=== PATIENT | male | born 1965 | race Caucasian/White ===

== ENCOUNTER 2017-09-10 14:23 | Emergency (ER) | payer SELFPAY ==
[2017-09-10 15:48] LABS: #Basophils 0.1 thou/uL (0.0-0.2); #Eosinphils 0.1 thou/uL (0.0-0.7); #Lymphocytes 2.9 thou/uL (1.20-3.40); #Monocytes 0.5 thou/uL (0.11-0.59); %Basophils 0.7 % (0.0-1.0); %Eosinophils 0.8 % (0.0-10.0); %Lymphocytes 33.9 % (21.0-51.0); %Monocytes 5.3 % (0.0-10.0); %Neutrophils 59.3 % (42.0-75.0); Hemoglobin 15.2 g/dL (14.0-18.0); Mean Corpuscular HGB CONC 33.5 g/dL (32.0-36.0); Mean Corpuscular Hemoglobin 31.2 pg (27.0-31.0); Mean Corpuscular Volume 93.2 fl (80.0-94.0); Mean Platelet Volume 10.1 fL (7.4-10.4); Platelet Count 184 thou/uL (130-400); RBC Distribution Width 11.5 % (11.5-14.5); Red Blood Cell (RBC) Count 4.87 mill/uL (4.70-6.10); White Blood Cell (WBC) Count 8.5 thou/uL (4.8-10.8)
[2017-09-10 16:08] LABS: ALT (SGPT) 12 U/L (8-55); AST (SGOT) 10 U/L (5-34); Albumin 4.4 g/dL (3.5-5.0); Alkaline Phosphatase 101 U/L (40-150); Anion Gap 11 mmol/L (10-20); BUN (Urea Nitrogen) 10 mg/dL (8.4-25.7); Bilirubin, Total 0.5 mg/dL (0.2-1.2); Calc. Creatinine Clearance 0 mL/min (70-130); Calcium 9.4 mg/dL (7.8-10.44); Carbon Dioxide 25 mmol/L (22-29); Chloride 102 mmol/L (98-107); Estimated GFR-MDRD 73; Globulin 2.5 g/dL (2.4-3.5); Glucose 256 mg/dL (70-105); Potassium 4.2 mmol/L (3.5-5.1); Protein, Total 6.9 g/dL (6.0-8.3); Sodium 134 mmol/L (136-145)
== END 2017-09-10 17:23 | disposition left against medical advice (07) ==
LOC: ERS 14:23
DX: Z53.21 Procedure and treatment not carried out due to patient leaving prior to being seen by health care provider (principal)
CPT/HCPCS: 36415; 80053; 85025

== ENCOUNTER 2017-09-10 18:21 | Emergency (ER) | payer SELFPAY | END 2017-09-10 18:39 | disposition left against medical advice (07) | LOC: ERS 18:21 | DX: Z53.21 Procedure and treatment not carried out due to patient leaving prior to being seen by health care provider (principal) ==

== ENCOUNTER 2017-11-27 02:01 | Emergency (ER) | payer SELFPAY ==
[2017-11-27 03:22] LABS: Troponin I 0.021 ng/mL (< 0.028)
[2017-11-27] MEDS ORDERED: cloNIDine 0.1 MG TAB ONE (04:17)
--- NOTE | 2018-01-30 12:32 | EKG ---
Test Reason : REPEAT Blood Pressure : / mmHG Vent. Rate : 065 BPM Atrial Rate : 065 BPM P-R Int : 170 ms QRS Dur : 102 ms QT Int : 432 ms P-R-T Axes : 066 056 079 degrees QTc Int : 449 ms Normal sinus rhythm Possible Left atrial enlargement T wave abnormality, consider lateral ischemia Abnormal ECG Confirmed by PHILIPP DEL CID ([id number]), book or script editor RADHA LUONG ([id number]) on 01/30/2018 12:31:47 PM Referred By: Confirmed By:PHILIPP DEL CID
== END 2017-11-27 04:30 | disposition home or self-care (01) ==
LOC: ERS 02:01
DX: R07.2 Precordial pain (principal); I12.9 Hypertensive chronic kidney disease with stage 1 through stage 4 chronic kidney disease, or unspecified chronic kidney disease; E11.22 Type 2 diabetes mellitus with diabetic chronic kidney disease; N18.3 Chronic kidney disease, stage 3 (moderate); E78.5 Hyperlipidemia, unspecified; I25.2 Old myocardial infarction; F41.9 Anxiety disorder, unspecified; F32.9 Major depressive disorder, single episode, unspecified; Z79.899 Other long term (current) drug therapy
CPT/HCPCS: 36415; 84484; 93005; 96365

== ENCOUNTER 2018-04-01 12:33 | Inpatient (IN) | payer SELFPAY ==
[2018-04-01] MEDS ORDERED: cloNIDine 0.1 MG TAB ONE (13:02)
[2018-04-01 13:16] LABS: Hemoglobin 17.8 g/dL (14.0-18.0); Mean Corpuscular HGB CONC 35.9 g/dL (32.0-36.0); Mean Corpuscular Hemoglobin 31.9 pg (27.0-31.0); Mean Corpuscular Volume 88.9 fL (78.0-98.0); Platelet Count 228 thou/uL (130-400); RBC Distribution Width 11.8 % (11.5-14.5); Red Blood Cell (RBC) Count 5.57 mill/uL (4.70-6.10); White Blood Cell (WBC) Count 23.2 thou/uL (4.8-10.8)
[2018-04-01 13:36] LABS: Band 2 % (5-11); CKMB 2.5 ng/mL (0-6.6); Lymphocytes 12 % (21-51); MDiff Complete? YES; Monocytes 5 % (0-10); Neutrophil 81 % (42-75); PLT Morphology Comment Appears Adequate; Troponin I 0.209 ng/mL (< 0.028)
[2018-04-01] MEDS ORDERED: Pantoprazole 40 MG VIAL ONE ×2 (13:36→13:40)
[2018-04-01] MEDS ORDERED: Ondansetron ODT 4 MG TAB ONE (13:36)
--- NOTE | 2018-04-01 13:39 | RAD ---
CHEST ONE VIEW: History: 53-year-old male with history of chest pain, history of Crohn's disease. Elevated serum glucose. FINDINGS: Monitor leads overlie the chest. Heart size is normal. The lungs are clear. IMPRESSION: No acute intrathoracic disease. Stable from prior study. POS: BRYNNH
[2018-04-01 13:46] LABS: ALT (SGPT) 15 U/L (8-55); AST (SGOT) 10 U/L (5-34); Albumin 5.4 g/dL (3.5-5.0); Alkaline Phosphatase 110 U/L (40-150); Anion Gap 31 mmol/L (10-20); BUN (Urea Nitrogen) 40 mg/dL (8.4-25.7); Bilirubin, Total 0.9 mg/dL (0.2-1.2); CK (CPK) 133 U/L (30-200); Calc. Creatinine Clearance 0 mL/min (70-130); Calcium 10.7 mg/dL (7.8-10.44); Carbon Dioxide 14 mmol/L (22-29); Chloride 84 mmol/L (98-107); Estimated GFR-MDRD 9; Globulin 3.8 g/dL (2.4-3.5); Glucose 909 mg/dL (70-105); Potassium 5.7 mmol/L (3.5-5.1); Protein, Total 9.2 g/dL (6.0-8.3); Sodium 123 mmol/L (136-145)
[2018-04-01] MEDS ORDERED: Insulin Regular 300 UNITS/3 ML VIAL ONE (13:55)
[2018-04-01] MEDS ORDERED: Labetalol HCl 100 MG/20 ML VIAL ONE (14:07)
[2018-04-01] MEDS ORDERED: Morphine 4 MG/ML VIAL ONE (14:15)
[2018-04-01 14:17] LABS: Magnesium 2.4 mg/dL (1.6-2.6); Phosphorus 4.9 mg/dL (2.3-4.7)
[2018-04-01] MEDS ORDERED: Insulin Regular 100 units/100 ml in NS IVPB SCH (15:15)
--- NOTE | 2018-04-01 16:06 | HP ---
DATE OF ADMISSION: 04/01/2018 PRIMARY CARE PHYSICIAN: Brady Lawrence M.D. REASON FOR ADMISSION: Acute kidney failure, hyperglycemia, severe dehydration, GI bleed. HISTORY OF PRESENT ILLNESS: A 53-year-old male who has history of diabetes type 2, hypertension, who presented to emergency room with complaint of nausea and vomiting. The patient reports that since yesterday afternoon, he had several episodes of nausea and vomiting. He was not able to keep anything down. He was feeling dizzy, lightheaded and very weak. He was not able to make any urine since this morning. He denies any diarrhea. He denies any unusual food ingestion. He denies any headache, but he was feeling chest discomfort earlier this morning. The patient reports that he ran out his clonidine and that is why he was not able to take that medication. When he came to the emergency room, his blood pressure was 186/141. He was tachycardic. He denies any current ongoing chest pain. He denies any fever or chills. He denies any cough. He was feeling shortness of breath and vague abdominal discomfort. The patient reported to me that for the last 2 weeks because of abdominal pain, he was taking Tylenol with half tablet of Aleve. He denies any melena. He denies any hematochezia. He was having initially food particle in vomitus material and subsequently only he was able to have dry heaves. When he came to emergency room, he had coffee ground vomiting, which was positive for gastric occult blood. The patient denies any alcohol abuse. He denies any urinary tract infection symptoms, but he does not have any urine output. Today, in the emergency room, he has leukocytosis with a left shift. He has severe hyponatremia, hypochloremia and hyperkalemia and his creatinine is elevated to 6.66. Three days ago, on 03/29/2018, the patient had routine blood test done by his primary care physician. At that time, his creatinine was 1.26. The patient reports that normally his blood sugar runs in the 150-200 range. When paramedics checked his blood sugar at that time, it was in 300 and when he arrived to the ER, his blood sugar was 900. His troponin is also slightly elevated. His ketone is also positive. At this point, we are admitting this patient in the IMCU for hyperglycemia with mild ketosis, acute kidney failure and coffee ground vomiting. The patient also had a similar problem of kidney failure in the past. PAST MEDICAL HISTORY: Diabetes type 2, hypertension, chronic kidney disease stage 2, irritable bowel syndrome, history of recurrent admission for acute kidney failure in the past. PAST SURGICAL HISTORY: I and D of his left hand for cellulitis and abscess. PAST PSYCHIATRIC HISTORY: Anxiety and depression. ADDITIONAL INFORMATION: The patient lives with his cousin in the [place] area and because he was having this much sickness, he advised him to go to the hospital, but the patient did not want to come to the hospital last night, but today he was not feeling good and that he was feeling worse, that is why he decided to go to the emergency room today. ALLERGIES: The patient is allergic to CORN and suspected allergy to KEFLEX. CURRENT HOME MEDICATIONS: Amlodipine 10 mg p.o. daily, clonidine 0.2 mg t.i.d. , which he ran out. He takes metformin 1000 mg p.o. b.i.d. for his diabetes, aspirin 81 mg p.o. daily, Zoloft 50 mg p.o. daily. FAMILY HISTORY: Positive for coronary artery disease to his mother. SOCIAL HISTORY: The patient has a remote history of cocaine abuse in the past, but he currently denies any tobacco, alcohol or illicit drug abuse. He lives with his cousin. REVIEW OF SYSTEMS: The following complete review of systems was negative, unless otherwise mentioned in the HPI or below: Constitutional: Weight loss or gain, ability to conduct usual activities. Skin: Rash, itching. Eyes: Double vision, pain. ENT/Mouth: Nose bleeding, neck stiffness, pain, tenderness. Cardiovascular: Palpitations, dyspnea on exertion, orthopnea. Respiratory: Shortness of breath, wheezing, cough, hemoptysis, fever or night sweats. Gastrointestinal: Poor appetite, abdominal pain, heartburn, nausea, vomiting, constipation, or diarrhea. Genitourinary: Urgency, frequency, dysuria, nocturia. Musculoskeletal: Pain, swelling. Neurologic/Psychiatric: Anxiety, depression. Allergy/Immunologic: Skin rash, bleeding tendency. Please see my HPI for pertinent positive and negative. All other review of systems reviewed and negative except as mentioned in the HPI. EMERGENCY ROOM COURSE: The patient has received morphine 4 mg, labetalol 20 mg , Humulin R insulin drip, Protonix drip, Zofran 4 mg, clonidine 0.1 mg. PHYSICAL EXAMINATION: VITAL SIGNS: On arrival, blood pressure 186/141, pulse 140, respiratory rate 24 , temperature 98.6, saturation 100% on room air, weight 86.1 kilograms. GENERAL: The patient is currently in mild distress. He is hypertensive, tachycardic. HEAD: Normocephalic, atraumatic. EYES: Pupils round, reactive to light. Extraocular muscles intact. ENT: Dry appearing mucous membranes. No oral lesion, no pharyngeal erythema, no exudate. NECK: Supple. No JVD, no thyromegaly, no carotid bruit. LUNGS: Clear to auscultation without any rhonchi or rales. CARDIAC: S1, S2 regular, tachycardia. No murmur, no gallop, no rub. ABDOMEN: Diffuse, vague discomfort noted. Mild epigastric discomfort noted. No peritoneal sign. No guarding, no rigidity, no rebound, no suprapubic tenderness. BACK: Unremarkable. No CVA tenderness. EXTREMITIES: Upper extremities, passive movement of all joints are normal. Lower extremities, no edema. Good peripheral pulsation. SKIN: No skin rash. HEMATOLOGICAL: No lymphadenopathy. PSYCHIATRIC: Normal affect. SIGNIFICANT LABORATORY DATA: EKG showing sinus tachycardia, nonspecific ST-T changes, LVH with repolarization changes. Chest x-ray based on my review, no acute cardiopulmonary process. CBC, WBC 23.2, hemoglobin 17.8, platelet 228, 000 with a left shift with bandemia. BMP, sodium 123, potassium 5.7, chloride 84, carbon dioxide 14, anion gap 31, BUN 40, creatinine 6.66, glucose 909, calcium 10.7, phosphorus 4.9, magnesium 2.4. LFT, AST 10, ALT 15, alkaline phosphatase 110, albumin 5.4, CK 133, CK-MB 2.5, troponin 0.0209. Serum ketones 1.0. ASSESSMENT AND PLAN: 1. Hyperglycemia associated with diabetes type 2 with mild ketosis, hyperosmolar state. The patient will require insulin drip. We will keep him in IMCU. We will monitor Accu-Chek every hourly and titrate insulin drip based on blood sugar. 2. Acute kidney failure. The patient has several nausea, vomiting and unable to tolerate p.o. His creatinine was normal 3 days ago and currently 6.66, likely due to hyperglycemia and hyperosmolar state with dehydration. The patient will be given bicarbonate drip. We will consult Nephrology. We will monitor renal function. We will avoid nephrotoxin agent. 3. Hyponatremia and hypochloremia, likely due to volume depletion from nausea and vomiting. The patient will be given half normal saline with sodium bicarbonate and we will repeat BMP tomorrow. 4. Hyperkalemia, likely due to metabolic acidosis from renal failure. The patient is getting bicarbonate drip and we are expecting potassium should get better. 5. Anion gap metabolic acidosis from renal failure as well as hyperglycemia. The patient is getting bicarbonate drip and we will monitor electrolytes. 6. Chest pain. We will do serial cardiac enzymes x3 to rule out acute coronary syndrome. Currently elevated troponin may be related with demand ischemia. 7. Acute upper gastrointestinal bleed. The patient will continue Protonix drip. I am suspecting Sherry-Curran tear from recurrent nausea and vomiting episode. We will repeat CBC tomorrow. We will consult cattle dealer as he may need upper endoscopic evaluation given the patient has a history of previous peptic ulcer disease and the patient has recent nonsteroidal anti- inflammatory drug use. 8. Leukocytosis with bandemia, most likely related with stress response, does not suspect any infection, but cannot be entirely excluded. We will send blood and urine culture. If the patient gets fever while in hospital and if his WBC count remains persistent, then we will consider antibiotic therapy. At this point, our main suspicion is stress response and that is why he has leukocytosis. 9. Hypertension with hypertensive urgency. The patient ran out of his clonidine that contributed to his rebound hypertension. We will continue clonidine, amlodipine as per home dosage. 10. Anxiety and depression. We will continue Zoloft while in hospital. 11. Deep venous thrombosis prophylaxis. Sequential compression device boots only. No heparin products because of gastrointestinal bleed. 12. Gastrointestinal prophylaxis. The patient will be on Protonix drip. 13. Code status: The patient is full code. The patient does not have any surrogate decision maker. Disposition plan based on clinical course. We are expecting the patient's stay in hospital more than 2 midnights. Plan of care discussed with the patient in detail. TANNERD
[2018-04-01 16:56] LABS: Bilirubin Negative (Negative); Blood, Urine Large (Negative); Glucose, Urine (Dipstick) >=1000 mg/dL (Negative); Leukocyte Negative (Negative); Nitrite Negative (Negative); Protein, Urine (Dipstick) 30 mg/dL (Neg-Trace); Urobilinogen 0.2 mg/dL (0.2-1.0); pH, Urine 5.5 (5.0-9.0)
[2018-04-01] MEDS ORDERED: Diabetic Tussin 200 MG/10 ML UDCUP PO PRN (16:57)
[2018-04-01] MEDS ORDERED: Chloraseptic Spray 180 ml Bottle PO PRN (16:57)
[2018-04-01] MEDS ORDERED: Labetalol HCl 100 MG/20 ML VIAL SLOW IVP PRN (16:57)
[2018-04-01] MEDS ORDERED: Senokot 8.6 MG TAB PO PRN (16:57)
[2018-04-01] MEDS ORDERED: Loratadine 10 MG TAB PO PRN (16:57)
[2018-04-01] MEDS ORDERED: Nitroglycerin 0.4 MG TAB (25 Tab Bottle) SL PRN (16:57)
[2018-04-01] MEDS ORDERED: Artificial Tear Sol 15 ML BOT EA EYE PRN (16:57)
[2018-04-01] MEDS ORDERED: Sodium Chloride 0.65% Nasal 44 ML BOT EA NARE PRN (16:57)
[2018-04-01] MEDS ORDERED: Acetaminophen 325 MG TAB PO PRN (16:57)
[2018-04-01] MEDS ORDERED: Milk Of Magnesia 30 ML UDCUP PO PRN (16:57)
[2018-04-01] MEDS ORDERED: cloNIDine 0.1 MG TAB PO PRN (16:57)
[2018-04-01] MEDS ORDERED: Loperamide HCl 2 MG CAP PO PRN (16:57)
[2018-04-01] MEDS ORDERED: Eucerin (Mineral Oil/Petrolatum,White) 30 gm Jar TOP PRN (16:57)
[2018-04-01] MEDS ORDERED: Zolpidem Tartrate 5 MG TAB PO PRN (16:57)
[2018-04-01] MEDS ORDERED: Ondansetron ODT 4 MG TAB PO PRN (16:57)
[2018-04-01 17:03] LABS: Clarity CLEAR (Clear)
[2018-04-01] MEDS ORDERED: Acetaminophen 325 MG TAB ONE (17:06)
[2018-04-01 17:07] LABS: Bacteria/HPF 1+ HPF (None Seen); Hyaline Casts/LPF NONE SEEN LPF (0-3 Hyaline); RBC/HPF 0-3 HPF (0-3); Squamous Epithelial 0-3 HPF (0-3); WBC/HPF None Seen HPF (0-3)
[2018-04-01] MEDS ORDERED: Sodium Bicarbonate 100 MEQ in Sodium Chloride 0.45% 1,000 ML IV SCH (17:30)
[2018-04-01] MEDS ORDERED: Pantoprazole 80 MG in Sodium Chloride 0.9% 100 ML IVP SCH (17:30)
[2018-04-01 18:20] LABS: Hemoglobin 18.3 g/dL (14.0-18.0); Mean Corpuscular HGB CONC 35.8 g/dL (32.0-36.0); Mean Corpuscular Hemoglobin 31.5 pg (27.0-31.0); Mean Platelet Volume 10.5 fL (7.4-10.4); Platelet Count 211 thou/uL (130-400); RBC Distribution Width 11.8 % (11.5-14.5); Red Blood Cell (RBC) Count 5.83 mill/uL (4.70-6.10); White Blood Cell (WBC) Count 30.9 thou/uL (4.8-10.8)
[2018-04-01 18:37] LABS: Band 16 % (5-11); Lymphocytes 6 % (21-51); MDiff Complete? YES; Monocytes 5 % (0-10); Neutrophil 69 % (42-75); Reactive Lymphocytes 4 % (0-10)
[2018-04-01 18:42] LABS: Anion Gap 24 mmol/L (10-20); BUN (Urea Nitrogen) 42 mg/dL (8.4-25.7); Calc. Creatinine Clearance 0 mL/min (70-130); Calcium 10.7 mg/dL (7.8-10.44); Carbon Dioxide 17 mmol/L (22-29); Chloride 95 mmol/L (98-107); Estimated GFR-MDRD 10; Glucose 500 mg/dL (70-105); Potassium 3.8 mmol/L (3.5-5.1); Sodium 132 mmol/L (136-145)
[2018-04-01 18:43] LABS: Lactic Acid 5.1 mmol/L (0.5-2.2)
[2018-04-01 18:48] LABS: CKMB 4.6 ng/mL (0-6.6)
[2018-04-01 18:55] LABS: Troponin I 0.147 ng/mL (< 0.028)
[2018-04-01] MEDS ORDERED: hydrALAZINE 20 MG/ML VIAL ONE (19:16)
[2018-04-01] MEDS ORDERED: HYDROcodone/Acetaminophen 5/325 mg Tablet ONE (21:28)
[2018-04-01 21:47] LABS: CKMB 5.7 ng/mL (0-6.6); Troponin I 0.149 ng/mL (< 0.028)
[2018-04-01 22:18] LABS: Anion Gap 22 mmol/L (10-20); BUN (Urea Nitrogen) 43 mg/dL (8.4-25.7); Calc. Creatinine Clearance 0 mL/min (70-130); Carbon Dioxide 22 mmol/L (22-29); Chloride 98 mmol/L (98-107); Estimated GFR-MDRD 11; Glucose 134 mg/dL (70-105); Potassium 3.3 mmol/L (3.5-5.1); Sodium 139 mmol/L (136-145)
[2018-04-01] MEDS: D5 1/2 NS w/40 mEq KCL 1,000 ML IV SCH (22:38)
[2018-04-01] MEDS: cloNIDine 0.2 MG TAB PO SCH (22:41)
[2018-04-01] MEDS: Ondansetron HCl/PF 4 MG/2 ML Vial IVP PRN (23:21)
[2018-04-01 23:34] LABS: Creatinine, Urine 46.31 mg/dL (63-166)
[2018-04-01] MEDS ORDERED: Sodium Chloride 0.9% 1,000 ML IV SCH (23:45)
[2018-04-02] MEDS: Diltiazem 125 MG in Sodium Chloride 0.9% 100 ML IVPB SCH ×2 (01:04→09:18)
[2018-04-02] MEDS: cloNIDine 0.2 MG TAB PO SCH ×4 (01:12→21:33)
[2018-04-02] MEDS: HYDROcodone/Acetaminophen 5/325 mg Tablet PO PRN ×4 (01:13→21:34)
[2018-04-02] MEDS ORDERED: cloNIDine 0.2 MG TAB PO SCH (01:15)
[2018-04-02 02:22] LABS: Hemoglobin A1c 8.5 % (4.0-6.0)
[2018-04-02] MEDS ORDERED: Sodium Chloride 0.9% 500 ML IVPB SCH (02:30)
[2018-04-02 02:47] LABS: Band 9 % (5-11); Hemoglobin 16.5 g/dL (14.0-18.0); Lymphocytes 3 % (21-51); MDiff Complete? YES; Mean Corpuscular HGB CONC 36.4 g/dL (32.0-36.0); Mean Corpuscular Hemoglobin 32.1 pg (27.0-31.0); Mean Platelet Volume 10.3 fL (7.4-10.4); Monocytes 3 % (0-10); Neutrophil 85 % (42-75); Platelet Count 166 thou/uL (130-400); RBC Distribution Width 11.7 % (11.5-14.5); Red Blood Cell (RBC) Count 5.15 mill/uL (4.70-6.10); White Blood Cell (WBC) Count 25.3 thou/uL (4.8-10.8)
[2018-04-02 02:53] LABS: ALT (SGPT) 13 U/L (8-55); AST (SGOT) 15 U/L (5-34); Albumin 4.3 g/dL (3.5-5.0); Alkaline Phosphatase 87 U/L (40-150); Anion Gap 19 mmol/L (10-20); BUN (Urea Nitrogen) 42 mg/dL (8.4-25.7); Bilirubin, Total 0.4 mg/dL (0.2-1.2); Calc. Creatinine Clearance 21 mL/min (70-130); Calcium 9.4 mg/dL (7.8-10.44); Carbon Dioxide 20 mmol/L (22-29); Cardiac Risk 6.6 (Less than 4.5); Chloride 101 mmol/L (98-107); Cholesterol 251 mg/dl (< 200 Desired); Estimated GFR-MDRD 14; Globulin 2.8 g/dL (2.4-3.5); Glucose 232 mg/dL (70-105); HDL Cholesterol 38 mg/dL (>60 Neg Risk); LDL Cholesterol, Calculated 149 mg/dL; Magnesium 2.1 mg/dL (1.6-2.6); Phosphorus 3.3 mg/dL (2.3-4.7); Potassium 3.7 mmol/L (3.5-5.1); Protein, Total 7.1 g/dL (6.0-8.3); Sodium 136 mmol/L (136-145); Triglycerides 321 mg/dL (Less than 150)
[2018-04-02] MEDS: D5 1/2 NS w/40 mEq KCL 1,000 ML IV SCH ×2 (03:57→12:28)
[2018-04-02] MEDS: Pantoprazole 40 MG VIAL IVP SCH ×2 (08:27→21:33)
[2018-04-02] MEDS: Ondansetron HCl/PF 4 MG/2 ML Vial IVP PRN ×2 (08:27→16:42)
[2018-04-02] MEDS ORDERED: HumaLOG 300 UNITS/3 ML VIAL SC PRN (08:46)
[2018-04-02] MEDS ORDERED: Dextrose 5% in Water 1,000 ML IV PRN (08:46)
[2018-04-02] MEDS ORDERED: Dextrose 50% Abboject 50 ML SYRINGE SLOW IVP PRN (08:46)
[2018-04-02] MEDS ORDERED: Amlodipine 10 MG TAB PO SCH (09:00)
--- NOTE | 2018-04-02 09:57 | CON ---
DATE OF CONSULTATION: 04/02/2018 CONSULTING PHYSICIAN: Dr. Melton. REASON FOR CONSULTATION: Acute kidney injury. REASON FOR ADMISSION: Dehydration. HISTORY OF PRESENT ILLNESS: This is a 53-year-old male with history of type 2 diabetes, hypertension , frequent DKA from dehydration in the past with chronic kidney disease, who came to the hospital wit h not feeling well, nausea, vomiting, and was found to have elevated creatinine at 6.6, last creatini ne was 1.6 two weeks back. No fever or chills. Complaining of nausea and vomiting. No chest pain o r palpitation. PAST MEDICAL HISTORY: Positive for type 2 diabetes, hypertension, chronic kidney disease. PAST SURGICAL HISTORY: Left hand surgery. HOME MEDICATIONS: Include amlodipine, clonidine, metformin, aspirin, Zoloft. ALLERGIES: To CORN and KEFLEX. SOCIAL HISTORY: History of cocaine abuse in the past. No alcohol abuse or tobacco use recently. FAMILY HISTORY: Positive for heart disease. REVIEW OF SYSTEMS: The following complete review of systems was negative, unless otherwise mentioned in the HPI or below: Constitutional: Weight loss or gain, ability to conduct usual activities. Skin: Rash, itching. Eyes: Double vision, pain. ENT/Mouth: Nose bleeding, neck stiffness, pain, tenderness. Cardiovascular: Palpitations, dyspnea on exertion, orthopnea. Respiratory: Shortness of breath, wheezing, cough, hemoptysis, fever or night sweats. Gastrointestinal: Poor appetite, abdominal pain, heartburn, nausea, vomiting, constipation, or diarr hea. Genitourinary: Urgency, frequency, dysuria, nocturia. Musculoskeletal: Pain, swelling. Neurologic/Psychiatric: Anxiety, depression. Allergy/Immunologic: Skin rash, bleeding tendency. PHYSICAL EXAMINATION: GENERAL: This is a well-built male, in no apparent distress. VITAL SIGNS: Temperature 98.0, pulse 130, respiratory rate 18, blood pressure 129/84. HEENT: Atraumatic, normocephalic. Oral mucosa is moist. NECK: Supple. CARDIOVASCULAR: S1, S2 heard. Rate and rhythm regular. RESPIRATORY: Clear. GASTROINTESTINAL: Abdomen is soft. MUSCULOSKELETAL: 1+ edema. DERMATOLOGIC: Chronic skin rash present and redness. LABORATORY DATA: Creatinine is 4.54, potassium is 3.7, hemoglobin is 16.5. ASSESSMENT AND PLAN: 1. Acute kidney injury, getting better with hydration. Agree with current management. Avoid nephro toxins. 2. Hyperglycemia. 3. Hemoconcentration. 4. Edema, controlled. 5. Hypertension. Titrate medications. 6. Agree with IV fluids. Avoid nephrotoxins. Renally dose all the medications and monitor blood pr essure closely. We will follow. Thank you for the consult. Replace potassium, cautiously.
--- NOTE | 2018-04-02 13:01 | PDOC.PN ---
- Subjective Encounter Start Date: 04/02/18 Encounter Start Time: 10:15 -: old records requested/rev Patient seen and examined. No new complaints. No overnight events pt has vague abdominal discomfort, but no hemetemesis, no nausea and vomiting his heart rate was very fast so last night cardizem drip was started - Objective Resuscitation Status: Resuscitation Status FULL:Full Resuscitation MAR Reviewed: Yes Vital Signs & Weight: Vital Signs (12 hours) Temp Pulse Resp BP BP Pulse Ox 04/02/18 11:34 98.0 F 87 14 116/77 97 04/02/18 08:30 138 H 166/120 H 04/02/18 08:27 166/120 H 04/02/18 08:00 98.0 F 87 14 97 04/02/18 07:46 98.0 F 138 H 18 129/84 99 04/02/18 04:00 97.7 F 93 20 169/85 H 97 04/02/18 02:54 184/140 H 04/02/18 01:12 184/140 H Weight Admit Weight 173 lb Weight 173 lb I&O: 04/01/18 04/02/18 04/03/18 06:59 06:59 06:59 Intake Total 200 2039 Output Total 525 Balance -325 9 Result Diagrams: 04/02/18 01:54 04/02/18 01:54 Additional Labs: Accuchecks 04/02/18 04/02/18 04/02/18 12:03 11:06 09:54 POC Glucose 175 H 138 H 109 04/02/18 04/02/18 04/02/18 08:05 07:01 06:01 POC Glucose 165 H 180 H 193 H 04/02/18 04/02/18 04/02/18 05:15 03:56 02:55 POC Glucose 165 H 125 H 171 H 04/02/18 04/02/18 04/01/18 01:54 00:56 23:51 POC Glucose 192 H 222 H 181 H 04/01/18 04/01/18 04/01/18 22:46 21:12 20:14 POC Glucose 106 168 H 221 H 04/01/18 04/01/18 04/01/18 19:13 18:06 17:05 POC Glucose 340 H 485 H Greater than 550 H* 04/01/18 15:54 POC Glucose Greater than 550 H* EKG Reviewed by me: Yes (atrial tachyarrhtymia) Phys Exam - Physical Examination Constitutional: NAD HEENT: PERRLA, moist MMs, sclera anicteric Neck: no JVD, supple Respiratory: no wheezing, no rales, no rhonchi Cardiovascular: no significant murmur, irregular tachy Gastrointestinal: soft, non-tender, no distention, positive bowel sounds Musculoskeletal: no edema, pulses present Neurological: non-focal, normal sensation, moves all 4 limbs Lymphatic: no nodes Psychiatric: normal affect, A&O x 3 Skin: no rash, normal turgor Dx/Plan (1) ARF (acute renal failure) Status: Acute Comment: renal function improving (2) Atrial tachycardia Code(s): I47.1 - SUPRAVENTRICULAR TACHYCARDIA Status: Acute (3) Diabetic hyperosmolar non-ketotic state Code(s): E11.00 - TYPE 2 DIAB W HYPROSM W/O NONKET HYPRGLY-HYPROS COMA ([facility]) Status: Resolved (4) GI bleed Code(s): K92.2 - GASTROINTESTINAL HEMORRHAGE, UNSPECIFIED Status: Acute (5) Hyperkalemia Code(s): E87.5 - HYPERKALEMIA Status: Resolved (6) Hyponatremia Code(s): E87.1 - HYPO-OSMOLALITY AND HYPONATREMIA Status: Acute (7) Leucocytosis Code(s): D72.829 - ELEVATED WHITE BLOOD CELL COUNT, UNSPECIFIED Status: Acute (8) Metabolic acidosis Code(s): E87.2 - ACIDOSIS Status: Acute (9) Nausea & vomiting Code(s): R11.2 - NAUSEA WITH VOMITING, UNSPECIFIED Status: Acute (10) CKD (chronic kidney disease) stage 2, GFR 60-89 ml/min Code(s): N18.2 - CHRONIC KIDNEY DISEASE, STAGE 2 (MILD) Status: Chronic (11) DM2 (diabetes mellitus, type 2) Status: Chronic (12) Dyslipidemia Code(s): E78.5 - HYPERLIPIDEMIA, UNSPECIFIED Status: Chronic (13) Hypertension Code(s): I10 - ESSENTIAL (PRIMARY) HYPERTENSION Status: Chronic - Plan cont current plan of care * will DC insulin drip * now will check accucheck q 4 hrly and cover as per sliding scale * renal function improving, nephrology following * medication reviewed as below * symptomatic treatment * will continue cardizem drip and consult cardiology * get echo today * continue IVF with bacrb * monitor potassium and replace if needed * will repeat labs tomorrow. Review of Systems - Review of Systems Eyes: negative: Pain, Vision Change, Conjunctivae Inflammation, Eyelid Inflammation, Redness, Other ENT: negative: Ear Pain, Ear Discharge, Nose Pain, Nose Discharge, Nose Congestion, Mouth Pain, Mouth Swelling, Throat Pain, Throat Swelling, Other Respiratory: negative: Cough, Dry, Shortness of Breath, Hemoptysis, SOB with Excertion, Pleuritic Pain, Sputum, Wheezing Cardiovascular: negative: chest pain, palpitations, orthopnea, paroxysmal nocturnal dyspnea, edema, light headedness, other Gastrointestinal: Nausea, Abdominal Pain. negative: Vomiting, Diarrhea, Constipation, Melena, Hematochezia, Other Genitourinary: negative: Dysuria, Frequency, Incontinence, Hematuria, Retention , Other Musculoskeletal: negative: Neck Pain, Shoulder Pain, Arm Pain, Back Pain, Hand Pain, Leg Pain, Foot Pain, Other Skin: negative: Rash, Lesions, Harrison, Bruising, Other - Medications/Allergies Allergies/Adverse Reactions: Allergies Allergy/AdvReac Type Severity Reaction Status Date / Time cephalexin [From Keflex] Allergy Mild Rash Verified 04/01/18 23:01 corn Allergy Mild Diarrhea Verified 12/18/15 12:39 Medications: Current Medications Acetaminophen (Tylenol) 650 mg PO Q4H PRN PRN Reason: Headache/Fever or Pain Hydrocodone Bitart/Acetaminophen ([place] 5/325) 1 tab PO Q4H PRN PRN Reason: Moderate Pain (4-6) Last Admin: 04/02/18 09:02 Dose: 1 tab Artificial Tears (Tears Renewed 15ml Bottle) 0 drop EA EYE PRN PRN PRN Reason: Dry Eyes Clonidine (Catapres) 0.1 mg PO Q4H PRN PRN Reason: Systolic BP > 180 Clonidine (Catapres) 0.4 mg PO TID [facility] Last Admin: 04/02/18 08:27 Dose: 0.4 mg Dextrose/Water (Dextrose 50%) 25 gm SLOW IVP PRN PRN PRN Reason: Hypoglycemia Diltiazem HCl (Cardizem Sr) 60 mg PO QID [facility] Glucagon (Glucagon) 1 mg IM PRN PRN PRN Reason: Hypoglycemia Guaifenesin (Robitussin Sf) 200 mg PO Q4H PRN PRN Reason: Cough Potassium Chloride/Dextrose/Sod Cl (D5 1/2 Ns W/40 Meq Kcl) 1,000 mls @ 200 mls /hr IV .Q5H [facility] Last Admin: 04/02/18 12:28 Dose: 1,000 mls Diltiazem HCl 125 mg/ Sodium (Chloride) 125 mls @ 0 mls/hr IVPB INF EVANGELINA; Protocol Last Admin: 04/02/18 09:18 Dose: 125 mls Dextrose/Water (D5w) 1,000 mls @ 0 mls/hr IV .Q0M PRN PRN Reason: Hypoglycemia Insulin Human Lispro (Humalog) 0 units SC .MODERATE SLIDING SC PRN PRN Reason: Moderate Correctional Scale Insulin Human Lispro (Humalog) 0 units SC .BEDTIME SLIDING SC PRN PRN Reason: Bedtime Correctional Scale Labetalol HCl (Normodyne) 20 mg SLOW IVP Q4H PRN PRN Reason: Systolic BP > 180 Loperamide HCl (Imodium) 2 mg PO PRN PRN PRN Reason: Diarrhea/Loose Stools Loratadine (Claritin) 10 mg PO DAILYPRN PRN PRN Reason: Sinus Symptoms Magnesium Hydroxide (Milk Of Magnesium) 30 ml PO DAILYPRN PRN PRN Reason: Constipation Mineral Oil/White Petrolatum (Eucerin Cream) 0 gm TOP BIDPRN PRN PRN Reason: Dry Skin Nitroglycerin (Nitrostat) 0.4 mg SL Q5MIN PRN PRN Reason: Chest Pain Ondansetron HCl (Zofran Odt) 4 mg PO Q6H PRN PRN Reason: Nausea/Vomiting Ondansetron HCl (Zofran) 4 mg IVP Q6H PRN PRN Reason: Nausea/Vomiting Last Admin: 04/02/18 08:27 Dose: 4 mg Pantoprazole Sodium (Protonix) 40 mg IVP BID [facility] Last Admin: 04/02/18 08:27 Dose: 40 mg Phenol (Chloraseptic [place] 180 Ml Bot) 0 ml PO PRN PRN PRN Reason: Sore Throat Senna (Senokot) 2 tab PO HSPRN PRN PRN Reason: Constipation Sodium Chloride (Nance Nasal [place] 0.65%) 0 ml EA NARE QIDPRN PRN PRN Reason: Nasal Congestion Zolpidem Tartrate (Ambien) 5 mg PO HSPRN PRN PRN Reason: Insomnia
--- NOTE | 2018-04-02 13:03 | CON ---
DATE OF CONSULTATION: 04/02/2018 REASON FOR CONSULTATION: Atrial flutter. Please see Dr. Phani Devine's full consultation for details. HISTORY OF PRESENT ILLNESS: Briefly Mr. Little is a 53-year-old gentleman who recently presented with hyperosmolar state. He also presented with marked renal insufficiency with creatinine of 6. On 12/11 his creatinine was at 1.6. He has had persistent nausea, vomiting, likely from hyperosmolar s cobos. He has no previous history of atrial flutter. He has no previous history of atrial fibrillation. No previous history of underlying coronary disease. PHYSICAL EXAMINATION: VITAL SIGNS: Blood pressure 116/77, pulse 87, temperature 98. GENERAL: Patient is a pleasant male who is in no acute distress. The patient appears his stated age. NEUROLOGIC: The patient is alert and oriented times 3 with no focal neurologic deficits. HEENT: Sclerae without icterus. Mouth has moist mucous membranes with normal pallor. NECK: No JVD. Carotid upstroke brisk. No bruits bilaterally. LUNGS: Clear to auscultation with unlabored respirations. BACK: No scoliosis or kyphosis. CARDIAC: Irregularly irregular. ABDOMEN: Soft, nontender, nondistended. No peritoneal signs present. No hepatosplenomegaly. No abn ormal striae. EXTREMITIES: 2+ femoral and 2+ dorsalis pedis pulses. No cyanosis, clubbing, or edema. SKIN: No gross abnormalities. PERTINENT LABS: Hemoglobin 16.5, creatinine peaked of 6.6, now 4.5. IMPRESSION: Atrial flutter. RECOMMENDATIONS: Mr. Little's LVEF is normal on recent echo. We will continue to rate control. He is on 50 mg IV Cardizem. We will supplement with p.o. Cardizem for better rate control and try and we an off IV Cardizem. Also, consult with EP for possible ablation.
--- NOTE | 2018-04-02 13:34 | CON ---
DATE OF CONSULTATION: 04/02/2018 Mr. Little is a very pleasant gentleman who says he has had episodes of nausea and vomiting in the past. He says sometimes he goes and sits in the shower and this usually gets better within 10 minutes. He said he took a very long hot shower, was not feeling better and continued to have nausea and vomiting as well as some abdominal discomfort. He did have some coffee grounds reportedly in the Emergency Department. He subsequently was found to be extremely hyperglycemic. He has been admitted for hydration. PAST MEDICAL HISTORY: Remarkable for, 1. Diabetes. He said he has never had a blood sugar this high. He says at his house, the glucometer was reading in the high 300s. 2. History of hypertension. 3. History of chronic kidney disease. 4. History of irritable bowel. 5. History of renal insufficiency in the past. 6. History of incision and drainage of abscess in his hand in the past. 7. History of anxiety and depression. ALLERGIES: He reports a CEPHALOSPORIN allergy. SOCIAL HISTORY: He is a nonsmoker, nondrinker. FAMILY HISTORY: Positive for vascular disease, but none for lung disease in early age. SOCIAL HISTORY: He is a distant past drug user. REVIEW OF SYSTEMS: 10 point system review completed, otherwise negative. He says everything is feeling better now. PHYSICAL EXAMINATION: GENERAL: He is a very pleasant gentleman who says he has had episodes of nausea and vomiting in the past VITAL SIGNS: He is afebrile, heart rate is 87, blood pressure 166/120 then 116/ 77 later, room air oximetry is 97. HEENT: Pupils equal. Sclerae are anicteric. NECK: Supple. No lymphadenopathy. LUNGS: Clear. HEART: Regular rhythm. S1 and S2 are normal. ABDOMEN: Soft and nontender. EXTREMITIES: No clubbing, cyanosis or edema. LABORATORY DATA: White count is 25.3, hemoglobin 16.5. Glucose 166. Urinalysis remarkable mainly for glucosuria. IMPRESSION: Hyperosmolar nonketotic hyperglycemia secondary to gastrointestinal problems and extreme dehydration. PLAN: Hydration and adjustment of his meds. Close monitoring of his neurological status. His presenting glucose was 909 yesterday at 1:00. He is down to less than 200 now, so he will most likely have some cerebral edema associated with this, but hopefully that would not be a clinical issue. This is a 50 minute consult with greater than 50% of time spent on unit with coordination of care. ASHLEY
[2018-04-02] MEDS: Diltiazem HCl SR 60 mg Capsule PO SCH ×3 (13:49→21:36)
--- NOTE | 2018-04-02 14:57 | CON ---
Kourtney Vasquez, SAMUEL-C dictating for Zacarias Ontiveros M.D. ELECTROPHYSIOLOGY CONSULTATION DATE OF CONSULTATION: 04/02/2018 REFERRING PHYSICIAN: Saud Chen M.D. REASON FOR CONSULTATION: Atrial flutter. HISTORY OF PRESENT ILLNESS: Mr. Little is a pleasant gentleman, who was admitted yesterday in a hypero smolar state. He was at home and was having episodes of persistent nausea and vomiting, which in the past has been relieved with hot shower. Unfortunately, this is not the case this time. He continue d to have nausea and vomiting as well as abdominal discomfort and called 911. During his evaluation, he is found to have a blood glucose level in the high 300s and was found to be in atrial flutter wit h RVR with rates as high as 155 beats per minute. He has also reported some hematemesis and coffee-g round emesis in the emergency room. He is admitted for hydration and for management of his hyperglyc emia and reports that he is feeling somewhat better, but continues to have no appetite with some pers isting nausea. He also experiences some palpitations, heart racing, and some persisting weakness tod ay. Mr. Little has never been diagnosed with abnormal heart rhythms or told that he has abnormal heart rhyt hms in the past. REVIEW OF SYSTEMS: Twelve-point review of systems conducted and is negative except that listed above in the HPI. PAST MEDICAL HISTORY: 1. Type 2 diabetes. 2. Hypertension. 3. Chronic kidney disease. 4. Irritable bowel disease. 5. Anxiety. 6. Depression. 7. Incision and drainage of an abscess in his hand. ALLERGIES: CEPHALOSPORIN. HOME MEDICATION LIST: Amlodipine 5 mg daily; Catapres 2 tablets p.o. t.i.d., dose unknown; Glucophag e 1000 mg p.o. b.i.d.; and aspirin 81 mg daily. SOCIAL HISTORY: Negative for tobacco, negative for alcohol, and negative for illicit drug use. FAMILY HISTORY: Negative for early onset coronary artery disease, sudden cardiac , or arrhythmi a. PHYSICAL EXAMINATION: MOST RECENT VITAL SIGNS: Temperature 98.0 degrees Fahrenheit, pulse 138, respirations 14, oxygen is 97% on room air, blood pressure is 116/77. GENERAL: This is a well-appearing, well-groomed gentleman, in no apparent distress. He is alert and oriented. His speech is clear. His affect is appropriate. HEENT: He is normocephalic, atraumatic. Sclerae are anicteric. EOMs are intact. His oral mucosa i s moist and pink with adequate dentition. NECK: Supple without jugular venous distention. HEART: Rate is rapid. PMI is nondisplaced. EXTREMITIES: Warm and dry to touch without clubbing, cyanosis, or edema. LUNGS: Clear to auscultation bilaterally without wheezes, crackles, or rhonchi. Respirations are ev en and unlabored with good bilateral excursion. ABDOMEN: Soft and nondistended. Positive bowel sounds are noted throughout. Hepatojugular reflux i s negative. NEUROLOGIC EXAM: Grossly intact and nonfocal and his gait was not assessed. DATABASE: Telemetry/EKG. All were personally reviewed and reflect likely CTI-dependent atrial flutt er with variable AV conduction. LABORATORY DATA: WBC 25.3, hemoglobin 16.5, platelet count is 166. Chemistry: Sodium 136, potassiu m 3.7, BUN is 42. Anion gap is 19, creatinine is 4.54. A1c is 8.5, magnesium is 2.1 (anion gap was 31 on presentation). IMPRESSION: 1. Cavotricuspid isthmus-dependent/typical atrial flutter with rapid ventricular response. 2. Hyperosmolar nonketotic hyperglycemia secondary to gastrointestinal issues and extreme dehydratio n with poor diabetic control. 3. Obesity with recent weight loss, intentional, dropping from 230-190. 4. Hematemesis. 5. CHADS-VASc score of 2 on the basis of hypertension and diabetes. There is an indication for oral anticoagulation; however, with this hematemesis, this may not be advisable without further evaluatio n. He does report oral NSAID intake. PLAN: Continue diltiazem drip at this time for rate control. Once his acidosis and diabetes are bet ter controlled, we will plan for SHRAVAN followed by an ablation for his atrial flutter. Risks, alternat jhon, and benefits were discussed with the patient. The risks disclosed include damage to the vocal cords or hoarse throat or perforation of the esophagus with the SHRAVAN and hematoma, bleeding at the jose in site, perforation of the heart, and abnormal rhythms with catheter ablation. The patient voices u nderstanding and agrees to the plan of care. All questions were answered. We will continue to fariha w his course as he stabilizes. As discussed above regarding oral anticoagulation. He has recently h ad hematemesis and ideally oral anticoagulation will continue for 30 days post-CTI ablation and once he is stabilized here.
--- NOTE | 2018-04-02 16:11 | CON-2 ---
DATE OF CONSULTATION: 04/02/2018 CHIEF COMPLAINT: Abdominal pain. HISTORY OF PRESENT ILLNESS: The patient is a 53-year-old male, who presented to the emergency room in acute renal failure with hyperglycemia, severe dehydration and suspected GI bleed. The patient has since with medical therapies improved greatly and he has glycemic control as well as his kidney function has seen improvement as well trending down from 6.66-4.54. The patient has, however, been in atrial flutter since admission that has ranged from rate in the 90s-165. The patient states that he has never had any of these heart history before. However, he does note that he does feel his heart racing at times and beating out of his chest. Patient otherwise denies any other nausea, vomiting, diarrhea, fevers or chills overnight. No other complaints today. PAST MEDICAL HISTORY: Type 2 diabetes, hypertension, CKD stage 2, irritable bowel syndrome, and recurrent acute kidney failure. PAST SURGICAL HISTORY: I&D of his left hand for cellulitis and abscess. ALLERGIES: Suspected allergy to CEPHALEXIN and CORN. MEDICATIONS: 1. Aspirin 81 mg. 2. Clonidine 0.2 mg 2 tabs p.o. t.i.d. 3. Metformin 1000 mg p.o. b.i.d. with meals. 4. Amlodipine 5 mg p.o. daily. FAMILY HISTORY: Noncontributory to this case. SOCIAL HISTORY: The patient has a remote history of cocaine abuse. The patient does admit that he smoked a joint of marijuana approximately 1 week ago. The patient denies any tobacco or alcohol use. REVIEW OF SYSTEMS: Twelve-point review of systems was negative, otherwise mentioned in the HPI. PHYSICAL EXAMINATION: VITAL SIGNS: Blood pressure 116/77, temperature 98.0, pulse was 87, respirations 14, oxygen saturation was 97% on room air. GENERAL: The patient is resting comfortably in bed. HEAD: Normocephalic, atraumatic. NECK: Supple, no JVD, no thyromegaly, no carotid bruit. LUNGS: Clear to auscultation without any rhonchi or rales. CARDIOVASCULAR: Regular rate, irregular rhythm. No murmurs, no gallops, or rubs. ABDOMEN: With diffuse mild tenderness noted. No peritoneal signs. No guarding or rigidity. No rebound present. EXTREMITIES: Full range of motion in all joints. No edema is present. Peripheral pulses palpable throughout. SKIN: No skin rash noted. LABORATORY DATA: Hemoglobin 6.5, hematocrit 45.3, white blood cell count 25.3, platelet count 166. Sodium 136, potassium 3.7, chloride 101, bicarb 20, BUN 42 , creatinine 4.54, glucose was 232. IMAGING: None available at this time. Blood cultures have shown negative growth to specimens per date. ASSESSMENT AND PLAN: 1. Hyperglycemia associated with type 2 diabetes. The patient will continue on insulin drip in the IMCU with Accu-Cheks and insulin titration per the primary team. 2. Acute kidney failure. Nephrology was consulted. They recommended hydration via IV fluids as well as avoid nephrotoxic drugs and caution with potassium replacement. 3. Atrial flutter. The patient is currently rate controlled on a diltiazem drip at 15. However, we will be switching to 60 mg q.i.d., diltiazem orally to attempt to wean off IV medications. The patient's CHADS-VASc score was 2 points as was his HAS-BLED score was 2 points as well. We will consider adding a statin therapy because of his other risk factors. We will also consult Electrophysiology for further evaluation as the patient likely may need to have an ablation at some point in the future. Per primary team and presentation, patient has signs of an Upper GI bleed. Will hold on anticoagulation therapy at this time until cleared by GI. 4. Hypertension. We will continue his home meds including clonidine and amlodipine. 5. Anxiety and depression. Continue Zoloft. 6. Acute upper GI bleed. Patient's CBC is stable and not showing any acute bleed at this point. Gastroenterology has been consulted; however, management plan from Gastroenterology team is not known at this time. Disposition. Stable. We will make the treatment changes as above and continue to follow this patient in this case. This patient was seen and examined with Dr. Saud Chen the Cardiology attending. ASHLEY
[2018-04-02] MEDS: HumaLOG 300 UNITS/3 ML VIAL SC PRN (17:17)
--- NOTE | 2018-04-03 00:52 | CON ---
DATE OF CONSULTATION: 04/02/2018 REASON FOR CONSULTATION: Hematemesis. CONSULTING PHYSICIAN: Dr. Lynn Melton. HISTORY OF PRESENT ILLNESS: The patient is a 53-year-old male with past medical history of hypertens ion, irritable bowel syndrome, diabetes, chronic kidney disease stage 2, and recurrent admissions for acute kidney failure in the past presenting with complaints of nausea, vomiting, and hematemesis. T he patient states he was in his usual state of health until approximately 3 days ago when he had the acute onset of increased nausea and vomiting. Initially, he vomited approximately 5-6 discrete episo shakeel per day and has had a history of chronic nausea, vomiting in the past with hospitalizations in 2008 and 2009 for repeated episodes of nausea and vomiting. In the past, his vomiting episodes we re intermittent, meaning he had complete resolution of symptoms in between discrete episodes and thes e symptoms of nausea, vomiting were greatly increased with the administration of a hot shower. In an y case, over the last 2-3 days, he had increased nausea and vomiting as well as dyspepsia/GERD sympto ms that certainly were not resolving with or alleviated with the use of hot showers. He also reports that he ran out of his clonidine and had been unable to take the medication, at which point the naus ea and the vomiting was uncontrollable and prompted him to seek healthcare assistance. He was initia lly evaluated in the ER, [place] and ultimately transferred here for further evaluation. Upon entr y into the [facility] Emergency Room, he did have a vomiting episode of dark red colored pardeep sis x2 per patient, however, since his admission, he has had no further episodes of hematemesis. Kay xavier in the emergency room, he was noted to have severe hyponatremia, hypochloremia, and hyperkalemia w ith a significantly elevated creatinine to 6.6. He was ultimately diagnosed with hyperosmolar nonket otic acidosis and ultimately transferred to the intermediate care unit for further management of his condition. Currently, he states he continues to have mild nausea that is currently controlled with a ntiemetic medications, but no further episodes of emesis. He also denies any abdominal pain, dysphag ia, odynophagia, melena, or hematochezia; however, he does admit to left lower quadrant abdominal claudio n that is secondary to an unrepaired left inguinal hernia. Of note, during the course of our conversation, he stated that he had a prior diagnosis of Crohn's di jn, but upon chart review both within the records at [facility] and at the [facility], there was no evidence of this diagnosis and a colonoscopy performed in , which did not show any evidence of inflammatory bowel disease. REVIEW OF SYSTEMS: A 10-category review of systems was obtained with all responses negative except f or the pertinent positives as listed in the HPI. PAST MEDICAL HISTORY: As per HPI. PAST SURGICAL HISTORY: I&D of his left hand secondary to abscess formation. FAMILY HISTORY: Denies any GI malignancies. SOCIAL HISTORY: Endorses a remote history of crack cocaine abuse as well as chronic marijuana use wi th most recent use approximately 1-2 weeks ago. He denies any tobacco or alcohol use. OUTPATIENT MEDICATIONS: Reviewed. ALLERGIES: CEPHALEXIN and CORN. PHYSICAL EXAMINATION: VITAL SIGNS: Temperature 98.2, pulse 65, blood pressure 135/81, respiratory rate 18, satting 98% on room air. GENERAL: Patient is lying in bed in no acute distress. Alert and oriented x4. NECK: Supple. No JVD noted. CARDIOVASCULAR: Tachycardic rate, but regular rhythm. No discernible murmurs, gallops, or rubs. LUNGS: Clear to auscultation bilaterally with no discernible wheezes or rales. ABDOMEN: Normoactive bowel sounds, soft, mild tenderness to palpation in the midepigastric and left lower quadrant. EXTREMITIES: No cyanosis, clubbing, or edema. LABORATORY DATA: CBC with a white blood cell count of 25.3, hemoglobin 16.5, hematocrit 45.3, platel ets 166. Chemistry with a sodium of 136, potassium 3.7, chloride 101, CO2 of 20, BUN 42, creatinine 4.54, glucose 232. AST 15, ALT 13, alkaline phosphatase 87, total bilirubin 0.4, albumin 4.3. Beta hydroxybutyrate elevated at 1.0. IMAGING DATA: No current GI imaging is available for review. ASSESSMENT AND PLAN: The patient is a 53-year-old male with past medical history of diabetes, hypert ension, chronic kidney disease stage 2, irritable bowel syndrome, questionable Crohn's disease, and m arijuana abuse presenting with nausea, vomiting, and hematemesis consistent with a Sherry-Curran tear . Hematemesis: The patient is presenting with a chronic history of nausea, vomiting along with a histo ry of marijuana abuse with nausea and vomiting alleviated with the use of hot showers. This is consi stent with cannabinoid hyperemesis syndrome and could very well be generating his chronic nausea and vomiting. However, over the last 2-3 days, he had worsening of his nausea and vomiting to the point where he had the episode of hematemesis x2 after repeated episodes of retching. Currently with a nor mal H&H and with this episode of hematemesis after frequent episodes of nausea and vomiting is more c onsistent with a Sherry-Curran tear; however, the differential could include peptic ulcer disease, es ophagitis, gastritis, arteriovenous malformation, Dieulafoy lesion (less likely) and/or GI neoplasm ( much less likely). However, at this time, he is currently being treated for systemic acidosis relate d to his nonketotic state and requires further stabilization prior to successful endoscopic managemen t. RECOMMENDATIONS: 1. We would continue to treat hyperosmolar nonketotic state per insulin drip and close monitoring in the intermediate care unit. 2. We would continue with aggressive antiemetic control given the nausea and vomiting that precipita alyson most of the medical problems seen during this admission. 3. We would avoid all NSAIDs at this point in time or further anticoagulation given the recent episo de of hematemesis. 4. We would continue with PPI 40 mg b.i.d. in light of recent gastrointestinal bleeding. 5. If the patient's blood sugars creatinine, electrolytes are more stabilized by tomorrow, would the n consider possible upper endoscopy for evaluation of GI bleeding at that time. We will continue to follow. Please call with any questions.
[2018-04-03] MEDS: HYDROcodone/Acetaminophen 5/325 mg Tablet PO PRN ×2 (06:03→15:02)
[2018-04-03 07:15] LABS: #Lymphocytes 2.7 thou/uL (1.20-3.40); #Monocytes 0.7 thou/uL (0.11-0.59); #Neutrophils 8.3 thou/uL (1.40-6.50); %Basophils 0.2 % (0.0-1.0); %Eosinophils 0.4 % (0.0-10.0); %Monocytes 5.9 % (0.0-10.0); %Neutrophils 70.5 % (42.0-75.0); Hemoglobin 15.1 g/dL (14.0-18.0); Mean Corpuscular HGB CONC 34.5 g/dL (32.0-36.0); Mean Corpuscular Hemoglobin 31.4 pg (27.0-31.0); Mean Corpuscular Volume 90.9 fL (78.0-98.0); Mean Platelet Volume 10.1 fL (7.4-10.4); Platelet Count 157 thou/uL (130-400); RBC Distribution Width 11.9 % (11.5-14.5); Red Blood Cell (RBC) Count 4.82 mill/uL (4.70-6.10); White Blood Cell (WBC) Count 11.8 thou/uL (4.8-10.8)
[2018-04-03 07:31] LABS: Anion Gap 14 mmol/L (10-20); BUN (Urea Nitrogen) 41 mg/dL (8.4-25.7); Calc. Creatinine Clearance 41 mL/min (70-130); Calcium 8.9 mg/dL (7.8-10.44); Carbon Dioxide 23 mmol/L (22-29); Chloride 103 mmol/L (98-107); Estimated GFR-MDRD 28; Glucose 178 mg/dL (70-105); Potassium 4.8 mmol/L (3.5-5.1); Sodium 135 mmol/L (136-145)
[2018-04-03] MEDS: cloNIDine 0.2 MG TAB PO SCH ×3 (09:33→20:56)
[2018-04-03] MEDS: HumaLOG 300 UNITS/3 ML VIAL SC PRN ×3 (09:35→17:19)
[2018-04-03] MEDS: Pantoprazole 40 MG VIAL IVP SCH ×2 (09:35→20:56)
[2018-04-03] MEDS: Diltiazem HCl SR 60 mg Capsule PO SCH ×4 (09:35→20:56)
--- NOTE | 2018-04-03 09:47 | PRG ---
Patient Name: CAROL GIFFORD Date of service: 04/03/2018 Subjective: Patient was seen and examined at bedside and overnight events noted. Patient denies any shortness of breath or chest pain or palpitation. No history of nausea or vomiting or diarrhea or fever or chills or cramps. Objective: General: This is a 53-year-old male in no apparent distress. Vital signs: Temperature 97.8, pulse 50, respiratory rate 18, blood pressure 140/89. HEENT: Atraumatic, normocephalic. Oral mucosa is moist. Neck: Supple. Cardiovascular: S1 S2 heard. Rate and rhythm regular. Respiratory: Clear to auscultation. Gastrointestinal: Abdomen is soft. Musculoskeletal: No tenderness. No edema. Dermatologic: No skin rash. Neurologic: Alert and awake and oriented X3. No focal neurologic deficits. Moving all the extremities. Psychiatric: Mood and affect normal. LABORATORY DATA: Potassium 4.8, BUN 41, creatinine is 2.4. ASSESSMENT AND PLAN: 1. Acute kidney injury, getting better with hydration, continue current management. 2. Hemoconcentration - better 3. Edema. 4. Hypertension - stable. Renal function getting better, avoid nephrotoxins. We will follow. MTDD
--- NOTE | 2018-04-03 09:50 | PRG ---
DATE OF SERVICE: 04/03/2018 SUBJECTIVE: The patient is feeling much better today. He has had no further nausea, vomiting, no me kacie or hematochezia. He denies any abdominal pain. He is concerned about having had polyps in the past and has not had a colonoscopy in 9 years. OBJECTIVE: VITAL SIGNS: Temperature is 97.8, pulse 59, respiratory rate 17, blood pressure 140/89. CHEST: Clear. CARDIOVASCULAR: Regular rate and rhythm. ABDOMEN: Soft, nontender, without organomegaly or masses. LABORATORY DATA: White blood cell count 11.8, hemoglobin 15.1, hematocrit of 43.8. ASSESSMENT: 1. Hematemesis. 2. Chronic nausea and vomiting - may be secondary to cannabinoid hyperemesis syndrome. 3. Hyperglycemia. 4. Acute renal failure. RECOMMENDATIONS: 1. Proton-pump inhibitor. 2. EGD tomorrow. 3. Continue Protonix.
--- NOTE | 2018-04-03 12:02 | PRG ---
DATE OF SERVICE: 04/03/2018 OBJECTIVE: VITAL SIGNS: Mr. Little is afebrile, heart rate is in the 50s, blood pressure is 181/106 this morning. He is 94% on room air. Followup blood pressure at 11:00 was 113/77. LUNGS: Clear. HEART: Regular rhythm. ABDOMEN: Soft and nontender. EXTREMITIES: Without asymmetry. LABORATORY DATA: He is in sinus rhythm. He is tentatively for an ablation procedure tomorrow. White count is 11.8, hemoglobin 15.1, platelet s 157. Sodium 135, potassium 4.8, chloride 103, bicarb 23, BUN 41, creatinine 2.4. Creatinine was 6.6 on ad mission. IMPRESSION: 1. Hyperosmolar state 2. Severe intravascular volume depletion. 3. History of cocaine and marijuana use admitted to the nurses this morning. 4. Diabetes. 5. Hypertension. 6. History of depression. 7. Atrial flutter, tentatively scheduled for ablation procedure tomorrow. He is stable to move out of the telemetry unit. We will sign off.
--- NOTE | 2018-04-03 12:36 | PDOC.PN ---
- Subjective Encounter Start Date: 04/03/18 Encounter Start Time: 09:30 Patient seen and examined. No new complaints. No overnight events - Objective Resuscitation Status: Resuscitation Status FULL:Full Resuscitation MAR Reviewed: Yes Vital Signs & Weight: Vital Signs (12 hours) Temp Pulse Resp BP BP Pulse Ox 04/03/18 11:06 97.4 F L 52 L 17 113/77 94 L 04/03/18 09:33 181/106 H 04/03/18 08:00 97.8 F 59 L 17 95 04/03/18 07:21 97.8 F 59 L 17 140/89 95 04/03/18 03:54 97.9 F 55 L 16 121/84 97 Weight Admit Weight 173 lb Weight 179 lb I&O: 04/02/18 04/03/18 04/04/18 06:59 06:59 06:59 Intake Total 200 3389 120 Output Total 525 850 Balance -325 2539 120 Result Diagrams: 04/03/18 06:55 04/03/18 06:55 Additional Labs: Accuchecks 04/03/18 04/03/18 04/03/18 10:40 08:00 04:24 POC Glucose 259 H 177 H 148 H 04/03/18 04/02/18 04/02/18 00:25 20:28 17:00 POC Glucose 208 H 165 H 201 H 04/02/18 13:06 POC Glucose 175 H Radiology Reviewed by me: Yes (echo reviewed) EKG Reviewed by me: Yes ( ) Phys Exam - Physical Examination Constitutional: NAD HEENT: PERRLA, moist MMs, sclera anicteric Neck: no JVD, supple Respiratory: no wheezing, no rales, no rhonchi Cardiovascular: RRR, no significant murmur, no rub Gastrointestinal: soft, non-tender, no distention, positive bowel sounds Musculoskeletal: no edema, pulses present Neurological: non-focal, normal sensation, moves all 4 limbs Psychiatric: normal affect, A&O x 3 Skin: no rash, normal turgor Dx/Plan (1) ARF (acute renal failure) Status: Acute Comment: renal function improving (2) Diabetic hyperosmolar non-ketotic state Code(s): E11.00 - TYPE 2 DIAB W HYPROSM W/O NONKET HYPRGLY-HYPROS COMA ([facility]) Status: Resolved (3) GI bleed Code(s): K92.2 - GASTROINTESTINAL HEMORRHAGE, UNSPECIFIED Status: Acute (4) Hyperkalemia Code(s): E87.5 - HYPERKALEMIA Status: Resolved (5) Hyponatremia Code(s): E87.1 - HYPO-OSMOLALITY AND HYPONATREMIA Status: Resolved (6) Leucocytosis Code(s): D72.829 - ELEVATED WHITE BLOOD CELL COUNT, UNSPECIFIED Status: Acute Comment: improving (7) Metabolic acidosis Code(s): E87.2 - ACIDOSIS Status: Resolved (8) Nausea & vomiting Code(s): R11.2 - NAUSEA WITH VOMITING, UNSPECIFIED Status: Resolved (9) CKD (chronic kidney disease) stage 2, GFR 60-89 ml/min Code(s): N18.2 - CHRONIC KIDNEY DISEASE, STAGE 2 (MILD) Status: Chronic (10) DM2 (diabetes mellitus, type 2) Status: Chronic (11) Dyslipidemia Code(s): E78.5 - HYPERLIPIDEMIA, UNSPECIFIED Status: Chronic (12) Hypertension Code(s): I10 - ESSENTIAL (PRIMARY) HYPERTENSION Status: Chronic (13) Atrial flutter with rapid ventricular response Code(s): I48.92 - UNSPECIFIED ATRIAL FLUTTER Status: Acute Comment: now rate controlled, - Plan cont current plan of care * transfer to tele * tomorrow plan for SHRAVAN and possible ablation * pt is not able to get anticoagulation due to his recent GI bleeding * GI will consider EGD before discharge * medication reviewed as below * symptomatic treatment * renal function improving * spoke with nephrology about care * stable and continue to improve. Review of Systems - Review of Systems ENT: negative: Ear Pain, Ear Discharge, Nose Pain, Nose Discharge, Nose Congestion, Mouth Pain, Mouth Swelling, Throat Pain, Throat Swelling, Other Respiratory: negative: Cough, Dry, Shortness of Breath, Hemoptysis, SOB with Excertion, Pleuritic Pain, Sputum, Wheezing Cardiovascular: negative: chest pain, palpitations, orthopnea, paroxysmal nocturnal dyspnea, edema, light headedness, other Gastrointestinal: negative: Nausea, Vomiting, Abdominal Pain, Diarrhea, Constipation, Melena, Hematochezia, Other Genitourinary: negative: Dysuria, Frequency, Incontinence, Hematuria, Retention , Other Musculoskeletal: negative: Neck Pain, Shoulder Pain, Arm Pain, Back Pain, Hand Pain, Leg Pain, Foot Pain, Other Skin: negative: Rash, Lesions, Harrison, Bruising, Other - Medications/Allergies Allergies/Adverse Reactions: Allergies Allergy/AdvReac Type Severity Reaction Status Date / Time cephalexin [From Keflex] Allergy Mild Rash Verified 04/01/18 23:01 corn Allergy Mild Diarrhea Verified 12/18/15 12:39 Medications: Current Medications Acetaminophen (Tylenol) 650 mg PO Q4H PRN PRN Reason: Headache/Fever or Pain Hydrocodone Bitart/Acetaminophen ([place] 5/325) 1 tab PO Q4H PRN PRN Reason: Moderate Pain (4-6) Last Admin: 04/03/18 06:03 Dose: 1 tab Artificial Tears (Tears Renewed 15ml Bottle) 0 drop EA EYE PRN PRN PRN Reason: Dry Eyes Clonidine (Catapres) 0.1 mg PO Q4H PRN PRN Reason: Systolic BP > 180 Clonidine (Catapres) 0.4 mg PO TID EVANGELINA Last Admin: 04/03/18 09:33 Dose: 0.4 mg Dextrose/Water (Dextrose 50%) 25 gm SLOW IVP PRN PRN PRN Reason: Hypoglycemia Diltiazem HCl (Cardizem Sr) 60 mg PO QID EVANGELINA Last Admin: 04/03/18 09:35 Dose: 60 mg Glucagon (Glucagon) 1 mg IM PRN PRN PRN Reason: Hypoglycemia Guaifenesin (Robitussin Sf) 200 mg PO Q4H PRN PRN Reason: Cough Diltiazem HCl 125 mg/ Sodium (Chloride) 125 mls @ 0 mls/hr IVPB INF [facility]; Protocol Last Admin: 04/02/18 09:18 Dose: 125 mls Dextrose/Water (D5w) 1,000 mls @ 0 mls/hr IV .Q0M PRN PRN Reason: Hypoglycemia Insulin Human Lispro (Humalog) 0 units SC .MODERATE SLIDING SC PRN PRN Reason: Moderate Correctional Scale Last Admin: 04/03/18 11:16 Dose: 6 unit Insulin Human Lispro (Humalog) 0 units SC .BEDTIME SLIDING SC PRN PRN Reason: Bedtime Correctional Scale Labetalol HCl (Normodyne) 20 mg SLOW IVP Q4H PRN PRN Reason: Systolic BP > 180 Loperamide HCl (Imodium) 2 mg PO PRN PRN PRN Reason: Diarrhea/Loose Stools Loratadine (Claritin) 10 mg PO DAILYPRN PRN PRN Reason: Sinus Symptoms Magnesium Hydroxide (Milk Of Magnesium) 30 ml PO DAILYPRN PRN PRN Reason: Constipation Mineral Oil/White Petrolatum (Eucerin Cream) 0 gm TOP BIDPRN PRN PRN Reason: Dry Skin Nitroglycerin (Nitrostat) 0.4 mg SL Q5MIN PRN PRN Reason: Chest Pain Ondansetron HCl (Zofran Odt) 4 mg PO Q6H PRN PRN Reason: Nausea/Vomiting Ondansetron HCl (Zofran) 4 mg IVP Q6H PRN PRN Reason: Nausea/Vomiting Last Admin: 04/02/18 16:42 Dose: 4 mg Pantoprazole Sodium (Protonix) 40 mg IVP BID EVANGELINA Last Admin: 04/03/18 09:35 Dose: 40 mg Phenol (Chloraseptic [place] 180 Ml Bot) 0 ml PO PRN PRN PRN Reason: Sore Throat Senna (Senokot) 2 tab PO HSPRN PRN PRN Reason: Constipation Sodium Chloride ([place] Nasal Brilliant 0.65%) 0 ml EA NARE QIDPRN PRN PRN Reason: Nasal Congestion Zolpidem Tartrate (Ambien) 5 mg PO HSPRN PRN PRN Reason: Insomnia
--- NOTE | 2018-04-03 13:18 | PDOC.CTH ---
Cardiology Progress Note - Subjective Much better today. Converted to SR last pm. Scheduled for ablation tomorrow - Objective Vital Signs Temp Pulse Resp BP BP Pulse Ox 04/03/18 11:06 97.4 F L 52 L 17 113/77 94 L 04/03/18 09:33 181/106 H 04/03/18 08:00 97.8 F 59 L 17 95 04/03/18 07:21 97.8 F 59 L 17 140/89 95 04/03/18 03:54 97.9 F 55 L 16 121/84 97 Admit Weight 173 lb Weight 179 lb 04/02/18 04/03/18 04/04/18 06:59 06:59 06:59 Intake Total 200 3389 120 Output Total 525 850 Balance -325 2539 120 - Physical Examination General/Neuro: alert & oriented x3, NAD Neck: carotid US brisk, no JVD present Lungs: unlabored respirations Heart: RRR Abdomen: no HSM, NT/ND Extremities: + femoral B - Labs Result Diagrams: 04/03/18 06:55 04/03/18 06:55 Troponin/CKMB CK-MB (CK-2) 5.7 ng/mL (0-6.6) 04/01/18 21:07 Troponin I 0.149 ng/mL (< 0.028) H 04/01/18 21:07 - Assessment/Plan 1. Atrial flutter hyperosmolar state Pt converted to SR. Plan on EP study tomorrow. Gien recent conversion, no need for SHRAVAN. Creatinine continues to improve.
--- NOTE | 2018-04-03 17:08 | PDOC.CTH ---
<Kourtney Vasquez - Last Filed: 04/03/18 17:06> Cardiology Progress Note - Subjective EP progress note: Patient seen and evaluated. No new cardiac concerns or complaints today. Denies heart racing, palpitations, chest pain/pressure, dizziness, or passing out. No stroke like symptoms. Feeling much better today. no nausea or vomiting. - Objective Vital Signs Temp Pulse Resp BP BP Pulse Ox 04/03/18 15:18 97.8 F 58 L 16 133/85 94 L 04/03/18 14:57 133/85 04/03/18 11:06 97.4 F L 52 L 17 113/77 94 L 04/03/18 09:33 181/106 H 04/03/18 08:00 97.8 F 59 L 17 95 04/03/18 07:21 97.8 F 59 L 17 140/89 95 Admit Weight 173 lb Weight 179 lb 04/02/18 04/03/18 04/04/18 06:59 06:59 06:59 Intake Total 200 3389 120 Output Total 525 850 Balance -325 2539 120 - Physical Examination General/Neuro: alert & oriented x3, NAD Neck: carotid US brisk, no JVD present Lungs: unlabored respirations Heart: PMI normal, RRR Abdomen: no HSM, NT/ND, soft - Telemetry Telemetry Rhythm: NSR - Labs Result Diagrams: 04/03/18 06:55 04/03/18 06:55 Troponin/CKMB CK-MB (CK-2) 5.7 ng/mL (0-6.6) 04/01/18 21:07 Troponin I 0.149 ng/mL (< 0.028) H 04/01/18 21:07 - Assessment/Plan 1. Newly diagnosed CTI dependent atrial flutter, converted to SR overnight. Off diltiazem gtt. Plan for RFA tomorrow at 1400 2. HHNK, anion gap closed. resolving 3. Hematemesis NPO after MN, No SHRAVAN before ablation. <RamaZacarias - Last Filed: 04/03/18 19:53> Cardiology Progress Note - Objective Vital Signs Temp Pulse Resp BP BP Pulse Ox 04/03/18 19:50 98.0 F 52 L 16 121/84 100 04/03/18 15:18 97.8 F 58 L 16 133/85 94 L 04/03/18 14:57 133/85 04/03/18 11:06 97.4 F L 52 L 17 113/77 94 L 04/03/18 09:33 181/106 H 04/03/18 08:00 97.8 F 59 L 17 95 Admit Weight 173 lb Weight 179 lb 04/02/18 04/03/18 04/04/18 06:59 06:59 06:59 Intake Total 200 3389 470 Output Total 525 850 400 Balance -325 2539 70 - Labs Result Diagrams: 04/03/18 06:55 04/03/18 06:55 Troponin/CKMB CK-MB (CK-2) 5.7 ng/mL (0-6.6) 04/01/18 21:07 Troponin I 0.149 ng/mL (< 0.028) H 04/01/18 21:07 Attending Addendum - Attending Addendum Date/Time: 04/03/181952 I personally evaluated the patient and discussed the management with Ms Vasquez. I agree with the History, Examination, Assessment and Plan documented above with any addition or exceptions noted below.
--- NOTE | 2018-04-03 17:51 | PRG ---
DATE OF SERVICE: 04/03/2018 REFERRING PHYSICIAN: Dr. Chen SUBJECTIVE: Mr. Little seems to be doing fair today with no new symptoms. He actually converted back to sinus rhythm. OBJECTIVE DATA: VITAL SIGNS: Blood pressure is 113/77, heart rate 52, respiration 17, temperature 97.4 degrees Fahre nheit. GENERAL: Alert and oriented man, in no apparent distress. NECK: Supple. Jugular veins not distended. CHEST: Coarse without crackles. CARDIOVASCULAR: Heart sounds are regular to rate and rhythm. No murmur or gallop. ABDOMEN: Benign. Bowel sounds positive. EXTREMITIES: Lower extremities without edema, clubbing or cyanosis. LABORATORY DATA: BUN 41, creatinine 2.4. Sodium 135, potassium 4.8. White count 11.8, hemoglobin 1 5.1, platelet count 157. HISTORY OF PRESENT ILLNESS: Mr. Little is a pleasant 53-year-old male with prior history of diabetes, hypertension, chronic kidney disease, who presented with hyperosmolar coma and was found to be with a trial flutter with RVR, atrial flutter very typical isthmus-dependent morphology. Now, he is back to sinus rhythm. He also had some hematemesis for which anticoagulation is on hold. Thought that yesterday, the gentleman likely would benefit from cavotricuspid isthmus ablation future atrial flutter episode even though cardioversion noticed today. At this point, his overall st atus including his diabetes control is improving. Chloride levels are back to normal. CO2 levels als o. He is feeling better, I think it is reasonable concern of the ablation tomorrow. Hence he has co nverted spontaneously; I will hold off on SHRAVAN.
[2018-04-04] MEDS: Ondansetron HCl/PF 4 MG/2 ML Vial IVP PRN ×2 (05:27→20:57)
[2018-04-04] MEDS: HYDROcodone/Acetaminophen 5/325 mg Tablet PO PRN ×2 (05:27→20:58)
[2018-04-04 05:39] LABS: #Basophils 0.1 thou/uL (0.0-0.2); #Eosinphils 0.1 thou/uL (0.0-0.7); #Lymphocytes 3.5 thou/uL (1.20-3.40); #Monocytes 0.7 thou/uL (0.11-0.59); #Neutrophils 6.1 thou/uL (1.40-6.50); %Eosinophils 0.6 % (0.0-10.0); %Lymphocytes 33.7 % (21.0-51.0); %Monocytes 6.8 % (0.0-10.0); %Neutrophils 57.9 % (42.0-75.0); Hemoglobin 15.9 g/dL (14.0-18.0); Mean Corpuscular HGB CONC 34.8 g/dL (32.0-36.0); Mean Corpuscular Hemoglobin 31.6 pg (27.0-31.0); Mean Corpuscular Volume 90.9 fL (78.0-98.0); Mean Platelet Volume 9.9 fL (7.4-10.4); Platelet Count 171 thou/uL (130-400); RBC Distribution Width 11.6 % (11.5-14.5); Red Blood Cell (RBC) Count 5.02 mill/uL (4.70-6.10); White Blood Cell (WBC) Count 10.5 thou/uL (4.8-10.8)
--- NOTE | 2018-04-04 05:54 | PDOC.CTH ---
Cardiology Progress Note - Subjective No changes noted overnight - Objective Vital Signs Temp Pulse Resp BP BP Pulse Ox 04/04/18 03:53 97.4 F L 42 L 18 141/96 H 100 04/04/18 00:00 97.7 F 44 L 20 142/83 H 100 04/03/18 20:56 134/71 04/03/18 20:00 98.0 F 52 L 16 100 04/03/18 19:50 98.0 F 52 L 16 121/84 100 Admit Weight 173 lb Weight 180 lb 9 oz 04/02/18 04/03/18 04/04/18 06:59 06:59 06:59 Intake Total 200 3389 1070 Output Total 525 850 825 Balance -325 2539 245 - Physical Examination General/Neuro: alert & oriented x3, NAD Neck: no JVD present Lungs: CTA, unlabored respirations Heart: PMI normal, RRR Abdomen: NT/ND, soft Extremities: + femoral B - Labs Result Diagrams: 04/04/18 05:30 04/03/18 06:55 Troponin/CKMB CK-MB (CK-2) 5.7 ng/mL (0-6.6) 04/01/18 21:07 Troponin I 0.149 ng/mL (< 0.028) H 04/01/18 21:07 - Assessment/Plan 1. Atrial flutter hyperosmolar state Main issue from a CV standpoint is aflutter. Will be addressed today by EP. No further recommendations from my standpoint. Please re-consult if needed.
[2018-04-04 05:57] LABS: ALT (SGPT) 11 U/L (8-55); AST (SGOT) 10 U/L (5-34); Albumin 4.3 g/dL (3.5-5.0); Alkaline Phosphatase 81 U/L (40-150); Anion Gap 15 mmol/L (10-20); BUN (Urea Nitrogen) 39 mg/dL (8.4-25.7); Bilirubin, Total 0.9 mg/dL (0.2-1.2); Calc. Creatinine Clearance 57 mL/min (70-130); Calcium 9.4 mg/dL (7.8-10.44); Carbon Dioxide 24 mmol/L (22-29); Chloride 102 mmol/L (98-107); Estimated GFR-MDRD 42; Globulin 2.9 g/dL (2.4-3.5); Glucose 149 mg/dL (70-105); Protein, Total 7.2 g/dL (6.0-8.3); Sodium 137 mmol/L (136-145)
--- NOTE | 2018-04-04 10:19 | PRG ---
DATE OF SERVICE: 04/04/2018 SUBJECTIVE: Patient was seen and examined at bedside and overnight events noted. Patient denies any shortness of breath or chest pain or palpitation. No history of nausea or vomiting or diarrhea or f ever or chills or cramps. OBJECTIVE: GENERAL: This is a well-built white male in no apparent distress. VITAL SIGNS: Temperature 97.8, pulse 55, respiratory rate 18, blood pressure 146/83. HEENT: Atraumatic, normocephalic. Oral mucosa is moist. NECK: Supple. CARDIOVASCULAR: S1, S2 heard. Rate and rhythm regular. RESPIRATORY: Clear to auscultation. GASTROINTESTINAL: Abdomen is soft. MUSCULOSKELETAL: No tenderness. No edema. DERMATOLOGIC: No skin rash. NEUROLOGIC: Alert and awake and oriented x3. No focal neurologic deficits. Moving all the extremiti es. PSYCHIATRIC: Mood and affect normal. LABORATORY DATA: Potassium 4.0, BUN 39, creatinine is 1.7. Baseline creatinine is around 1.2. ASSESSMENT AND PLAN: 1. Acute kidney injury on chronic kidney stage 3, GFR of 42, getting better. Continue hydration. C ontinue current management. 2. Hypertension, stable. 3. Edema. 4. Anemia. Overall renal function is stable and better. I will follow.
--- NOTE | 2018-04-04 10:30 | PDOC.PN ---
- Subjective Encounter Start Date: 04/04/18 Encounter Start Time: 09:50 Patient seen and examined. No new complaints. No overnight events - Objective Resuscitation Status: Resuscitation Status FULL:Full Resuscitation MAR Reviewed: Yes Vital Signs & Weight: Vital Signs (12 hours) Temp Pulse Resp BP Pulse Ox 04/04/18 07:34 97.8 F 55 L 17 146/83 H 98 04/04/18 03:53 97.4 F L 42 L 18 141/96 H 100 04/04/18 00:00 97.7 F 44 L 20 142/83 H 100 Weight Admit Weight 173 lb Weight 180 lb 9 oz I&O: 04/03/18 04/04/18 04/05/18 06:59 06:59 06:59 Intake Total 3389 1070 Output Total 850 825 Balance 2539 245 Result Diagrams: 04/04/18 05:30 04/04/18 05:30 Additional Labs: Accuchecks 04/04/18 04/04/18 04/04/18 08:05 05:34 00:16 POC Glucose 138 H 142 H 185 H 04/03/18 04/03/18 04/03/18 20:29 16:47 10:40 POC Glucose 136 H 150 H 259 H EKG Reviewed by me: Yes (nsr) Phys Exam - Physical Examination Constitutional: NAD HEENT: PERRLA, moist MMs, sclera anicteric Neck: no JVD, supple Respiratory: no wheezing, no rales, no rhonchi Cardiovascular: RRR, no significant murmur, no rub Gastrointestinal: soft, non-tender, no distention, positive bowel sounds Musculoskeletal: no edema, pulses present Neurological: non-focal, normal sensation, moves all 4 limbs Psychiatric: normal affect, A&O x 3 Skin: no rash, normal turgor Dx/Plan (1) ARF (acute renal failure) Status: Acute Comment: renal function improving (2) Diabetic hyperosmolar non-ketotic state Code(s): E11.00 - TYPE 2 DIAB W HYPROSM W/O NONKET HYPRGLY-HYPROS COMA ([facility]) Status: Resolved (3) GI bleed Code(s): K92.2 - GASTROINTESTINAL HEMORRHAGE, UNSPECIFIED Status: Acute (4) Hyperkalemia Code(s): E87.5 - HYPERKALEMIA Status: Resolved (5) Hyponatremia Code(s): E87.1 - HYPO-OSMOLALITY AND HYPONATREMIA Status: Resolved (6) Leucocytosis Code(s): D72.829 - ELEVATED WHITE BLOOD CELL COUNT, UNSPECIFIED Status: Acute Comment: improving (7) Metabolic acidosis Code(s): E87.2 - ACIDOSIS Status: Resolved (8) Nausea & vomiting Code(s): R11.2 - NAUSEA WITH VOMITING, UNSPECIFIED Status: Resolved (9) CKD (chronic kidney disease) stage 2, GFR 60-89 ml/min Code(s): N18.2 - CHRONIC KIDNEY DISEASE, STAGE 2 (MILD) Status: Chronic (10) DM2 (diabetes mellitus, type 2) Status: Chronic (11) Dyslipidemia Code(s): E78.5 - HYPERLIPIDEMIA, UNSPECIFIED Status: Chronic (12) Hypertension Code(s): I10 - ESSENTIAL (PRIMARY) HYPERTENSION Status: Chronic (13) Atrial flutter with rapid ventricular response Code(s): I48.92 - UNSPECIFIED ATRIAL FLUTTER Status: Acute Comment: now rate controlled, and now nsr - Plan cont current plan of care * pt is planned for RFA later today for atrial flutter * medication reviewed as below * symptomatic treatment * renal function improving * DC IVF * plan for EGD tomorrow?? * await tele bed. * continue IV protonix Review of Systems - Review of Systems Eyes: negative: Pain, Vision Change, Conjunctivae Inflammation, Eyelid Inflammation, Redness, Other ENT: negative: Ear Pain, Ear Discharge, Nose Pain, Nose Discharge, Nose Congestion, Mouth Pain, Mouth Swelling, Throat Pain, Throat Swelling, Other Respiratory: negative: Cough, Dry, Shortness of Breath, Hemoptysis, SOB with Excertion, Pleuritic Pain, Sputum, Wheezing Cardiovascular: negative: chest pain, palpitations, orthopnea, paroxysmal nocturnal dyspnea, edema, light headedness, other Gastrointestinal: negative: Nausea, Vomiting, Abdominal Pain, Diarrhea, Constipation, Melena, Hematochezia, Other Genitourinary: negative: Dysuria, Frequency, Incontinence, Hematuria, Retention , Other Musculoskeletal: negative: Neck Pain, Shoulder Pain, Arm Pain, Back Pain, Hand Pain, Leg Pain, Foot Pain, Other Skin: negative: Rash, Lesions, Harrison, Bruising, Other - Medications/Allergies Allergies/Adverse Reactions: Allergies Allergy/AdvReac Type Severity Reaction Status Date / Time cephalexin [From Keflex] Allergy Mild Rash Verified 04/01/18 23:01 corn Allergy Mild Diarrhea Verified 12/18/15 12:39 Medications: Current Medications Acetaminophen (Tylenol) 650 mg PO Q4H PRN PRN Reason: Headache/Fever or Pain Hydrocodone Bitart/Acetaminophen ([place] 5/325) 1 tab PO Q4H PRN PRN Reason: Moderate Pain (4-6) Last Admin: 04/04/18 05:27 Dose: 1 tab Artificial Tears (Tears Renewed 15ml Bottle) 0 drop EA EYE PRN PRN PRN Reason: Dry Eyes Clonidine (Catapres) 0.1 mg PO Q4H PRN PRN Reason: Systolic BP > 180 Clonidine (Catapres) 0.4 mg PO TID EVANGELINA Last Admin: 04/03/18 20:56 Dose: 0.4 mg Dextrose/Water (Dextrose 50%) 25 gm SLOW IVP PRN PRN PRN Reason: Hypoglycemia Glucagon (Glucagon) 1 mg IM PRN PRN PRN Reason: Hypoglycemia Guaifenesin (Robitussin Sf) 200 mg PO Q4H PRN PRN Reason: Cough Diltiazem HCl 125 mg/ Sodium (Chloride) 125 mls @ 0 mls/hr IVPB INF [facility]; Protocol Last Admin: 04/02/18 09:18 Dose: 125 mls Dextrose/Water (D5w) 1,000 mls @ 0 mls/hr IV .Q0M PRN PRN Reason: Hypoglycemia Insulin Human Lispro (Humalog) 0 units SC .MODERATE SLIDING SC PRN PRN Reason: Moderate Correctional Scale Last Admin: 04/03/18 17:19 Dose: 2 unit Insulin Human Lispro (Humalog) 0 units SC .BEDTIME SLIDING SC PRN PRN Reason: Bedtime Correctional Scale Labetalol HCl (Normodyne) 20 mg SLOW IVP Q4H PRN PRN Reason: Systolic BP > 180 Loperamide HCl (Imodium) 2 mg PO PRN PRN PRN Reason: Diarrhea/Loose Stools Loratadine (Claritin) 10 mg PO DAILYPRN PRN PRN Reason: Sinus Symptoms Magnesium Hydroxide (Milk Of Magnesium) 30 ml PO DAILYPRN PRN PRN Reason: Constipation Mineral Oil/White Petrolatum (Eucerin Cream) 0 gm TOP BIDPRN PRN PRN Reason: Dry Skin Nitroglycerin (Nitrostat) 0.4 mg SL Q5MIN PRN PRN Reason: Chest Pain Ondansetron HCl (Zofran Odt) 4 mg PO Q6H PRN PRN Reason: Nausea/Vomiting Ondansetron HCl (Zofran) 4 mg IVP Q6H PRN PRN Reason: Nausea/Vomiting Last Admin: 04/04/18 05:27 Dose: 4 mg Pantoprazole Sodium (Protonix) 40 mg IVP BID EVANGELINA Last Admin: 04/03/18 20:56 Dose: 40 mg Phenol (Chloraseptic [place] 180 Ml Bot) 0 ml PO PRN PRN PRN Reason: Sore Throat Senna (Senokot) 2 tab PO HSPRN PRN PRN Reason: Constipation Sodium Chloride ([place] Nasal [place] 0.65%) 0 ml EA NARE QIDPRN PRN PRN Reason: Nasal Congestion Zolpidem Tartrate (Ambien) 5 mg PO HSPRN PRN PRN Reason: Insomnia
[2018-04-04] MEDS ORDERED: PROPOFOL 200 MG/20 ML VIAL ONE (10:58)
[2018-04-04] MEDS ORDERED: Labetalol 100 MG/20 ML MDV ONE (10:58)
[2018-04-04] MEDS ORDERED: DOPamine 400 MG/D5W 250 ML 250 ML ONE (12:38)
[2018-04-04] MEDS ORDERED: Heparin 10,000 UNITS/1 ML VIAL ONE (12:40)
--- NOTE | 2018-04-04 14:11 | PRG ---
DATE OF SERVICE: 04/04/2018 SUBJECTIVE: The patient is eating well. He has had no further nausea, vomiting. He has had no nimco k stools, no abdominal pain. OBJECTIVE: VITAL SIGNS: Temperature 98.2, pulse 87, respiratory rate 21, blood pressure 164/93. HEENT: Unremarkable. CHEST: Clear. CARDIOVASCULAR: Regular rate and rhythm. ABDOMEN: Soft, nontender, without organomegaly or masses. EXTREMITIES: Normal. LABORATORY DATA: Shows a white blood cell count of 10.5, hemoglobin of 59. Chemistries show a BUN 3 9, creatinine 1.73. ASSESSMENT: 1. Hematemesis - no further episodes of vomiting. 2. Chronic nausea and vomiting. 3. Hyperglycemia. 4. Acute renal failure. 5. Atrial flutter - converted to normal sinus rhythm. RECOMMENDATIONS: 1. The patient is to have an ablation done today. 2. Continue proton pump inhibitor. 3. EGD prior to discharge. 4. Dr. Ezra medrano.
[2018-04-04] MEDS: cloNIDine 0.2 MG TAB PO SCH ×3 (15:30→20:57)
[2018-04-04] MEDS: Pantoprazole 40 MG VIAL IVP SCH ×2 (15:31→20:57)
[2018-04-04] MEDS ORDERED: Fentanyl 100 MCG/2 ML VIAL ONE ×3 (16:14→18:53)
[2018-04-04] MEDS ORDERED: PROPOFOL 20 ML ONE ×2 (17:26→18:01)
[2018-04-04] MEDS ORDERED: Midazolam HCl 2 mg/2 ml Vial ONE (17:26)
[2018-04-04] MEDS ORDERED: hydrALAZINE 20 MG/ML VIAL ONE (18:08)
[2018-04-04] MEDS ORDERED: cloNIDine 0.1 MG TAB ONE ×2 (19:18)
--- NOTE | 2018-04-04 22:43 | OP ---
DATE OF SERVICE: 04/04/2018 ELECTROPHYSIOLOGY STUDY AND RADIOFREQUENCY ABLATION REPORT REFERRING PHYSICIAN: Saud Chen M.D. REASON FOR PROCEDURE: Mr. Little is a 53-year-old man who presented with poorly controlled diabetes/__ ___ and atrial flutter, which appears to be typical isthmus-dependent in morphology. He eventually h ad a termination. He is undergoing a cavotricuspid ablation due to eliminate the CTI circuit likely is possible his atrial flutter. PROCEDURE: The patient received deep sedation by Anesthesia specialist. After adequate sedation ach ieved, the right femoral venous area was prepped, draped and anesthetized using subcutaneous lidocain e and under ultrasound guidance, the right femoral vein was accessed x2 and two [id number] short sheath was introduced. Through this, a decapolar catheter was advanced to the CS and a ThermoCool SFST cat heter was advanced to the right atrium. A 3D map of the right atrium was performed, which was with C S proximal pacing. The transisthmus time is established. A cavotricuspid isthmus ablation was perfo rmed prolonging the transisthmus line from the original 40 milliseconds to 130 milliseconds. Isthmus block was demonstrated by longest transisthmus time adjacent to the line. Following this, a dopamin e was administered and the transisthmus block was again reevaluated. The total ablation performed, 8 minutes and 59 seconds, 15 lesions were delivered. An average wattage of 40 dahl performed. ADDITIONAL MEASUREMENTS: Baseline cycle in sinus rhythm at 988 milliseconds, MS 116, QRS 46 millisec onds, QT 430 milliseconds, milliseconds, HV 71 milliseconds. AV Wenckebach 320 milliseconds. Burst atrial pacing did not induce atrial flutter. CONCLUSION: 1. Successful cavotricuspid isthmus ablation. 2. Hemodynamically stable the patient throughout. No significant change in the cardiac silhouette b y the end of the case. PLAN: Routine followup.
[2018-04-05 04:36] LABS: Anion Gap 19 mmol/L (10-20); BUN (Urea Nitrogen) 26 mg/dL (8.4-25.7); Calc. Creatinine Clearance 80 mL/min (70-130); Calcium 9.2 mg/dL (7.8-10.44); Carbon Dioxide 19 mmol/L (22-29); Chloride 104 mmol/L (98-107); Estimated GFR-MDRD 61; Glucose 110 mg/dL (70-105); Potassium 4.3 mmol/L (3.5-5.1); Sodium 138 mmol/L (136-145)
[2018-04-05] MEDS: cloNIDine 0.2 MG TAB PO SCH ×3 (07:54→20:39)
[2018-04-05] MEDS: Pantoprazole 40 MG VIAL IVP SCH ×2 (07:55→20:40)
[2018-04-05] MEDS: Ondansetron HCl/PF 4 MG/2 ML Vial IVP PRN (07:55)
--- NOTE | 2018-04-05 10:56 | PRG ---
DATE OF SERVICE: 04/05/2018 SUBJECTIVE: Ms. Little seems to be doing well one day after his CTI ablation. OBJECTIVE: VITAL SIGNS: Blood pressure 182/112, heart rate 70, respiration is 18, temperature 97.6 degrees Fahr enheit. GENERAL: Alert and oriented man in no apparent distress. NECK: Supple. Jugular veins not distended. CHEST: Coarse without crackles. CARDIOVASCULAR: Heart sounds are regular to rate and rhythm. No murmur or gallop. ABDOMEN: Benign. Bowel sounds positive. EXTREMITIES: Lower extremities without edema, clubbing or cyanosis. Pulses are adequate. NEUROLOGIC: Patient is nonfocal. MUSCULOSKELETAL: No joint swelling or deformities. SKIN: Without rash. Right femoral venous catheter insertion sites are without reaction. LABORATORY DATA: Sodium 138, potassium 4.3, BUN is 26, creatinine 1.24, which is marked improvement from baseline 6.6 on admission. The white blood cell count is not checked today. The blood sugar le vels are 140 to 170 to 110 range. DATABASE: Telemetry strips reviewed reveals sinus rhythm. No significant arrhythmias. ASSESSMENT AND PLAN: Mr. Little is a pleasant 53-year-old man who presented with sustained atrial flut ter in the setting of high proximal diabetic coma. He has markedly improved and eventually underwent a cavotricuspid isthmus ablation yesterday. He maintained sinus rhythm ever since, no obvious compl ication noted at this point, I will continue monitoring him. His heart rates were borderline low. A t this point I would refrain from AV ena blocking agents. I would add Norvasc due to the extreme h ypertension which could be further adjusted. RE inhibitors could be a consideration if renal functi on normalizes. On the other hand in the setting of acute renal function I will not initiate that jus t yet. He also had some hematemesis and therefore I would not initiate anticoagulation at this point. Monit or for recurrence of arrhythmia. Six week followup in our office requested. I will sign off. Thank you for allowing me to participate in the care of your patient.
[2018-04-05 12:31] VITALS: BMI 24.7
[2018-04-05] MEDS: HYDROcodone/Acetaminophen 5/325 mg Tablet PO PRN (12:33)
[2018-04-05] MEDS: HumaLOG 300 UNITS/3 ML VIAL SC PRN (12:34)
--- NOTE | 2018-04-05 14:59 | EKG ---
Test Reason : Blood Pressure : / mmHG Vent. Rate : 155 BPM Atrial Rate : 155 BPM P-R Int : 120 ms QRS Dur : 138 ms QT Int : 312 ms P-R-T Axes : 000 032 240 degrees QTc Int : 501 ms atrial flutter with 2:1 block Left ventricular hypertrophy with QRS widening and repolarization abnormality Abnormal ECG When compared with ECG of 27-NOV-2017 03:33, Vent. rate has increased BY 90 BPM QRS duration has increased ST now depressed in Anterolateral leads Inverted T waves have replaced nonspecific T wave abnormality in Inferior leads T wave inversion more evident in Lateral leads Confirmed by STEVE TERAN, JAMES ([id number]) on 04/05/2018 2:59:17 PM Referred By: MAICOL Confirmed By:JAMES WILSON MD
--- NOTE | 2018-04-05 14:59 | EKG ---
Test Reason : Blood Pressure : / mmHG Vent. Rate : 128 BPM Atrial Rate : 308 BPM P-R Int : 000 ms QRS Dur : 120 ms QT Int : 344 ms P-R-T Axes : 000 047 258 degrees QTc Int : 502 ms Atrial flutter with variable A-V block Inferior infarct , age undetermined Abnormal ECG When compared with ECG of 01-APR-2018 22:33, (Unconfirmed) Atrial flutter has replaced Sinus rhythm QRS duration has decreased ST no longer depressed in Anterolateral leads Confirmed by JAMES WILSON MD ([id number]) on 04/05/2018 2:59:27 PM Referred By: TOREY Confirmed By:JAMES WILSON MD
--- NOTE | 2018-04-05 15:17 | EKG ---
Test Reason : STAT Blood Pressure : / mmHG Vent. Rate : 065 BPM Atrial Rate : 065 BPM P-R Int : 150 ms QRS Dur : 100 ms QT Int : 454 ms P-R-T Axes : 043 050 015 degrees QTc Int : 472 ms Normal sinus rhythm Possible Left atrial enlargement Borderline ECG Confirmed by JAMES WILSON MD ([id number]) on 04/05/2018 3:16:48 PM Referred By: TOREY Confirmed By:JAMES WILSON MD
--- NOTE | 2018-04-05 15:17 | EKG ---
Test Reason : Blood Pressure : / mmHG Vent. Rate : 071 BPM Atrial Rate : 071 BPM P-R Int : 162 ms QRS Dur : 110 ms QT Int : 410 ms P-R-T Axes : 070 060 018 degrees QTc Int : 445 ms Normal sinus rhythm Cannot rule out Inferior infarct , age undetermined Abnormal ECG Confirmed by STEVE TERAN, JAMES ([id number]) on 04/05/2018 3:17:24 PM Referred By: [facility] Confirmed By:JAMES WILSON MD
--- NOTE | 2018-04-05 17:53 | PRG ---
DATE OF SERVICE: 04/05/2018 SUBJECTIVE: Mr. Little has had no further bleeding. He had an ablation yesterday. His heart rate has been controlled today. OBJECTIVE: VITAL SIGNS: Pulse is about 65-70, blood pressure 185/105, temperature 97.7. ABDOMEN: Nontender. NEUROLOGIC: He is alert and oriented. Hemoglobin is 15.5. ASSESSMENT: Status post ablation for atrial fibrillation. As he will need chronic anticoagulation, we will proceed with EGD tomorrow to rule out any significant upper gastrointestinal lesions that may have causing the hematemesis or this may have just been an episode of Sherry-Curran tear. He is on a PPI and has had no bleeding since admission. If that is fine tomorrow, he can go home on anticoagu lation. PLAN: EGD tomorrow. Risks, benefits, and possible complications of the procedure have been discusse d with the patient and he has been placed on the schedule, and he understands the indications and wyatt son to proceed with this and wishes to this.
--- NOTE | 2018-04-05 18:33 | PRG ---
DATE OF SERVICE: 04/05/2018 NEPHROLOGY PROGRESS NOTE SUBJECTIVE: Patient was seen and examined at bedside and overnight events noted. Patient denies any shortness of breath or chest pain or palpitation. No history of nausea or vomiting or diarrhea or f ever or chills or cramps. OBJECTIVE: GENERAL: This is a well-built male in no apparent distress. VITAL SIGNS: Temperature 97.7, pulse 65, respiratory rate 18, blood pressure is 167/70. HEENT: Atraumatic, normocephalic. Oral mucosa is moist. NECK: Supple. CARDIOVASCULAR: S1, S2 heard. Rate and rhythm regular. RESPIRATORY: Clear to auscultation. GASTROINTESTINAL: Abdomen is soft. MUSCULOSKELETAL: No tenderness. No edema. DERMATOLOGIC: No skin rash. NEUROLOGIC: Alert and awake and oriented x3. No focal neurologic deficits. Moving all the extremit ies. LABORATORY DATA: Potassium is 4.3, BUN is 26, creatinine is 1.2. ASSESSMENT AND PLAN: 1. Acute kidney injury on chronic kidney disease, stage 3. Renal function is better. 2. Hypertension. 3. Edema, controlled. 4. Anemia. Monitor hemoglobin. 5. Renal function is better. Avoid nephrotoxins.
--- NOTE | 2018-04-05 20:49 | PDOC.PN ---
- Subjective Encounter Start Date: 04/05/18 Encounter Start Time: 12:30 Patient seen and examined for Hyperosmolar hyperglycemic state/UGI bleeding. No new complaints except for some epistaxis. No overnight events - Objective Resuscitation Status: Resuscitation Status FULL:Full Resuscitation MAR Reviewed: Yes Vital Signs & Weight: Vital Signs (12 hours) Temp Pulse Resp BP BP Pulse Ox 04/05/18 20:39 156/105 H 04/05/18 19:18 99.1 F 61 20 161/110 H 96 04/05/18 16:04 97.7 F 65 18 167/117 H 94 L 04/05/18 14:52 195/108 H 04/05/18 11:05 97.6 F 66 18 159/106 H 98 Weight Admit Weight 173 lb Weight 177 lb 6 oz I&O: 04/04/18 04/05/18 04/06/18 06:59 06:59 06:59 Intake Total 1070 1460 1414 Output Total 825 1450 1300 Balance 245 10 114 Result Diagrams: 04/04/18 05:30 04/05/18 03:32 Additional Labs: Accuchecks 04/05/18 04/05/18 04/05/18 19:48 16:39 10:36 POC Glucose 136 H 125 H 187 H 04/05/18 06:09 POC Glucose 109 EKG Reviewed by me: Yes (Tele SR) Phys Exam - Physical Examination Constitutional: NAD Respiratory: no wheezing, no rhonchi Cardiovascular: RRR, no rub Gastrointestinal: soft, non-tender, positive bowel sounds Dx/Plan - Plan DVT proph w/SCDs IMPRESSION: 1. Hyperosmolar Hyperglycemic state - improved 2. A flutter s/p Ablation 3. UGI bleeding 4. CLAY/Hyperkalemia/Lactic acidosis - improving 5. HTN - uncontrolled 6. Other issues per previous notes PLAN: EGD in AM AM labs Cont to monitor Add Nasal saline spray Cont O2 humidification Amlodipine restarted today Cont other meds as below Review of Systems - Review of Systems Respiratory: negative: Cough, Dry, Shortness of Breath, Hemoptysis, SOB with Excertion, Pleuritic Pain, Sputum, Wheezing Cardiovascular: negative: chest pain, palpitations, orthopnea, paroxysmal nocturnal dyspnea, edema, light headedness, other - Medications/Allergies Allergies/Adverse Reactions: Allergies Allergy/AdvReac Type Severity Reaction Status Date / Time cephalexin [From Keflex] Allergy Mild Rash Verified 04/01/18 23:01 corn Allergy Mild Diarrhea Verified 12/18/15 12:39 Medications: Current Medications Acetaminophen (Tylenol) 650 mg PO Q4H PRN PRN Reason: Headache/Fever or Pain Hydrocodone Bitart/Acetaminophen ([place] 5/325) 1 tab PO Q4H PRN PRN Reason: Moderate Pain (4-6) Last Admin: 04/05/18 12:33 Dose: 1 tab Amlodipine Besylate (Norvasc) 5 mg PO DAILY [facility] Artificial Tears (Tears Renewed 15ml Bottle) 0 drop EA EYE PRN PRN PRN Reason: Dry Eyes Clonidine (Catapres) 0.1 mg PO Q4H PRN PRN Reason: Systolic BP > 180 Clonidine (Catapres) 0.4 mg PO TID EVANGELINA Last Admin: 04/05/18 20:39 Dose: 0.4 mg Dextrose/Water (Dextrose 50%) 25 gm SLOW IVP PRN PRN PRN Reason: Hypoglycemia Glucagon (Glucagon) 1 mg IM PRN PRN PRN Reason: Hypoglycemia Guaifenesin (Robitussin Sf) 200 mg PO Q4H PRN PRN Reason: Cough Dextrose/Water (D5w) 1,000 mls @ 0 mls/hr IV .Q0M PRN PRN Reason: Hypoglycemia Insulin Human Lispro (Humalog) 0 units SC .MODERATE SLIDING SC PRN PRN Reason: Moderate Correctional Scale Last Admin: 04/05/18 12:34 Dose: 2 unit Insulin Human Lispro (Humalog) 0 units SC .BEDTIME SLIDING SC PRN PRN Reason: Bedtime Correctional Scale Labetalol HCl (Normodyne) 20 mg SLOW IVP Q4H PRN PRN Reason: Systolic BP > 180 Loperamide HCl (Imodium) 2 mg PO PRN PRN PRN Reason: Diarrhea/Loose Stools Loratadine (Claritin) 10 mg PO DAILYPRN PRN PRN Reason: Sinus Symptoms Magnesium Hydroxide (Milk Of Magnesium) 30 ml PO DAILYPRN PRN PRN Reason: Constipation Mineral Oil/White Petrolatum (Eucerin Cream) 0 gm TOP BIDPRN PRN PRN Reason: Dry Skin Nitroglycerin (Nitrostat) 0.4 mg SL Q5MIN PRN PRN Reason: Chest Pain Ondansetron HCl (Zofran Odt) 4 mg PO Q6H PRN PRN Reason: Nausea/Vomiting Ondansetron HCl (Zofran) 4 mg IVP Q6H PRN PRN Reason: Nausea/Vomiting Last Admin: 04/05/18 07:55 Dose: 4 mg Pantoprazole Sodium (Protonix) 40 mg IVP BID [facility] Last Admin: 04/05/18 20:40 Dose: 40 mg Phenol (Chloraseptic [place] 180 Ml Bot) 0 ml PO PRN PRN PRN Reason: Sore Throat Senna (Senokot) 2 tab PO HSPRN PRN PRN Reason: Constipation Sodium Chloride ([place]ust[place] Nasal [place] 0.65%) 0 ml EA NARE QIDPRN PRN PRN Reason: Nasal Congestion Sodium Chloride (Flush - Normal Saline) 10 ml IVF Q12HR [facility] Last Admin: 04/05/18 20:40 Dose: 10 ml Sodium Chloride (Flush - Normal Saline) 10 ml IVF PRN PRN PRN Reason: Saline Flush Sodium Chloride (Flush - Normal Saline) 10 ml IVF PRN PRN PRN Reason: Saline Flush Zolpidem Tartrate (Ambien) 5 mg PO HSPRN PRN PRN Reason: Insomnia
[2018-04-06 04:09] LABS: #Basophils 0.1 thou/uL (0.0-0.2); #Eosinphils 0.1 thou/uL (0.0-0.7); #Lymphocytes 2.8 thou/uL (1.20-3.40); #Monocytes 0.7 thou/uL (0.11-0.59); #Neutrophils 5.3 thou/uL (1.40-6.50); %Basophils 0.6 % (0.0-1.0); %Eosinophils 1.5 % (0.0-10.0); %Lymphocytes 31.1 % (21.0-51.0); %Monocytes 7.8 % (0.0-10.0); %Neutrophils 59.1 % (42.0-75.0); Hemoglobin 15.8 g/dL (14.0-18.0); Mean Corpuscular Hemoglobin 31.6 pg (27.0-31.0); Mean Corpuscular Volume 90.2 fL (78.0-98.0); Mean Platelet Volume 10.4 fL (7.4-10.4); Platelet Count 151 thou/uL (130-400); RBC Distribution Width 11.5 % (11.5-14.5); Red Blood Cell (RBC) Count 5.01 mill/uL (4.70-6.10); White Blood Cell (WBC) Count 8.9 thou/uL (4.8-10.8)
[2018-04-06 04:29] LABS: Anion Gap 17 mmol/L (10-20); BUN (Urea Nitrogen) 25 mg/dL (8.4-25.7); Calc. Creatinine Clearance 82 mL/min (70-130); Calcium 9.3 mg/dL (7.8-10.44); Carbon Dioxide 18 mmol/L (22-29); Chloride 103 mmol/L (98-107); Estimated GFR-MDRD 64; Glucose 132 mg/dL (70-105); Phosphorus 2.7 mg/dL (2.3-4.7); Sodium 134 mmol/L (136-145)
[2018-04-06] MEDS: HYDROcodone/Acetaminophen 5/325 mg Tablet PO PRN ×2 (04:34→16:30)
[2018-04-06 05:02] LABS: Magnesium 2.2 mg/dL (1.6-2.6)
[2018-04-06] MEDS ORDERED: hydrALAZINE 20 MG/ML VIAL SLOW IVP PRN (07:28)
[2018-04-06] MEDS: cloNIDine 0.2 MG TAB PO SCH ×3 (07:44→21:48)
[2018-04-06] MEDS: Pantoprazole 40 MG VIAL IVP SCH (07:44)
[2018-04-06] MEDS: Ondansetron HCl/PF 4 MG/2 ML Vial IVP PRN (07:50)
[2018-04-06] MEDS ORDERED: Amlodipine 5 MG TAB PO SCH ×2 (09:00→16:00)
--- NOTE | 2018-04-06 13:19 | PRG ---
DATE OF SERVICE: 04/06/2018 SUBJECTIVE: Patient was seen and examined at bedside and overnight events noted. Patient denies any shortness of breath or chest pain or palpitation. No history of nausea or vomiting or diarrhea or fever or chills or cramps. OBJECTIVE: General: This is a well-built male in no apparent distress. Vital Signs: Temperature 97.8, pulse 74, respiratory rate 16, and blood pressure . Head: Atraumatic, normocephalic. Oral mucosa is moist. Neck: Supple. Cardiovascular: S1 and S2 heard. Rate and rhythm regular. Respiratory: Clear. Gastrointestinal: Abdomen is soft. Musculoskeletal: No tenderness. No edema. Dermatologic: No skin rash. Neurologic: Alert and awake and oriented x3. No focal neurologic deficits. Moving all the extremities. Psychiatric: Mood and affect normal. LABORATORY DATA: Creatinine is 1.1. ASSESSMENT AND PLAN: 1. Acute kidney injury. 2. Chronic kidney disease, stage 2. Renal function is better. 3. Hypertension. 4. Edema. 5. Anemia - Monitor hemoglobin. [facility]
[2018-04-06] MEDS ORDERED: PROPOFOL 200 MG/20 ML VIAL ONE (15:19)
--- NOTE | 2018-04-06 15:50 | PDOC.PN ---
- Subjective Encounter Start Date: 04/06/18 Encounter Start Time: 15:49 Feels well. Tolerated scope without problems. Eating well. Normal B/B function. Has not ambulated much. - Objective Resuscitation Status: Resuscitation Status FULL:Full Resuscitation MAR Reviewed: Yes Vital Signs & Weight: Vital Signs (12 hours) Temp Pulse Resp BP BP Pulse Ox 04/06/18 15:36 63 199/111 H 04/06/18 12:40 97.8 F 59 L 16 99 04/06/18 12:01 97.8 F 59 L 16 179/105 H 99 04/06/18 08:00 97.8 F 75 16 96 04/06/18 07:44 167/116 H 04/06/18 07:24 97.8 F 75 16 167/116 H 96 04/06/18 04:43 97.2 F L 55 L 17 186/110 H 97 04/06/18 04:31 74 186/110 H Weight Admit Weight 173 lb Weight 174 lb 6.4 oz I&O: 04/05/18 04/06/18 04/07/18 06:59 06:59 06:59 Intake Total 1460 1739 100 Output Total 1450 1900 0 Balance 10 -161 100 Result Diagrams: 04/06/18 03:29 04/06/18 03:29 Additional Labs: Accuchecks 04/06/18 04/06/18 04/05/18 11:40 05:54 19:48 POC Glucose 136 H 155 H 136 H 04/05/18 16:39 POC Glucose 125 H Phys Exam - Physical Examination Constitutional: NAD Respiratory: no wheezing, no rales Minimal scattered ronchi Cardiovascular: RRR, no significant murmur, no rub Gastrointestinal: soft, non-tender, no distention, positive bowel sounds Musculoskeletal: no edema Neurological: non-focal Psychiatric: normal affect Dx/Plan (1) Gastritis Code(s): K29.70 - GASTRITIS, UNSPECIFIED, WITHOUT BLEEDING Status: Acute (2) ARF (acute renal failure) Status: Acute Comment: renal function improving (3) GI bleed Code(s): K92.2 - GASTROINTESTINAL HEMORRHAGE, UNSPECIFIED Status: Acute (4) CKD (chronic kidney disease) stage 2, GFR 60-89 ml/min Code(s): N18.2 - CHRONIC KIDNEY DISEASE, STAGE 2 (MILD) Status: Chronic (5) DM2 (diabetes mellitus, type 2) Status: Chronic (6) Dyslipidemia Code(s): E78.5 - HYPERLIPIDEMIA, UNSPECIFIED Status: Chronic (7) Hypertension Code(s): I10 - ESSENTIAL (PRIMARY) HYPERTENSION Status: Chronic (8) Diabetic hyperosmolar non-ketotic state Code(s): E11.00 - TYPE 2 DIAB W HYPROSM W/O NONKET HYPRGLY-HYPROS COMA ([facility]) Status: Resolved - Plan * Hyperketotic hyperosmolar state resolved. Blood sugars well controlled. * No evidence of active GI bleeding. PPI. OK to use anticoag if desired by Cards. * Renal function normalized. * S/P ablation for atrial fib. No further problems. Avoiding chronotropes. * BP still too high. Will increase the Norvasc. * Elevated BP is the primary issue that is still pending. Everything else stable.
--- NOTE | 2018-04-06 16:37 | EKG ---
Test Reason : CHEST PAIN Blood Pressure : / mmHG Vent. Rate : 127 BPM Atrial Rate : 127 BPM P-R Int : 164 ms QRS Dur : 098 ms QT Int : 322 ms P-R-T Axes : 000 048 -76 degrees QTc Int : 467 ms Sinus tachycardia Left ventricular hypertrophy with repolarization abnormality Inferior infarct , age undetermined Abnormal ECG Confirmed by PHILIPP DEL CID ([id number]), editor magazine RADHA LUONG ([id number]) on 04/06/2018 4:37:19 PM Referred By: Confirmed By:PHILIPP DEL CID
--- NOTE | 2018-04-06 18:14 | OP ---
DATE OF SERVICE: 04/06/2018 PREOPERATIVE DIAGNOSES: 1. Prior history of hematemesis on admission. 2. Atrial fibrillation, status post cardioversion, now a question of whether or not he can start ant icoagulation. POSTOPERATIVE DIAGNOSES: 1. Reflux esophagitis, moderate mid esophagus likely from metagenic injury, low risk for bleeding. 2. Otherwise, normal esophagogastroduodenoscopy. RECOMMENDATIONS: 1. PPI therapy. 2. If he needs to be anticoagulated from a cardiovascular standpoint and that he should be at low ri sk for complications of that. This has been conveyed to the hospitalist caring from today. ANESTHESIA: TIVA. PROCEDURE IN DETAIL: After the patient was informed of the risks, benefits, and possible complicatio ns of endoscopy including perforation, bleeding, reactions to medication and aspiration, informed con sent was obtained. The patient brought to endoscopy suite where he was sedated in gradual fashion. Once he was comfortable, a bite block was placed in the incisural orifice. The endoscope was advance d through the esophagus, stomach and second and third portion of duodenum and slowly removed. There was good visualization of mucosa. There were no masses, lesions or arteriovenous malformations ident ified. There was esophagitis with erosion in the mid esophagus. There was no stigmata indication hi gh risk for bleeding from this. The stomach was normal. The duodenum was normal. The scope was rem javi. The patient tolerated the procedure well with no complications.
[2018-04-07] MEDS: HYDROcodone/Acetaminophen 5/325 mg Tablet PO PRN ×2 (04:51→09:33)
[2018-04-07] MEDS ORDERED: Amlodipine 10 MG TAB PO SCH (09:00)
[2018-04-07] MEDS: cloNIDine 0.2 MG TAB PO SCH (09:28)
--- NOTE | 2018-04-07 12:27 | PRG ---
DATE OF SERVICE: 04/07/2018 SUBJECTIVE: Patient was seen and examined at bedside and overnight events noted. Patient denies any shortness of breath or chest pain or palpitation. No history of nausea or vomitin g or diarrhea or fever or chills or cramps. OBJECTIVE: GENERAL: This is a well-built male, in no apparent distress. VITAL SIGNS: Temperature 96.9, pulse 62, respiratory rate 18, blood pressure 198/110. HEENT: Atraumatic, normocephalic. Oral mucosa is moist. NECK: Supple. CARDIOVASCULAR: S1 and S2 heard. Rate and rhythm regular. RESPIRATORY: Clear to auscultation. GASTROINTESTINAL: Abdomen is soft. MUSCULOSKELETAL: No tenderness. No edema. DERMATOLOGIC: No skin rash. NEUROLOGIC: Alert and awake and oriented x3. No focal neurologic deficits. Moving all the extremit ies. PSYCHIATRIC: Mood and affect normal. LABORATORY DATA: Not done today. ASSESSMENT AND PLAN: 1. Acute kidney injury, renal function is better. 2. Chronic kidney disease stage 3. 3. Hypertension, stable. 4. Edema, controlled. I will sign off. Please call back with any questions.
[2018-04-07] MEDS: HumaLOG 300 UNITS/3 ML VIAL SC PRN (12:52)
[2018-04-07 12:57] VITALS: BP 144/96; TEMP 98.1
== END 2018-04-07 15:00 | disposition home or self-care (01) | DRG 982 ==
LOC: ERS 12:33 → ERHOLD 16:08 → IMCU/EMU 22:03 → 2NO 04-06 10:11
PROVIDERS: ADMIT Internal Medicine; ATTEND Internal Medicine
PROC: 02583ZZ Destruction of Conduction Mechanism, Percutaneous Approach (ICD-10-PCS; principal; 2018-04-04)
PROC: 4A023FZ Measurement of Cardiac Rhythm, Percutaneous Approach (ICD-10-PCS; 2018-04-04)
PROC: 4A0234Z Measurement of Cardiac Electrical Activity, Percutaneous Approach (ICD-10-PCS; 2018-04-04)
PROC: 0DJ08ZZ Inspection of Upper Intestinal Tract, Via Natural or Artificial Opening Endoscopic (ICD-10-PCS; 2018-04-06)
DX: E11.00 Type 2 diabetes mellitus with hyperosmolarity without nonketotic hyperglycemic-hyperosmolar coma (NKHHC) (principal); I48.92 Unspecified atrial flutter; N17.9 Acute kidney failure, unspecified; E87.2 Acidosis; K92.2 Gastrointestinal hemorrhage, unspecified; E87.1 Hypo-osmolality and hyponatremia; I12.9 Hypertensive chronic kidney disease with stage 1 through stage 4 chronic kidney disease, or unspecified chronic kidney disease; R60.9 Edema, unspecified; D64.9 Anemia, unspecified; E87.5 Hyperkalemia; N18.3 Chronic kidney disease, stage 3 (moderate); I48.91 Unspecified atrial fibrillation; E78.5 Hyperlipidemia, unspecified; F32.9 Major depressive disorder, single episode, unspecified; F41.9 Anxiety disorder, unspecified; E66.9 Obesity, unspecified; Z68.25 Body mass index [BMI] 25.0-25.9, adult; E86.0 Dehydration
CPT/HCPCS: 36415; 36416; 71045; 76942; 80048; 80053; 80061; 81003; 81015; 82010; 82271; 82553; 82570; 83036; 83605; 83735; 84100; 84300; 84484; 85025; 87040; 87086; 93005; 93010; 93306; 93613; 93623; 93653; 96361; 96365; 96366; 96375; 96376; A4216; C1730; C1769; C9113; J0360; J1265; J1644; J1815; J2250; J2270; J2405; J2704; J3010; J7050; Q0162

== ENCOUNTER 2019-01-06 09:22 | Inpatient (IN) | payer SELFPAY ==
[2019-01-06] MEDS ORDERED: Metoprolol Tartrate 5 MG/5 ML VIAL ONE (09:59)
--- NOTE | 2019-01-06 10:00 | RAD ---
PORTABLE CHEST 1 VIEW: DATE: 01/06/2019. TIME: 9:47 a.m. HISTORY: Chest pain, shortness of breath. FINDINGS: Comparison is made with the exam of 05/28/2018. The heart size is normal. The lungs are expanded without focal areas of consolidation, pneumothorace s, or pleural effusions. IMPRESSION: No radiographic evidence of acute cardiopulmonary process. POS: [facility]
[2019-01-06 10:15] LABS: ALT (SGPT) 11 U/L (8-55); AST (SGOT) 10 U/L (5-34); Albumin 6.2 g/dL (3.5-5.0); Alkaline Phosphatase 117 U/L (40-150); Anion Gap 31 mmol/L (10-20); BUN (Urea Nitrogen) 36 mg/dL (8.4-25.7); Bilirubin, Total 0.6 mg/dL (0.2-1.2); CK (CPK) 241 U/L (30-200); Calc. Creatinine Clearance 0 mL/min (70-130); Calcium 11.8 mg/dL (7.8-10.44); Carbon Dioxide 19 mmol/L (22-29); Chloride 84 mmol/L (98-107); Estimated GFR-MDRD 11; Globulin 3.4 g/dL (2.4-3.5); Potassium 3.7 mmol/L (3.5-5.1); Protein, Total 9.6 g/dL (6.0-8.3); Sodium 130 mmol/L (136-145)
[2019-01-06 10:19] LABS: CKMB 6.3 ng/mL (0-6.6)
[2019-01-06 10:21] LABS: Glucose 776 mg/dL (70-105)
[2019-01-06] MEDS ORDERED: Insulin Regular 300 UNITS/3 ML VIAL ONE ×2 (10:27→10:28)
[2019-01-06] MEDS ORDERED: Morphine 4 MG/ML VIAL ONE (10:29)
[2019-01-06] MEDS ORDERED: Ondansetron PF 4 MG/2 ML Vial ONE ×2 (10:29→12:32)
[2019-01-06 10:36] LABS: Band 10 % (5-11); Hemoglobin 19.3 g/dL (14.0-18.0); Lymphocytes 12 % (21-51); MDiff Complete? YES; Mean Corpuscular HGB CONC 33.6 g/dL (32.0-36.0); Mean Corpuscular Hemoglobin 30.5 pg (27.0-31.0); Mean Corpuscular Volume 90.8 fL (78.0-98.0); Mean Platelet Volume 11.3 fL (7.4-10.4); Monocytes 2 % (0-10); Neutrophil 76 % (42-75); Platelet Count 243 thou/uL (130-400); RBC Distribution Width 12.5 % (11.5-14.5); Red Blood Cell (RBC) Count 6.31 mill/uL (4.70-6.10); White Blood Cell (WBC) Count 25.6 thou/uL (4.8-10.8)
[2019-01-06] MEDS ORDERED: Zolpidem Tartrate 5 MG TAB PO PRN (10:59)
[2019-01-06] MEDS ORDERED: Dextrose 50% Abboject 50 ML SYRINGE SLOW IVP PRN (10:59)
[2019-01-06] MEDS ORDERED: Ondansetron ODT 4 MG TAB PO PRN (10:59)
[2019-01-06] MEDS ORDERED: Dextrose 5% in Water 1,000 ML IV PRN (10:59)
[2019-01-06] MEDS ORDERED: Acetaminophen 325 MG TAB PO PRN (10:59)
[2019-01-06] MEDS ORDERED: Sodium Chloride 0.9% 1,000 ML IV SCH (11:00)
[2019-01-06] MEDS ORDERED: niCARdipine 20MG In NaCl 20 MG/200 ML BAG ONE (11:09)
[2019-01-06] MEDS ORDERED: niCARdipine HCl 25 MG in Sodium Chloride 0.9% 250 ML 240 ML IVPB SCH (11:15)
--- NOTE | 2019-01-06 11:53 | HP ---
PRIMARY CARE PHYSICIAN: Brady Lawrence MD HISTORY OF PRESENT ILLNESS: The patient referred to [facility] by [facility] with acute renal failure and hyperosmolar state. The patient states his illness started last night when he went to the bathroom #2, it was a dark hard stool, usually has diarrhea. He denies any polyuria or polydipsia. He does admit to nausea and vomiting x12 hours as he has red blood in his emesis. He was placed on Eliquis approximately 9 months ago for atrial fibrillation, but has not taken it since he says he could not afford it. His labs etc., were reviewed by the emergency room physician, and he was admitted with a diagnoses of acute hyperosmolar state, acute renal failure, and hypertensive urgency to the intensive care unit. PAST MEDICAL HISTORY: He was admitted to the hospital on 04/12/2018 with acute renal failure, hyperosmolar state, upper gastrointestinal bleed, atrial fibrillation with rapid ventricular response, acute renal failure, diabetes, hypertension, and dyslipidemia. CURRENT MEDICATIONS: 1. Lantus 15 units at bedtime. 2. Clonidine 0.2 mg 2 tabs three times a day. 3. Aspirin 81 mg a day. ALLERGIES: NO KNOWN ALLERGIES. PAST SURGICAL HISTORY: I and D of left hand for cellulitis and abscess. ALLERGIES: HE STATES HE IS ALLERGIC TO CORN AND SUSPECTED ALLERGY TO KEFLEX. FAMILY HISTORY: Positive for coronary artery disease in his mother. SOCIAL HISTORY: He has remote history of cocaine. He currently admits to marijuana. Denies tobacco, alcohol, or drug abuse. He has full code status. His next of kin is Del Little junior. REVIEW OF SYSTEMS: GENERAL: He states he was dizzy last night. States he fainted twice last April. EYES: He has blurred vision. EAR, NOSE, AND THROAT: No ear pain or drainage. No nasal bleeding. No trouble swallowing. CARDIAC: He has had some pressure chest pain off and on since his atrial fibrillation diagnosis. He states it lasted about 15 minutes at a time. He has no orthopnea or paroxysmal nocturnal dyspnea. He states he has coughing and wheezing all the time. Does not smoke. He has dyspnea on exertion, which does not precipitate his chest pain. GASTROINTESTINAL: See present illness. GENITOURINARY: No dysuria or hematuria. MUSCULOSKELETAL: He has no swelling in his legs. He does have diabetic burning nerve pain in his legs from mid calf down. NEUROLOGICAL: No strokes, seizures, or focal weakness. PSYCHIATRIC: No anxiety or depression. SKIN: He has easy bruising on aspirin. HEME/LYMPH: No tender or swollen lymph nodes in the axilla, inguinal, or cervical area. NEUROLOGIC: He is alert, oriented, cooperative, in a remarkable lack of distress considering his positive findings. PHYSICAL EXAMINATION: VITAL SIGNS: Blood pressure 185/141, pulse 101, respirations 20, and temperature 97.7. HEENT: Examination of his head, eyes, ears, nose, and throat reveals pupils are equal, round, and reactive. Extraocular movements are intact. Sclerae are white. Tympanic membranes clear. Nose is clear. Oral mucous membranes are dry. Dental hygiene is adequate. No jugular venous distention, adenopathy, or thyromegaly. CHEST: Clear to auscultation and percussion. HEART: Regular rate and rhythm with accentuated first and second heart sounds. No murmurs or gallops appreciated. ABDOMEN: Soft. Bowel sounds are normal. There is no hepatosplenomegaly. No mass. No rebound. EXTREMITIES: Demonstrate no cyanosis, clubbing, or edema. PULSES: Carotid, radial, and femoral pulses intact, symmetric. Pedal pulses diminished. SKIN: Warm and dry without bruises or rash except for some small erythematous lesions over his left scapula, and he has what is apparent lipoma in that area. HEME/LYMPH: No tender or swollen lymph nodes in the axilla, inguinal, or cervical area. NEUROLOGIC: Cranial nerves 2 through 12 intact. Deep tendon reflexes absent in leg. Sensation decreased below the knee. DIAGNOSTIC DATA: EKG; sinus tachycardia with left ventricular hypertrophy and repolarization abnormality, reviewed by me. Chest x-ray; no cardiomegaly, CHF, or infiltrate. No evidence of emphysema. LABORATORY DATA: Sodium 130, chloride 84, CO2 of 19, BUN 36, creatinine 5.39, blood sugar 776, troponin 0.55, CK 241, CK-MB normal. White count 25.6, hemoglobin 19.3, hematocrit 57.3, and platelet count 243,000. ADMITTING DIAGNOSES: Hyperosmolar state; acute renal failure; hypertensive urgency; diabetes mellitus, type 2, out of control; gastrointestinal bleeding; atrial fibrillation by history; hypertension; and dyslipidemia historically. The patient will be admitted to the Critical Care Unit. IV Cardene started. Accu-Cheks q.2 hours with moderate sliding scale. IV fluid bolus of normal saline. Start IV fluids. Start Protonix IV. We will need GI and Renal consult. Job ID: [id number]
[2019-01-06 12:30] LABS: Anion Gap 25 mmol/L (10-20); BUN (Urea Nitrogen) 37 mg/dL (8.4-25.7); Calc. Creatinine Clearance 0 mL/min (70-130); Carbon Dioxide 21 mmol/L (22-29); Chloride 94 mmol/L (98-107); Estimated GFR-MDRD 12; Glucose 336 mg/dL (70-105); Potassium 3.4 mmol/L (3.5-5.1); Sodium 137 mmol/L (136-145)
[2019-01-06 12:35] LABS: Calcium 12.1 mg/dL (7.8-10.44)
[2019-01-06 12:37] LABS: Critical Call Chem Troponin I RESULT DECREASING; Troponin I 0.536 ng/mL (< 0.028)
[2019-01-06 12:38] LABS: Band 13 % (5-11); Hemoglobin 19.2 g/dL (14.0-18.0); Lymphocytes 13 % (21-51); MDiff Complete? YES; Mean Corpuscular HGB CONC 32.6 g/dL (32.0-36.0); Mean Corpuscular Hemoglobin 28.9 pg (27.0-31.0); Mean Corpuscular Volume 88.8 fL (78.0-98.0); Mean Platelet Volume 10.9 fL (7.4-10.4); Monocytes 4 % (0-10); Neutrophil 70 % (42-75); Platelet Count 255 thou/uL (130-400); RBC Distribution Width 12.3 % (11.5-14.5); Red Blood Cell (RBC) Count 6.64 mill/uL (4.70-6.10); White Blood Cell (WBC) Count 32.2 thou/uL (4.8-10.8)
[2019-01-06] MEDS: Sodium Chloride 0.9% 1,000 ML IV SCH ×2 (13:41→18:07)
[2019-01-06] MEDS: Pantoprazole 40 MG VIAL IVP SCH (13:41)
[2019-01-06] MEDS: HumaLOG 300 UNITS/3 ML VIAL SC PRN ×3 (13:46→17:25)
[2019-01-06 14:29] LABS: Troponin I 0.658 ng/mL (< 0.028)
[2019-01-06] MEDS: Labetalol HCl 100 MG/20 ML VIAL SLOW IVP PRN ×3 (14:29→21:57)
[2019-01-06] MEDS: hydrALAZINE 20 MG/ML VIAL SLOW IVP PRN ×2 (15:46→20:02)
[2019-01-06] MEDS ORDERED: Nitroglycerin 0.4 MG TAB (25 Tab Bottle) ONE (17:52)
[2019-01-06] MEDS ORDERED: Nitroglycerin 0.4 MG TAB (25 Tab Bottle) SL PRN (17:52)
--- NOTE | 2019-01-06 17:54 | PDOC.EVN ---
Event Note - Event Note Event Note: complains of pain all over, now has chest pain, rpt troponins, start asa, NTG, rpt EKG
[2019-01-06] MEDS ORDERED: traMADol HCl 50 MG TAB PO SCH (18:15)
[2019-01-06 18:21] LABS: Anion Gap 23 mmol/L (10-20); BUN (Urea Nitrogen) 41 mg/dL (8.4-25.7); Calc. Creatinine Clearance 21 mL/min (70-130); Carbon Dioxide 20 mmol/L (22-29); Chloride 94 mmol/L (98-107); Estimated GFR-MDRD 13; Glucose 275 mg/dL (70-105); Potassium 3.5 mmol/L (3.5-5.1); Sodium 133 mmol/L (136-145)
[2019-01-06 18:27] LABS: Mean Corpuscular HGB CONC 34.2 g/dL (32.0-36.0); Mean Corpuscular Hemoglobin 30.4 pg (27.0-31.0); Mean Corpuscular Volume 88.9 fL (78.0-98.0); Mean Platelet Volume 10.8 fL (7.4-10.4); Platelet Count 238 thou/uL (130-400); RBC Distribution Width 12.2 % (11.5-14.5); Red Blood Cell (RBC) Count 6.23 mill/uL (4.70-6.10); White Blood Cell (WBC) Count 35.6 thou/uL (4.8-10.8)
[2019-01-06 18:34] LABS: Band 2 % (5-11); Large Platelets SLIGHT; Lymphocytes 9 % (21-51); MDiff Complete? YES; Monocytes 5 % (0-10); Neutrophil 84 % (42-75); Platelet Morphology Comment Appears Adequate
[2019-01-06 18:38] LABS: Critical Call Chem Troponin I RESULT DECREASING; Troponin I 0.484 ng/mL (< 0.028)
--- NOTE | 2019-01-06 18:41 | CON ---
DATE OF CONSULTATION: 01/06/2019 CONSULTING PHYSICIAN: Dr. Nguyen. REASON FOR CONSULT: Acute kidney injury. REASON FOR ADMISSION: Aches and pains. HISTORY OF PRESENT ILLNESS: A 53-year-old male with history of frequent acute kidney injury, atrial fibrillation, type 2 diabetes, and hypertension, came to the hospital with aches and pains for 12 hours and was found to have elevated creatinine. Nephrology was consulted. The patient does have frequent admission for the same problem. No nausea or vomiting. No chest pain or palpitation, but he is complaining of pain all over. PAST MEDICAL HISTORY: Positive for CLAY in the past, GI bleed, atrial fibrillation, type 2 diabetes, hypertension, and hyperlipidemia. PAST SURGICAL HISTORY: I and D. HOME MEDICATIONS: 1. Lantus. 2. Clonidine. 3. Aspirin. ALLERGIES: NO KNOWN DRUG ALLERGIES. FAMILY HISTORY: Positive for heart disease. SOCIAL HISTORY: Remote history of cocaine and marijuana use. No tobacco or alcohol use. REVIEW OF SYSTEMS: CONSTITUTIONAL: Negative for weight loss or gain, ability to conduct usual activities. SKIN: Negative for rash, itching. EYES: Negative for double vision, pain. ENT/MOUTH: Negative for nose bleeding, neck stiffness, pain, tenderness. CARDIOVASCULAR: Negative for palpitations, dyspnea on exertion, orthopnea. RESPIRATORY: Negative for shortness of breath, wheezing, cough, hemoptysis, fever or night sweats. GASTROINTESTINAL: Negative for poor appetite, abdominal pain, heartburn, nausea, vomiting, constipation, or diarrhea. GENITOURINARY: Negative for urgency, frequency, dysuria, nocturia. MUSCULOSKELETAL: Negative for pain, swelling. NEUROLOGIC/PSYCHIATRIC: Negative for anxiety, depression. ALLERGY/IMMUNOLOGIC: Negative for skin rash, bleeding tendency. PHYSICAL EXAMINATION: GENERAL: Reveals a well-built male, in no apparent distress. VITAL SIGNS: Temperature 98.7, pulse 78, respiratory rate 20, blood pressure 140/89. HEENT: Atraumatic, normocephalic. Oral mucosa is dry. NECK: Supple. CARDIOVASCULAR: S1, S2 heard. Rate and rhythm regular. RESPIRATORY: Clear. GASTROINTESTINAL: Abdomen is soft. MUSCULOSKELETAL: No tenderness. No edema. DERMATOLOGIC: No skin rash. NEUROLOGIC: Alert and awake. PSYCHIATRIC: Mood and affect normal. LABORATORY DATA: Hemoglobin is 19.2. Sodium 137, potassium 3.4, BUN is 37, creatinine is 5.03, and calcium 12.1. ASSESSMENT AND PLAN: 1. Acute kidney injury, most likely from volume depletion. Agree with hydration. 2. Hypokalemia. Replace aggressively. 3. Metabolic acidosis. 4. Hypercalcemia. 5. Hemoconcentration. 6. Edema, controlled. 7. History of hypertension. Titrate medications. Continue IV fluids. 8. Hyperglycemia. Long-term prognosis, guarded. Continue IV fluids and avoid nephrotoxins. We will follow. Thank you for the consult. Job ID: [id number]
[2019-01-06 20:43] LABS: Troponin I 0.507 ng/mL (< 0.028)
[2019-01-06 22:36] LABS: Critical Call Chem Troponin I RESULT DECREASING; Troponin I 0.362 ng/mL (< 0.028)
[2019-01-06] MEDS: cloNIDine 0.2 MG TAB PO PRN (23:41)
[2019-01-06] MEDS ORDERED: Amlodipine 10 MG TAB PO SCH (23:45)
[2019-01-07] MEDS: hydrALAZINE 20 MG/ML VIAL SLOW IVP PRN ×2 (00:04→04:25)
[2019-01-07 00:35] LABS: Anion Gap 23 mmol/L (10-20); BUN (Urea Nitrogen) 45 mg/dL (8.4-25.7); Calc. Creatinine Clearance 23 mL/min (70-130); Calcium 10.3 mg/dL (7.8-10.44); Carbon Dioxide 19 mmol/L (22-29); Chloride 96 mmol/L (98-107); Estimated GFR-MDRD 14; Glucose 175 mg/dL (70-105); Potassium 3.3 mmol/L (3.5-5.1); Sodium 135 mmol/L (136-145)
[2019-01-07 00:41] LABS: Band 4 % (5-11); Hemoglobin 17.5 g/dL (14.0-18.0); Lymphocytes 6 % (21-51); MDiff Complete? YES; Mean Corpuscular HGB CONC 33.8 g/dL (32.0-36.0); Mean Corpuscular Hemoglobin 30.2 pg (27.0-31.0); Mean Corpuscular Volume 89.2 fL (78.0-98.0); Mean Platelet Volume 10.7 fL (7.4-10.4); Monocytes 8 % (0-10); Neutrophil 82 % (42-75); Platelet Count 218 thou/uL (130-400); RBC Distribution Width 12.3 % (11.5-14.5); Red Blood Cell (RBC) Count 5.81 mill/uL (4.70-6.10); White Blood Cell (WBC) Count 34.8 thou/uL (4.8-10.8)
[2019-01-07 01:16] LABS: Cocaine Metabolite Screen Not Detected (NotDetected); Medtox Reader # READER 4; Methamphetamine Not Detected (NotDetected); Opiate Screen Detected (NotDetected); Phencyclidine (PCP) Not Detected (NotDetected); THC/Cannabinoid Screen Detected (NotDetected)
[2019-01-07 01:17] LABS: Amphetamine Not Detected (NotDetected); Barbiturates Screen Not Detected (NotDetected); Benzodiazepine Screen Not Detected (NotDetected); Medtox Control Line Valid? VALID (VALID); Methadone Not Detected (NotDetected); Oxycodone Screen Not Detected (NotDetected); Tricyclic Screen Detected (NotDetected)
[2019-01-07] MEDS: Sodium Chloride 0.9% 1,000 ML IV SCH ×4 (01:18→18:28)
[2019-01-07] MEDS: Labetalol HCl 100 MG/20 ML VIAL SLOW IVP PRN ×3 (02:28→12:42)
[2019-01-07] MEDS: cloNIDine 0.2 MG TAB PO SCH ×3 (05:51→21:03)
[2019-01-07] MEDS: HumaLOG 300 UNITS/3 ML VIAL SC PRN ×3 (05:51→17:07)
[2019-01-07 07:48] LABS: Anion Gap 17 mmol/L (10-20); BUN (Urea Nitrogen) 50 mg/dL (8.4-25.7); Calc. Creatinine Clearance 28 mL/min (70-130); Calcium 10.3 mg/dL (7.8-10.44); Carbon Dioxide 21 mmol/L (22-29); Chloride 99 mmol/L (98-107); Estimated GFR-MDRD 18; Glucose 215 mg/dL (70-105); Potassium 3.8 mmol/L (3.5-5.1); Sodium 133 mmol/L (136-145)
[2019-01-07] MEDS ORDERED: Aspirin 325 MG TAB PO SCH (08:00)
[2019-01-07] MEDS ORDERED: Amlodipine 10 MG TAB PO SCH (09:00)
[2019-01-07] MEDS ORDERED: Iopamidol 370 76% 50 ML VIAL FS ONE (09:04)
--- NOTE | 2019-01-07 09:15 | PRG ---
DATE OF SERVICE: 01/07/2019 SUBJECTIVE: Patient was seen and examined at bedside and overnight events noted. Patient denies any shortness of breath or chest pain or palpitation. No history of nausea or vomiting or diarrhea or fever or chills or cramps. OBJECTIVE: GENERAL: This is a well-built male in no apparent distress. VITAL SIGNS: Temperature 98.6. Heart rate 88. Respiratory rate 18. Blood pressure 179/104. HEENT: Atraumatic, normocephalic. Oral mucosa is moist NECK: Supple. CARDIOVASCULAR: S1, S2 heard. Rate and rhythm regular. RESPIRATORY: Clear to auscultation. GASTROINTESTINAL: Abdomen is soft. MUSCULOSKELETAL: No tenderness. No edema. DERMATOLOGIC: No skin rash. NEUROLOGIC: Alert and awake and oriented X3. No focal neurologic deficits. Moving all the extremities. PSYCHIATRIC: Mood and affect normal. LABORATORY DATA: Potassium is 3.8, BUN is 50, creatinine is 3.6 ASSESSMENT AND PLAN: 1. Acute kidney injury secondary to volume depletion, getting better. 2. Hyponatremia, better. 3. replace. 4. Metabolic acidosis, better. 5. Hypovolemia. 6. History of hypertension. 7. Edema, controlled. 8. Monitor renal function. Avoid nephrotoxins. Continue hydration as tolerated. We will follow. Job ID: [id number]
[2019-01-07] MEDS: Pantoprazole 40 MG VIAL IVP SCH (09:42)
--- NOTE | 2019-01-07 10:46 | PDOC.PN ---
- Subjective Encounter Start Date: 01/07/19 Encounter Start Time: 10:44 Mr. Little was seen today in follow-up of acute renal failure and leukocytosis. Today he feels a little better, but continues to complain of pain in his left shoulder, and mid to lower back. He also says he has had chronic abdominal pain , and says he hurts when eats, and can feel the food passing through his colon. He says he was told he may have a stricyure there about a year ago. He also says his last colonoscopy was in 2008. - Objective Resuscitation Status - Order Detail: 01/06/19 10:51 Resuscitation Status Routine Resuscitation Status: FULL: Full Resuscitation MAR Reviewed: Yes Vital Signs & Weight: Vital Signs (12 hours) Temp Pulse BP Pulse Ox 01/07/19 09:42 93 192/118 H 01/07/19 08:00 98 01/07/19 07:13 98.6 F 01/07/19 06:30 93 184/107 H 01/07/19 05:51 149/99 H 01/07/19 04:25 89 197/122 H 01/07/19 03:51 99.4 F 01/07/19 02:28 98 193/11 H 01/07/19 00:04 84 230/132 H 01/06/19 23:41 84 208/128 H Weight Weight 184 lb 4.903 oz Most Recent Monitor Data Heart Rate from ECG 93 NIBP 192/118 NIBP BP-Mean 142 Respiration from ECG 20 SpO2 98 I&O: 01/06/19 01/07/19 01/08/19 06:59 06:59 06:59 Intake Total 1234 Output Total 200 Balance 1034 Result Diagrams: 01/07/19 00:10 01/07/19 07:22 Additional Labs: Accuchecks 01/07/19 01/07/19 01/06/19 10:26 05:38 22:01 POC Glucose 259 H 233 H 132 H 01/06/19 01/06/19 01/06/19 20:02 17:25 15:42 POC Glucose 182 H 329 H 351 H 01/06/19 01/06/19 13:06 12:18 POC Glucose 336 H 344 H Phys Exam - Physical Examination HEENT: PERRLA Respiratory: no wheezing, no rales, no rhonchi, clear to auscultation bilateral Cardiovascular: RRR, no significant murmur, no rub Gastrointestinal: soft, no distention, positive bowel sounds + mild diffuse tenderness, no rebound or guarding Musculoskeletal: no edema, pulses present Neurological: non-focal, normal sensation, moves all 4 limbs Psychiatric: normal affect, A&O x 3 Deviation from normal: + ovar lesions on the back, right side, with greyish base Dx/Plan (1) Leucocytosis Code(s): D72.829 - ELEVATED WHITE BLOOD CELL COUNT, UNSPECIFIED Status: Acute Comment: improving (2) Hypertensive urgency Code(s): I16.0 - HYPERTENSIVE URGENCY Status: Acute (3) ARF (acute renal failure) Status: Acute Comment: renal function improving (4) DM2 (diabetes mellitus, type 2) Status: Chronic (5) Hypertension Code(s): I10 - ESSENTIAL (PRIMARY) HYPERTENSION Status: Chronic - Plan * Leukocytosis- ? etiology- he does not appear toxic- will obtain blood and urine cultures, and start empiric antibiotics. Will check an abdominal CT scan as he has some vague abdominal complaints. Unfortunately can not use contrast due to his renal function. Will also consult ID . * Acute on chronic renal failure- improving with hydration- continue as per Nephrology recommendations * DM- poorly controlled- he tells me he had been taking Lantus insulin at home- will add a long acting insulin * HTN- his blood pressure is also poorly controlled- will change Amlodipine to Procardia, and add scheduled Hydralazine * AFIB- his heart rate is controlled- Will re-start Eliquis- he was evaluated on his last admission in 03/2018 for GI bleed, and had been cleared to re-start Anticoagulation. There are no current signs of acting bleeding * Chronic back pain- will try Tylenol and Ultram and Flexeril PRN
[2019-01-07] MEDS ORDERED: Cyclobenzaprine 10 MG TAB PO PRN (10:58)
[2019-01-07] MEDS: Vancomycin HCl 1 GM in Premix Bag 1 BAG IVPB SCH ×2 (11:48→21:06)
[2019-01-07 12:59] LABS: Anion Gap 12 mmol/L (10-20); BUN (Urea Nitrogen) 50 mg/dL (8.4-25.7); Calc. Creatinine Clearance 34 mL/min (70-130); Calcium 10.4 mg/dL (7.8-10.44); Carbon Dioxide 26 mmol/L (22-29); Chloride 99 mmol/L (98-107); Estimated GFR-MDRD 22; Glucose 227 mg/dL (70-105); Potassium 3.3 mmol/L (3.5-5.1); Sodium 134 mmol/L (136-145)
[2019-01-07] MEDS: traMADol HCl 50 MG TAB PO PRN (13:56)
[2019-01-07] MEDS: hydrALAZINE 25 MG TAB PO SCH ×2 (15:08→20:58)
--- NOTE | 2019-01-07 15:34 | CT ---
CT OF THE ABDOMEN AND PELVIS WITHOUT IV CONTRAST: INDICATION: History of dehydration and abdominal pain. COMPARISON: Prior CT examination of the abdomen and pelvis without contrast dated 11/11/2015. FINDINGS: Lung bases are clear. There is fatty infiltration of the liver. There is a calcified granuloma in the right hepatic lobe. The unopacified pancreas, adrenal glands, and spleen appear within normal limits. There is a 1.8 cm cyst involving the superior pole of the left kidney. No hydronephrosis is evident. There are moderate calcifications involving the abdominopelvic vasculature. There are scattered diverticula involving the colon without overt evidence of active diverticulitis. Sigmoid colon is underdistended with accentuation of the wall. There is a normal appendix in the ri ght lower quadrant. The bladder, rectum, and perirectal soft tissues are unremarkable-appearing. No definite acute osseous abnormality is evident. IMPRESSION: 1. No acute abnormality. 2. Fatty liver. 3. Left renal cyst. 4. Diverticulosis. POS: CET
--- NOTE | 2019-01-07 17:02 | CON ---
DATE OF CONSULTATION: HISTORY OF PRESENT ILLNESS: Del Little is a 53-year-old male. He very quickly admits he smoked crack for 25 years, quit a few years back. He says his blood pressure has never controlled. He takes four 0.2 mg Catapres tablets today. He He is on aspirin and takes insulin. He says he has had diarrheal illness, for which he has been taking hot and cold showers to make his stomach feel better. He also had some nausea and vomiting. He had very little p.o. intake in the last few days prior to admission. He was supposed to be on anticoagulation for atrial fibrillation, but has not been on this. He was admitted with uncontrolled hypertension and acute renal dysfunction. PAST MEDICAL HISTORY: Remarkable for; 1. Atrial fibrillation. 2. History of chronic kidney disease. 3. Diabetes. 4. Hypertension. 5. Lipid disorder. 6. History of drainage of an abscess in his left hand in the past. ALLERGIES: HE IS NOT ALLERGIC TO ANYTHING. FAMILY HISTORY: Positive for vascular disease. SOCIAL HISTORY: He still smokes marijuana. Does not smoke or drink. He smoked crack on a daily basis for 25 years. REVIEW OF SYSTEMS: A 10-point review of systems is negative at this time. He says he is feeling better. PHYSICAL EXAMINATION: VITAL SIGNS: His blood pressure is over 200 systolic and diastolic is over 100, but he says that is where his blood pressure normally is. Intake and output positive 1034 coming in today. Blood pressure 182/102, heart rate 92, he is afebrile, and respiratory rates in the teens. HEENT: Pupils are equal. Sclerae are anicteric. NECK: Supple. No lymphadenopathy. LUNGS: Clear. HEART: Regular rhythm. He has an S4. He has grade 2/6 systolic murmur. ABDOMEN: Soft and nontender. EXTREMITIES: Without clubbing, cyanosis, or edema. NEURO: Grossly nonfocal. LABORATORY DATA: White count 34.8, hemoglobin 17.5 today and on admission it was 19.3, and platelets 218,000. Sodium 134, potassium 3.3, chloride 99, bicarb 26, BUN 50, creatinine 2.99, and glucose 227. IMPRESSION: 1. Hypertension, poorly controlled, likely always poorly controlled as an outpatient based on the history provided. 2. Acute on chronic kidney disease. 3. Long history of crack cocaine use, abstinent now. 4. Ongoing marijuana use. 5. History of gastrointestinal bleed in the past. 6. History of atrial fibrillation, off anticoagulation for financial reasons by his history. PLAN: Continue supportive care. Gradual adjustment of blood pressure medications. Monitoring renal function. He probably can transfer off the intermediate care unit in the morning, given that he provides a history of always being hypertensive. Job ID: [id number]
[2019-01-07 18:38] LABS: Anion Gap 15 mmol/L (10-20); BUN (Urea Nitrogen) 46 mg/dL (8.4-25.7); Calc. Creatinine Clearance 44 mL/min (70-130); Calcium 9.8 mg/dL (7.8-10.44); Carbon Dioxide 23 mmol/L (22-29); Chloride 100 mmol/L (98-107); Estimated GFR-MDRD 30; Glucose 235 mg/dL (70-105); Potassium 3.4 mmol/L (3.5-5.1); Sodium 135 mmol/L (136-145)
[2019-01-07 18:56] LABS: Troponin I 0.108 ng/mL (< 0.028)
[2019-01-07] MEDS: Apixaban 5 MG TAB PO SCH (21:00)
[2019-01-07] MEDS: Nitroglycerin 2% Ointment 1 INCH/1 GM Packet TOP SCH (21:01)
[2019-01-07] MEDS: Insulin Glargine 10 UNITS in Pre-Filled Syringe 1 EACH SC SCH (21:01)
--- NOTE | 2019-01-08 00:09 | CON ---
DATE OF CONSULTATION: 01/07/2019 REASON FOR CONSULTATION: Leukemoid reaction. HISTORY OF PRESENT ILLNESS: A 53-year-old patient who has a history of type 2 diabetes mellitus, presumed gastroparesis and more than 15 admissions since 2013 for pretty much the exact same type of presentation with gastrointestinal symptoms, hyperosmolar syndrome, acute renal failure which resolves after admission, and hypertensive crisis. Usually stays in the hospital for a few days and things improve and renal failure resolves and is discharged. He lives in [place] in the [facility] [place] with other members of the family. He does not have insurance and is unemployed and is trying to obtain social security benefits. He has recently been started on insulin reportedly by his primary care physician, Dr. Lawrence in [place], and this time again, exactly the same type of presentation where he pretty much the day before admission, he develops this abdominal discomfort. He refers to this as a cramping sensation throughout the abdominal area associated with unremitting vomiting ends up admitted. No headaches. No odynophagia or dysphagia. No genitourinary symptoms. No significant diarrhea. No joint symptoms. PAST MEDICAL HISTORY: Type 2 diabetes mellitus, possible gastroparesis, multiple admissions with the above syndrome described including hypertensive crises, acute renal failure, mild rhabdomyolysis, some episodes with leukemoid reaction. MEDICATION LIST: 1. Tylenol. 2. Eliquis. 3. Aspirin. 4. Catapres. 5. Flexeril. 6. Hydralazine. 7. Insulin. 8. Labetalol. 9. Levofloxacin. 10. Nifedipine. 11. Zofran. 12. Pantoprazole. 13. Vancomycin. ALLERGIES: CEPHALEXIN WITH RASH. PAST SURGICAL HISTORY: Abscess in the left hand many years ago. FAMILY HISTORY: Coronary artery disease. SOCIAL HISTORY: No alcoholic beverage use. Remote use of cocaine. Smokes marijuana intermittently. No tobacco smoking. He is disabled and [facility] [employer] [facility]. PHYSICAL EXAMINATION: VITAL SIGNS: T-max 99.4, BP 180/90, pulse 96, respirations 16 to 22, O2 saturation 97%. SKIN: Shows area of erythroderma in the back area exclusively. There are 2 or 3 areas of superficial round ulceration almost like a blistering area in the left side of the back, right over the scapula. No petechia or purpura. LYMPHATIC: No lymphadenopathy. HEENT: Ocular movements with mild conjunctival hyperemia. Pupils are equal. Conjunctivae normal. Nasal passages and ear exam normal. Oral cavity was pretty much normal. Teeth with some decay and gum disease. NECK: Supple. No jugular vein distention or carotid bruits. LUNGS: Symmetric. Clear breath sounds. HEART: S1, S2. Regular rate. No S3 or S4. ABDOMEN: Soft. Not distended or tender. No ascites. No bladder distention. EXTREMITIES: No joint inflammatory activity. No edema. NEUROLOGICAL: Moves extremities equally. He is awake, oriented, follows commands. LABORATORY DATA: The latest labs; sodium 134, creatinine 2.99. Calcium is down to 10.4. CK was 241, has not been repeated. Liver profile within normal limits. Albumin 6.2. Toxicology with tricyclics, cannabinoids, opiates. White cell count is 25.6 up to 34.8, hemoglobin was at 19 and now 17.5, 76% neutrophils, 10% bands, 12% lymphocytes. Urinalysis was not done this admission. Microbiology with negative blood cultures thus far. All the previous cultures have been negative. IMAGING STUDIES: Abdomen and pelvis CT without any significant findings except for fatty liver. A few scattered diverticula. There is a chest x-ray with no infiltrates. ASSESSMENT: Type 2 diabetes, possible gastric varices, multiple admissions with the exact same presentation that he has displayed this time including acute onset of abdominal symptoms with cramps, unremitting nausea, vomiting, rhabdomyolysis, mild with acute renal failure from volume depletion, leukemoid reaction. He also has hypertensive urgency during those episodes. DISCUSSION: The leukemoid reaction is likely a consequence of the acute illness as opposed to secondary to an infectious process, although I agree with continuing antimicrobials until final culture results are shown to be negative. The reason underlying these recurrent episodes needs to be targeted to try to prevent future admissions, which are likely in his case, he has had 12 admissions since 2014 for the exact same clinical phenomenon. May consider formal gastric varices study. Of course, if he has diarrhea, then stool studies will be necessary as well. I expect him to improve over time and antimicrobials will be then discontinued as soon as the final culture results are negative. Job ID: [id number] MTDD
[2019-01-08] MEDS: Labetalol HCl 100 MG/20 ML VIAL SLOW IVP PRN (00:36)
[2019-01-08] MEDS: Morphine 2 MG/ML SYRINGE SLOW IVP PRN ×4 (00:38→18:09)
[2019-01-08] MEDS: cloNIDine 0.2 MG TAB PO PRN (00:40)
[2019-01-08] MEDS: Sodium Chloride 0.9% 1,000 ML IV SCH ×3 (02:23→18:03)
[2019-01-08 04:55] VITALS: BMI 34.0
[2019-01-08 05:16] LABS: #Lymphocytes 1.5 thou/uL (1.20-3.40); #Monocytes 1.1 thou/uL (0.11-0.59); %Basophils 0.2 % (0.0-1.0); %Lymphocytes 9.2 % (21.0-51.0); %Monocytes 6.6 % (0.0-10.0); Hemoglobin 15.3 g/dL (14.0-18.0); Mean Corpuscular HGB CONC 33.1 g/dL (32.0-36.0); Mean Corpuscular Hemoglobin 30.1 pg (27.0-31.0); Mean Corpuscular Volume 90.8 fL (78.0-98.0); Mean Platelet Volume 10.8 fL (7.4-10.4); Platelet Count 165 thou/uL (130-400); RBC Distribution Width 12.4 % (11.5-14.5); White Blood Cell (WBC) Count 16.6 thou/uL (4.8-10.8)
[2019-01-08] MEDS: cloNIDine 0.2 MG TAB PO SCH ×3 (06:23→22:24)
[2019-01-08] MEDS: Nitroglycerin 2% Ointment 1 INCH/1 GM Packet TOP SCH ×3 (06:23→21:09)
[2019-01-08] MEDS: HumaLOG 300 UNITS/3 ML VIAL SC PRN (06:24)
[2019-01-08] MEDS: Carvedilol 6.25 MG TAB PO SCH ×2 (09:13→18:03)
[2019-01-08] MEDS: Apixaban 5 MG TAB PO SCH (09:13)
[2019-01-08] MEDS: Aspirin Chewable 81 MG TAB PO SCH (09:13)
[2019-01-08] MEDS: traMADol HCl 50 MG TAB PO PRN (09:13)
[2019-01-08] MEDS: NIFEdipine XL 60 MG TAB PO SCH (09:14)
[2019-01-08] MEDS: hydrALAZINE 25 MG TAB PO SCH ×3 (09:15→21:08)
[2019-01-08] MEDS: Insulin Glargine 10 UNITS in Pre-Filled Syringe 1 EACH SC SCH ×2 (09:15→22:20)
[2019-01-08] MEDS: Pantoprazole 40 MG VIAL IVP SCH (09:16)
--- NOTE | 2019-01-08 09:16 | PDOC.PN ---
- Subjective Encounter Start Date: 01/08/19 Encounter Start Time: 09:14 Mr. Little was seen today in follow-up of altered mental status. He does not have any complaints. He denies chest pain this morning. He denies dyspnea. - Objective Resuscitation Status - Order Detail: 01/06/19 10:51 Resuscitation Status Routine Resuscitation Status: FULL: Full Resuscitation MAR Reviewed: Yes Vital Signs & Weight: Vital Signs (12 hours) Temp Pulse BP Pulse Ox 01/08/19 08:00 100 01/08/19 07:34 97.7 F 01/08/19 06:23 188/120 H 01/08/19 04:00 99.0 F 01/08/19 00:40 228/125 H 01/08/19 00:36 110 H 228/125 H 01/07/19 23:47 97.9 F Weight Weight 180 lb Most Recent Monitor Data Heart Rate from ECG 84 NIBP 163/104 NIBP BP-Mean 123 Respiration from ECG 22 SpO2 100 I&O: 01/07/19 01/08/19 01/09/19 06:59 06:59 06:59 Intake Total 1234 2100 Output Total 200 1425 Balance 1034 675 Result Diagrams: 01/08/19 04:33 01/07/19 18:10 Additional Labs: Accuchecks 01/08/19 01/07/19 01/07/19 05:49 19:49 16:25 POC Glucose 176 H 206 H 180 H 01/07/19 10:26 POC Glucose 259 H Phys Exam - Physical Examination HEENT: PERRLA, sclera anicteric Respiratory: no wheezing, no rales, no rhonchi, clear to auscultation bilateral Cardiovascular: RRR, no significant murmur, no rub Gastrointestinal: soft, non-tender, no distention, positive bowel sounds Musculoskeletal: pulses present, edema present trace pedal edema Neurological: non-focal, normal sensation, moves all 4 limbs Dx/Plan (1) Leucocytosis Code(s): D72.829 - ELEVATED WHITE BLOOD CELL COUNT, UNSPECIFIED Status: Acute Comment: improving (2) Hypertensive urgency Code(s): I16.0 - HYPERTENSIVE URGENCY Status: Acute (3) ARF (acute renal failure) Status: Acute Comment: renal function improving (4) DM2 (diabetes mellitus, type 2) Status: Chronic (5) Hypertension Code(s): I10 - ESSENTIAL (PRIMARY) HYPERTENSION Status: Chronic - Plan * Leukocytosis- ID recommendations appreciated- this likely represents a Leukomoid reaction to his present illness, rather than an acute infection * Will continue IV antibiotics until his culture results finalize * Hypertensive Urgency- his blood pressure is still elevated- Amlodipine was changed to Procardia, and increased the dose of Hydralazine- and added Carvediolol. Will monitor the effect of the next few days * Acute kidney injury- improving- continue to monitor renal function . * DM- blood glucose is better- ? etiology for poorly controlled blood glucose * He likely can be moved out of the [facility]
--- NOTE | 2019-01-08 10:25 | PRG ---
DATE OF SERVICE: 01/08/2019 SUBJECTIVE: Patient was seen and examined at bedside and overnight events noted. Patient denies any shortness of breath or chest pain or palpitation. No history of nausea or vomiting or diarrhea or fever or chills or cramps. OBJECTIVE: GENERAL: This is a well-built male, in no apparent distress. VITAL SIGNS: Temperature 97.7. Heart rate 84. Respiratory rate 22. Blood pressure 160/104. HEENT: Atraumatic, normocephalic. Oral mucosa is moist NECK: Supple. CARDIOVASCULAR: S1, S2 heard. Rate and rhythm regular. RESPIRATORY: Clear to auscultation. GASTROINTESTINAL: Abdomen is soft. MUSCULOSKELETAL: No tenderness. No edema. DERMATOLOGIC: No skin rash. NEUROLOGIC: Alert and awake and oriented X3. No focal neurologic deficits. Moving all the extremities. PSYCHIATRIC: Mood and affect normal. LABORATORY DATA: Not done today. ASSESSMENT AND PLAN: 1. Acute kidney injury, most likely secondary to volume depletion, getting better with hydration. 2. Hyponatremia. 3. Hypokalemia, replace and monitor. 4. History of hypertension. 5. Edema, controlled. 6. Renal function getting better. Continue hydration as tolerated. Recheck labs. We will follow. Job ID: [id number]
[2019-01-08] MEDS: Vancomycin HCl 1 GM in Premix Bag 1 BAG IVPB SCH ×2 (10:57→22:23)
[2019-01-08 12:02] LABS: Anion Gap 13 mmol/L (10-20); BUN (Urea Nitrogen) 32 mg/dL (8.4-25.7); Calc. Creatinine Clearance 75 mL/min (70-130); Calcium 9.3 mg/dL (7.8-10.44); Carbon Dioxide 23 mmol/L (22-29); Chloride 104 mmol/L (98-107); Estimated GFR-MDRD 58; Glucose 178 mg/dL (70-105); Potassium 3.9 mmol/L (3.5-5.1); Sodium 136 mmol/L (136-145)
--- NOTE | 2019-01-08 13:42 | CON ---
DATE OF CONSULTATION: REASON FOR CONSULTATION: Elevated troponin. HISTORY OF PRESENT ILLNESS: Mr. Little is an unfortunate 54-year-old gentleman, who has had multiple hospitalizations over the last several years. He recently presented with marked volume depletion. His creatinine had increased in the 5 range, it is now down to 1.3 after hydration. I was consulted for chest pain. The pain is described as sharp, worse with palpation. It is felt to be constant. According to the patient, it is felt to be mild. His troponin was 0.1, which is likely related to increased creatinine. PAST MEDICAL HISTORY: Noncompliant, diabetes mellitus, gastroparesis, rhabdomyolysis, recent leukemoid reaction. HOME MEDICATIONS: Include: 1. Eliquis. 2. Aspirin. 3. Tylenol. 4. Catapres. 5. Flexeril. 6. Hydralazine. 7. Insulin. 8. Labetalol. 9. Nifedipine. 10. Zofran. ALLERGIES: CEPHALEXIN. SOCIAL HISTORY: Positive marijuana use. No tobacco use. REVIEW OF SYSTEMS: A 10-point review of systems is reviewed as above, otherwise negative. PHYSICAL EXAMINATION: GENERAL: Patient is a pleasant 54-year-old gentleman, who is in no acute distress. The patient appears their stated age. VITAL SIGNS: Blood pressure 160/104, pulse 81, respirations 20. NEUROLOGIC: The patient is alert and oriented x3 with no focal neurologic deficits. HEENT: Sclerae without icterus. Mouth has moist mucous membranes with normal pallor. NECK: No JVD. Carotid upstroke brisk. No bruits bilaterally. LUNGS: Clear to auscultation with unlabored respirations. BACK: No scoliosis or kyphosis. CARDIAC: Regular rate and rhythm with normal S1 and S2. No S3 or S4 noted. No significant rubs, murmurs, thrills, or gallops noted throughout the precordium. PMI is not displaced. There is no parasternal heave. ABDOMEN: Soft, nontender, nondistended. No peritoneal signs present. No hepatosplenomegaly. No abnormal striae. EXTREMITIES: 2+ femoral and 2+ dorsalis pedis pulses. No cyanosis, clubbing, or edema. SKIN: No gross abnormalities. CHEST: Pain to palpation in the substernal region. PERTINENT LABORATORY DATA: White blood cell count 16,000. Sodium 136, creatinine 1.3 which is down from 5. Troponin 0.108. EKG shows normal sinus rhythm, ST-T wave changes suggesting ischemia versus LVH. When compared to previous EKG dated March 2018, EKG changes felt to be new. IMPRESSION: 1. Elevated troponin. 2. Abnormal EKG. 3. Atypical chest pain. 4. Renal failure, now improved. RECOMMENDATIONS: It is certainly difficult situation for Mr. Little. At this point, I would recommend stopping Eliquis. We will recommend a noninvasive stress study to assess for any evidence of ischemia. I am concerned about proceeding with angio after recent renal failure. His overall LVEF is appeared normal on his recent echo. He does have mild LVH present. Job ID: [id number]
--- NOTE | 2019-01-08 15:48 | PRG ---
DATE OF SERVICE: SUBJECTIVE: Del Little has no new complaints. OBJECTIVE: VITAL SIGNS: Blood pressure is gradually trending down, he is 160/104, heart rate is 85, and respiratory rate is 17 LUNGS: Unchanged. HEART: Unchanged. ABDOMEN: Unchanged. LABORATORY DATA: White count 16.6, hemoglobin 15.3, and platelets 165. Electrolytes are unremarkable. BUN is 32 and creatinine is down to 1.3. IMPRESSION: 1. Hypertension, poorly controlled, with improving control. 2. Acute on chronic kidney disease, likely with severe intravascular volume depletion. 3. Long history of crack cocaine. 4. Ongoing marijuana. 5. History of gastrointestinal bleed in the past with no clinical evidence of bleeding. His cultures remained negative. Stress test has been recommended once he gets a little stronger. Renal function appears to be improving. Overall, he appears to be stable enough to move out of the intermediate care unit. Job ID: [id number]
[2019-01-09] MEDS: Sodium Chloride 0.9% 1,000 ML IV SCH ×2 (03:11→11:53)
[2019-01-09] MEDS: hydrALAZINE 20 MG/ML VIAL SLOW IVP PRN (03:31)
[2019-01-09] MEDS: Nitroglycerin 2% Ointment 1 INCH/1 GM Packet TOP SCH ×2 (05:20→15:38)
[2019-01-09] MEDS: cloNIDine 0.2 MG TAB PO SCH ×2 (05:42→15:38)
[2019-01-09] MEDS: hydrALAZINE 25 MG TAB PO SCH (08:36)
[2019-01-09] MEDS: NIFEdipine XL 60 MG TAB PO SCH (08:36)
[2019-01-09 09:02] LABS: Anion Gap 10 mmol/L (10-20); BUN (Urea Nitrogen) 19 mg/dL (8.4-25.7); Calc. Creatinine Clearance 105 mL/min (70-130); Calcium 9.7 mg/dL (7.8-10.44); Carbon Dioxide 28 mmol/L (22-29); Chloride 104 mmol/L (98-107); Estimated GFR-MDRD 85; Glucose 151 mg/dL (70-105); Potassium 3.4 mmol/L (3.5-5.1); Sodium 139 mmol/L (136-145)
[2019-01-09 09:08] LABS: #Lymphocytes 2.1 thou/uL (1.20-3.40); #Monocytes 0.8 thou/uL (0.11-0.59); #Neutrophils 8.3 thou/uL (1.40-6.50); %Basophils 0.3 % (0.0-1.0); %Eosinophils 0.1 % (0.0-10.0); %Lymphocytes 18.5 % (21.0-51.0); %Monocytes 6.8 % (0.0-10.0); %Neutrophils 74.2 % (42.0-75.0); Hemoglobin 16.1 g/dL (14.0-18.0); Mean Corpuscular HGB CONC 32.6 g/dL (32.0-36.0); Mean Corpuscular Hemoglobin 29.6 pg (27.0-31.0); Mean Corpuscular Volume 90.7 fL (78.0-98.0); Mean Platelet Volume 10.7 fL (7.4-10.4); Platelet Count 184 thou/uL (130-400); RBC Distribution Width 12.5 % (11.5-14.5); Red Blood Cell (RBC) Count 5.45 mill/uL (4.70-6.10); White Blood Cell (WBC) Count 11.2 thou/uL (4.8-10.8)
[2019-01-09] MEDS ORDERED: ADENOSINE 60 MG/20 ML VIAL ONE (10:45)
[2019-01-09] MEDS: Insulin Glargine 10 UNITS in Pre-Filled Syringe 1 EACH SC SCH (11:47)
[2019-01-09 11:52] VITALS: BP 175/82; TEMP 97.1
[2019-01-09] MEDS: Carvedilol 6.25 MG TAB PO SCH (11:54)
[2019-01-09] MEDS: Aspirin Chewable 81 MG TAB PO SCH (11:54)
[2019-01-09] MEDS: Morphine 2 MG/ML SYRINGE SLOW IVP PRN (12:05)
--- NOTE | 2019-01-09 12:12 | NM ---
EXAM: Nuclear medicine cardiac perfusion examination with ejection fraction HISTORY: Chest pain TECHNIQUE: Rest images: 9.6 mCi technetium 99m sestamibi Stress images: 33 mCi of technetium 9M sestamibi; Adenosine COMPARISON: None FINDINGS: Tomographic images: No fixed or reversible perfusion defects. Gated images: Normal wall motion and ejection fraction of 51%. EDV: 117 mL LHR: 0.3 TID: 1.0 IMPRESSION: No evidence of ischemia
--- NOTE | 2019-01-09 12:32 | PRG ---
DATE OF SERVICE: 01/09/2019 SUBJECTIVE: Patient was seen and examined at bedside and overnight events noted. Patient denies any shortness of breath or chest pain or palpitation. No history of nausea or vomiting or diarrhea or fever or chills or cramps. OBJECTIVE: GENERAL: This is a well-built male, in no apparent distress. VITAL SIGNS: Temperature 96.3. Heart rate 68. Respiratory rate 16. Blood pressure . HEENT: Atraumatic, normocephalic. Oral mucosa is moist NECK: Supple. CARDIOVASCULAR: S1, S2 heard. Rate and rhythm regular. RESPIRATORY: Clear to auscultation. GASTROINTESTINAL: Abdomen is soft. MUSCULOSKELETAL: No tenderness. No edema. DERMATOLOGIC: No skin rash. NEUROLOGIC: Alert and awake and oriented X3. No focal neurologic deficits. Moving all the extremities. PSYCHIATRIC: Mood and affect normal. LABORATORY DATA: Potassium is 3.4, BUN 9, creatinine 0.9. ASSESSMENT AND PLAN: 1. Acute kidney injury, better. 2. Hypovolemia . 3. renal function due to multiple . We will continue to follow. Job ID: [id number]
[2019-01-09] MEDS: Vancomycin HCl 1 GM in Premix Bag 1 BAG IVPB SCH (13:18)
--- NOTE | 2019-01-09 13:38 | PDOC.CTH ---
Cardiology Progress Note - Subjective Pt doing well. No complaints noted. - Objective Vital Signs Temp Pulse Resp BP BP Pulse Ox 01/09/19 11:49 97.1 F L 93 18 175/82 H 97 01/09/19 08:26 96.3 F L 86 16 190/105 H 96 01/09/19 05:42 177/96 H 01/09/19 03:31 85 179/98 H 01/09/19 03:19 97.4 F L 87 18 177/102 H 97 Weight 180 lb 01/08/19 01/09/19 01/10/19 06:59 06:59 06:59 Intake Total 2100 Output Total 1425 950 Balance 675 -950 - Physical Examination General/Neuro: alert & oriented x3, NAD Neck: carotid US brisk, no JVD present Lungs: unlabored respirations Heart: PMI normal, RRR Abdomen: NT/ND, soft Extremities: + femoral B - Telemetry Telemetry Rhythm: sr - Labs Result Diagrams: 01/09/19 08:25 01/09/19 08:25 Troponin/CKMB CK-MB (CK-2) 6.3 ng/mL (0-6.6) 01/06/19 09:43 Troponin I 0.108 ng/mL (< 0.028) H 01/07/19 18:10 - Assessment/Plan Type 2 MS Renal failure Non-complinace Tobacco use Recnet stress test normal without ischemia present. EF 51%. Echo with LVH present. Increase troponin related to recent renal function demise that has resolved No other recommendations at this time Will need aggressive BP management as an OP I will sign off
--- NOTE | 2019-01-09 15:27 | PDOC.EVN ---
Event Note - Event Note Event Note: I came to see the patient in order to discharge home and discuss his medications. unfortunately he left AMA. He told the nurse around 2:40pm that he wanted to leave right now. I tried to get down as soon as possible to talk to him, however he left AMA.
[2019-01-10] MEDS ORDERED: Vancomycin HCl 1 GM in Premix Bag 1 BAG IVPB SCH (01:00)
--- NOTE | 2019-01-10 02:35 | DIS ---
DATE OF ADMISSION: 01/06/2019 DATE OF DISCHARGE: 01/09/2019 DISCHARGE DISPOSITION: Left against medical advice. DISCHARGE DIAGNOSES: 1. Acute kidney injury. 2. Diabetes mellitus with hyperosmolar state. 3. Hypertensive urgency. 4. History of polysubstance abuse. DISCHARGE MEDICATIONS: We will assume that he will continue taking the medications he was admitted on as we were unable to send the medications to his pharmacy because there was no pharmacy listed and he left AMA. PROCEDURES DONE DURING THE ADMISSION: The patient had a CT abdomen and pelvis showing no acute abnormality. There is some fatty liver and diverticulosis. The patient also had an echocardiogram. The EF was estimated at 55% to 60%. There was some mild concentric left ventricular hypertrophy. There is an E to A flow reversal noted suggestive of diastolic dysfunction. CODE STATUS: Full code. ALLERGIES: KEFLEX AND CORN. HOSPITAL COURSE: Mr. Little is a pleasant, 54-year-old gentleman who presented to the emergency room with dark stools and diarrhea. He was found to have hyperosmolar state with blood sugar of 700. He was also in acute kidney failure with a creatinine of 5.39. He also had a leukemoid reaction as well. He was started on IV fluids as well as aggressive insulin therapy in order to reverse the hyperosmolar state. He also was aggressively hydrated and his renal function normalized with his creatinine at the time he left is 0.93. His blood sugars also normalized too with low-dose Lantus as well as a sliding scale. He had a leukemoid reaction. However, there was no evidence of infection. Cultures were all negative, urine as well as blood. A CT of the abdomen was done to rule out intraabdominal infection, which was negative and he was seen by ID, and it was felt that the elevated white blood cell count was the result of the acute illness instead of acute infection. The patient also had a nuclear stress test done due to elevated troponins. The stress test was negative. He was also seen by Cardiology and it was felt that the elevated troponins was a combination of the renal insufficiency and hypertensive urgency. On the day the patient left, he became inpatient after having the stress test done and said that he wanted to leave right away. I was upstairs seeing other patients and got down to the floor within an hour, 40 minutes to be exact, and the patient did not want to wait and left before I could talk with him and make sure that his medications were properly prescribed and discussed. Job ID: [id number]
== END 2019-01-09 14:57 | disposition left against medical advice (07) | DRG 682 ==
LOC: ERS 09:22 → CCU 11:02 → IMCU/EMU 01-07 00:38 → 2NO 01-08 16:27
PROVIDERS: ADMIT Internal Medicine; ATTEND Internal Medicine
DX: N17.9 Acute kidney failure, unspecified (principal); E11.00 Type 2 diabetes mellitus with hyperosmolarity without nonketotic hyperglycemic-hyperosmolar coma (NKHHC); I21.A1 Myocardial infarction type 2; E87.1 Hypo-osmolality and hyponatremia; I16.0 Hypertensive urgency; F19.90 Other psychoactive substance use, unspecified, uncomplicated; F41.9 Anxiety disorder, unspecified; F32.9 Major depressive disorder, single episode, unspecified; E11.22 Type 2 diabetes mellitus with diabetic chronic kidney disease; N18.3 Chronic kidney disease, stage 3 (moderate); E87.6 Hypokalemia; E78.5 Hyperlipidemia, unspecified; E83.52 Hypercalcemia; I12.9 Hypertensive chronic kidney disease with stage 1 through stage 4 chronic kidney disease, or unspecified chronic kidney disease; D72.829 Elevated white blood cell count, unspecified; E86.1 Hypovolemia; Z91.19 Patient's noncompliance with other medical treatment and regimen; Z88.1 Allergy status to other antibiotic agents; Z79.4 Long term (current) use of insulin; Z79.82 Long term (current) use of aspirin
CPT/HCPCS: 36415; 36416; 71045; 74176; 78452; 80048; 80053; 80306; 82010; 82550; 82553; 84484; 85025; 87040; 87086; 93005; 93010; 93017; 93306; 94760; 96361; 96365; 96375; 96376; A9500; C9113; J0153; J0360; J1815; J1825; J1956; J2270; J2405; J3370; J7050; Q0162; Q9967

== ENCOUNTER 2020-01-27 02:30 | Inpatient (IN) | payer OTHER, SELFPAY ==
[2020-01-27] MEDS ORDERED: Haloperidol Lactate 5 MG/ML VIAL ONE (02:52)
[2020-01-27] MEDS ORDERED: Ketorolac Tromethamine 30 MG/ML VIAL ONE (02:52)
[2020-01-27 03:24] LABS: ALT (SGPT) 9 U/L (8-55); AST (SGOT) 11 U/L (5-34); Albumin 3.8 g/dL (3.5-5.0); Alkaline Phosphatase 104 U/L (40-110); Anion Gap 18 mmol/L (10-20); BUN (Urea Nitrogen) 120 mg/dL (8.4-25.7); Bilirubin, Total 0.5 mg/dL (0.2-1.2); Calc. Creatinine Clearance 0 mL/min (70-130); Calcium 8.7 mg/dL (7.8-10.44); Carbon Dioxide 28 mmol/L (22-29); Chloride 82 mmol/L (98-107); Estimated GFR-MDRD 31; Globulin 2.8 g/dL (2.4-3.5); Glucose 261 mg/dL (70-105); Hemoglobin 18.3 g/dL (14.0-18.0); Lipase 97 U/L (8-78); Mean Corpuscular Hemoglobin 31.1 pg (27.0-31.0); Mean Platelet Volume 12.4 fL (7.4-10.4); Platelet Count 158 thou/uL (130-400); Protein, Total 6.6 g/dL (6.0-8.3); RBC Distribution Width 11.6 % (11.5-14.5); Red Blood Cell (RBC) Count 5.89 mill/uL (4.70-6.10); Sodium 125 mmol/L (136-145); White Blood Cell (WBC) Count 16.7 thou/uL (4.8-10.8)
[2020-01-27 03:25] LABS: #Eosinphils 0.1 thou/uL (0.0-0.7); #Monocytes 1.5 thou/uL (0.11-0.59); #Neutrophils 13.1 thou/uL (1.40-6.50); %Basophils 0.2 % (0.0-1.0); %Eosinophils 0.6 % (0.0-10.0); %Lymphocytes 12.2 % (21.0-51.0); %Monocytes 8.7 % (0.0-10.0); %Neutrophils 78.3 % (42.0-75.0)
[2020-01-27 03:30] LABS: Potassium 2.8 mmol/L (3.5-5.1)
[2020-01-27] MEDS ORDERED: Potassium Chloride 20 MEQ TAB ONE (03:39)
[2020-01-27 03:47] LABS: CKMB 3.5 ng/mL (0-6.6)
[2020-01-27] MEDS ORDERED: hydrALAZINE 20 MG/ML VIAL ONE (03:59)
[2020-01-27] MEDS ORDERED: Fentanyl 100 MCG/2 ML VIAL ONE (03:59)
--- NOTE | 2020-01-27 04:13 | PDOC.HHP ---
Hospitalist HPI - History of Present Illness Abdominal pain, nausea & vomiting History of Present Illness: Patient with PMH of HTN, HLD, DM, possible Chrohns disease, chronic CBD use presents to ED for evaluation of about 1 week progression of gneralized abdominal pain, nausea, vomiting and poor oral intake. Denies any fever, chills , diarrhea, blood in stool. Tells me that he has not been able to take his medications as prescribed due to severe nausea. Having a hard time keeping oral intake due to nausea, vomiting and abdominal pain. Tells me that in the past his exacerbations present in similar fashion but this time there is no diarrhea. Initial ED evaluation reveals patient in mild distress. Multiple abnormalities including acute renal failure with BUN of 102, SCr of 2.2, Na of 125, K of 2.8, elevated glucose of 261, elevated troponin of 0.083. No abdominal imaging has yet been obtained. VS reveal elevated BP of 180/100. Otherwise no fever, hypoxia or tachycardia. Hospitalist ROS - Review of Systems Constitutional: denies: fever, chills, weakness Eyes: denies: pain, vision change Respiratory: denies: cough, shortness of breath, hemoptysis, SOB with excertion Cardiovascular: denies: chest pain, palpitations, paroxysmal noc. dyspnea, light headedness Gastrointestinal: reports: nausea, vomiting, abdominal pain. denies: diarrhea, melena, hematochezia Genitourinary: denies: dysuria, frequency, incontinence Musculoskeletal: denies: neck pain Skin: denies: rash Neurological: reports: weakness - Exam General - other findings: Mild distress due to nausea and abdominal pain Eye: PERRL ENT: normocephalic atraumatic Neck: supple, no JVD Heart: RRR, no murmur, no gallops Respiratory: CTAB, no wheezes, no rales Gastrointestinal: soft, non-distended Gastrointestinal - other findings: mild generalized tenderness Hospitalist Results - Labs Result Diagrams: 01/27/20 02:57 01/27/20 02:57 Lab results: WBC 16.7 thou/uL (4.8-10.8) H 01/27/20 02:57 Hgb 18.3 g/dL (14.0-18.0) H 01/27/20 02:57 Hct 52.4 % (42.0-52.0) H 01/27/20 02:57 MCV 89.0 fL (78.0-98.0) 01/27/20 02:57 Plt Count 158 thou/uL (130-400) 01/27/20 02:57 Neutrophils % 78.3 % (42.0-75.0) H 01/27/20 02:57 Sodium 125 mmol/L (136-145) L 01/27/20 02:57 Potassium 2.8 mmol/L (3.5-5.1) L* 01/27/20 02:57 Chloride 82 mmol/L (98-107) L 01/27/20 02:57 Carbon Dioxide 28 mmol/L (22-29) 01/27/20 02:57 BUN 120 mg/dL (8.4-25.7) H 01/27/20 02:57 Creatinine 2.20 mg/dL (0.7-1.3) H 01/27/20 02:57 Glucose 261 mg/dL (70-105) H 01/27/20 02:57 Calcium 8.7 mg/dL (7.8-10.44) 01/27/20 02:57 Total Bilirubin 0.5 mg/dL (0.2-1.2) 01/27/20 02:57 AST 11 U/L (5-34) 01/27/20 02:57 ALT 9 U/L (8-55) 01/27/20 02:57 Alkaline Phosphatase 104 U/L (40-110) 01/27/20 02:57 CK-MB (CK-2) 3.5 ng/mL (0-6.6) 01/27/20 02:57 Troponin I 0.083 ng/mL (< 0.028) H 01/27/20 02:57 Serum Total Protein 6.6 g/dL (6.0-8.3) 01/27/20 02:57 Albumin 3.8 g/dL (3.5-5.0) 01/27/20 02:57 Lipase 97 U/L (8-78) H 01/27/20 02:57 - Radiology Interpretation Other Status: image reviewed by wi Hospitalist H&P A/P - Plan Plan: Problem List 1. Hyponatremia due to dehydration 2. Acute renal failure 3. Electrolyte abnormality 4. Abdominal pain of unclear etiology 5. Elevated troponin due to demand ischemia 6. Elevated glucose levels 7. History of AF 8. History of HTN Assessment and Plan 1. Hyponatremia due to dehydration - severe dehydration in setting of nausea, vomiting, abd pain, poor oral intake - continue with general IVF resuscitation - monitor Na and other electrolytes closely - IV Zofran and IV Morphine PRN - keep NPO for now and advance diet as tolerated - CT abdomen has been ordered - hold off on antibiotics or steroids for now - pending progression can consider GI consultation 2. Acute renal failure - in setting of significant dehydration - continue with IVFs - avoid nephrotoxic agents - pending progression can consider nephrology consultation 3. Electrolyte abnormality - in setting of nausea and vomiting - hypkoalemia; replaced - recheck labs this afternoon 4. Nausea, vomiting, abdominal pain of unclear etiology - CT abdomen has been ordered; Chrohns unlikely in absence of diarrhea - chronic CBC oil use could be contributing to symptoms - very mild elevation of lipase likely trivial - keep NPO for now and control symptoms to advance diet - IV Zofran and IV Morphine PRN 5. Elevated troponin due to demand ischemia - elevated trop likely in setting of demand and renal failure - trend cardiac enzymes, has had negative work up in the past 6. Elevated glucose levels in known diabetic - admits to non compliance with medications - hold oral hypoglycemics - start ISS for now 7. Possible history of AF - hold Eliquis for now due to renal dysfunction - pending repeat labs this afternoon can consider renal dosing 8. History of HTN - continue with home medications - hold nephrotoxic agents DVT PPX: HepSQ for now; consider restarting Eliquis at renal dose FULL CODE
[2020-01-27] MEDS ORDERED: Dextrose 50% Abboject 50 ML SYRINGE SLOW IVP PRN (04:26)
[2020-01-27] MEDS ORDERED: Morphine 2 MG/ML SYRINGE SLOW IVP PRN (04:26)
[2020-01-27] MEDS ORDERED: Dextrose 5% in Water 1,000 ML IV PRN (04:26)
[2020-01-27] MEDS ORDERED: HumaLOG 300 UNITS/3 ML VIAL SC PRN (04:26)
[2020-01-27] MEDS ORDERED: Acetaminophen 325 MG TAB PO PRN (04:26)
[2020-01-27] MEDS ORDERED: Ondansetron PF 4 MG/2 ML Vial IVP PRN (04:26)
[2020-01-27] MEDS ORDERED: Aspirin 325 MG TAB ONE (04:35)
[2020-01-27 05:20] LABS: Hemoglobin A1c 13.1 % (4.0-6.0)
[2020-01-27] MEDS: Sodium Chloride 0.9% 1,000 ML IV SCH ×4 (05:30→14:35)
[2020-01-27 05:40] LABS: Troponin I 0.096 ng/mL (< 0.028)
--- NOTE | 2020-01-27 07:46 | CT ---
PRELIMINARY REPORT/[facility]/EMERGENCY AFTER HOURS PROCEDURE: EXAM: CT Abdomen and Pelvis Without Intravenous Contrast CLINICAL HISTORY: Patient presents with abdominal pain for 1 week. He has had occasional vomiting but has not been drinking or eating much. He denies fever. He has chronic diarrhea which he reports is unchanged. He says this pain is similar to numerous previous episodes of IBS and or Crohn's disease TECHNIQUE: Axial computed tomography images of the abdomen and pelvis without intravenous contrast. CONTRAST: None. COMPARISON: CTSR - CT ABDOMEN PELVIS WO CON - 01/07/2019 01:22 PM CDT FINDINGS: LUNG BASES: No basilar airspace consolidation or pleural effusion. LIVER: Calcification within the liver which may represent prior granulomatous disease. GALLBLADDER AND BILE DUCTS: Gallbladder is distended with fluid with mild pericholecystic fat strandi ng. PANCREAS: Unremarkable. SPLEEN: Unremarkable. ADRENAL GLANDS: Unremarkable. KIDNEYS, URETERS, AND BLADDER: 2.0 cm left renal cyst. No nephrolithiasis or hydronephrosis. STOMACH AND BOWEL: No obstruction. No wall thickening. No CT evidence of colitis or acute diverticuli tis. APPENDIX: Normal appendix. PERITONEUM: No free fluid. No free air. LYMPH NODES: No lymphadenopathy. REPRODUCTIVE: Unremarkable as visualized. VASCULATURE: Scattered atherosclerotic calcifications of the aorta. ABDOMINAL WALL AND SOFT TISSUES: Small bilateral fat-containing inguinal hernias. BONES: No fracture or suspicious osseous abnormality. IMPRESSION: Gallbladder is distended with fluid with mild pericholecystic fat stranding. Further ev aluation with right upper quadrant ultrasound is recommended in order to evaluate for acute cholecystitis. ELECTRONICALLY SIGNED BY: Ashley Carvajal MD Jan 27, 2020 5:13:56 AM CDT FINAL REPORT ABDOMEN CT WITHOUT CONTRAST PELVIC CT WITHOUT CONTRAST: HISTORY: Abdominal pain. COMPARISON: 01/07/2019. FINDINGS: Abdomen CT: Lung bases:Clear. Heart size: Normal heart size. No significant pericardial fluid. Aorta: Normal caliber aorta. Atherosclerosis. Solid organs: Grossly no solid organ abnormality. Lymph nodes: No gastrohepatic, retrocrural or periportal lymphadenopathy. Gallbladder: Mild gallbladder distention. Mesentery: No mass, lymphadenopathy, free air or free fluid. Kidneys: Bilaterally, no hydronephrosis, nephrolithiasis or perinephric fat stranding. Bilateral uret ers have a normal caliber. No hydroureter, periureteral fat stranding or ureterolithiasis. Alimentary canal: Limited evaluation by the lack of oral contrast. No bowel obstruction. Normal calib er appendix. CT PELVIS: No mass, adenopathy, free air or free fluid. Urinary bladder: Unremarkable. Osseous structures: No lytic or blastic lesions. IMPRESSION: 1. This report is in agreement with initial report by [facility]. 2. No evidence of obstructive uropathy. 3. Mild gallbladder distention. If there is concern for cholecystitis, consider ultrasound. Transcribed Date/Time: 01/27/2020 8:22 AM
[2020-01-27] MEDS ORDERED: cloNIDine 0.2 MG TAB PO SCH ×2 (09:00)
[2020-01-27] MEDS ORDERED: Amlodipine 10 MG TAB PO SCH (09:00)
[2020-01-27] MEDS ORDERED: Amlodipine 5 MG TAB PO SCH (09:00)
[2020-01-27] MEDS: cloNIDine 0.2 MG TAB PO SCH ×4 (09:08→20:46)
[2020-01-27] MEDS: Amlodipine 5 MG TAB PO SCH (09:08)
[2020-01-27 09:25] LABS: PTT 28.4 sec (22.9-36.1); Prothrombin Time 12.9 sec (12.0-14.7)
--- NOTE | 2020-01-27 09:43 | RAD ---
RADIOGRAPH CHEST 1 VIEW: DATE: 01/27/2020 HISTORY: 55-year-old male with chest pain FINDINGS: There are no airspace densities, pulmonary edema, pneumothorax, or cardiomegaly. The lateral costophr enic angles are sharp. IMPRESSION: No acute cardiopulmonary findings.
[2020-01-27 09:45] LABS: ALT (SGPT) 14 U/L (8-55); AST (SGOT) 19 U/L (5-34); Albumin 4.4 g/dL (3.5-5.0); Alkaline Phosphatase 120 U/L (40-110); Bilirubin, Direct 0.2 mg/dL (0.1-0.3); Bilirubin, Total 0.4 mg/dL (0.2-1.2)
[2020-01-27 09:51] LABS: Troponin I 0.108 ng/mL (< 0.028)
[2020-01-27] MEDS ORDERED: Sodium Chloride 0.9% 2,000 ML IV SCH (10:15)
[2020-01-27] MEDS: Aspirin 81 mg Enteric Coated Tablet PO SCH (10:30)
[2020-01-27] MEDS: Heparin 5,000 UNITS/ML VIAL SC SCH ×3 (10:31→20:46)
[2020-01-27] MEDS: Famotidine/PF 20 mg/2ml Vial SLOW IVP SCH (10:31)
[2020-01-27 14:28] LABS: #Eosinphils 0.1 thou/uL (0.0-0.7); #Lymphocytes 2.1 thou/uL (1.20-3.40); #Monocytes 1.2 thou/uL (0.11-0.59); #Neutrophils 10.5 thou/uL (1.40-6.50); %Basophils 0.3 % (0.0-1.0); %Eosinophils 0.5 % (0.0-10.0); %Lymphocytes 15.3 % (21.0-51.0); %Monocytes 8.9 % (0.0-10.0); Hemoglobin 15.7 g/dL (14.0-18.0); Mean Corpuscular HGB CONC 33.3 g/dL (32.0-36.0); Mean Corpuscular Hemoglobin 29.9 pg (27.0-31.0); Mean Corpuscular Volume 89.9 fL (78.0-98.0); Mean Platelet Volume 12.1 fL (7.4-10.4); Platelet Count 140 thou/uL (130-400); RBC Distribution Width 11.7 % (11.5-14.5); Red Blood Cell (RBC) Count 5.23 mill/uL (4.70-6.10)
--- NOTE | 2020-01-27 14:37 | PDOC.HOSPP ---
- Subjective Encounter Date: 01/27/20 Encounter Time: 08:40 Subjective: pt has not followed with GI doc for his crohns and not on any immunosuppressants. last flare up over a year ago. feels mostly back of the neck - pain and no risk for COVID exposure, he says, he stays w.. couple of foks , who work outside. no dysuria but feels not able to void, due to being dehydrated. - Objective Vital Signs & Weight: Vital Signs (12 hours) Temp Pulse Resp BP BP BP Pulse Ox 01/27/20 13:00 98 F 80 18 166/100 H 97 01/27/20 12:25 137/84 01/27/20 10:46 160/94 H 01/27/20 09:08 83 185/106 H 01/27/20 09:06 83 16 185/106 H 01/27/20 07:00 96.9 F L 90 20 142/91 H 94 L Weight Weight 187 lb 2 oz I&O: 01/26/20 01/27/20 01/28/20 06:59 06:59 06:59 Output Total 250 Balance -250 Result Diagrams: 01/27/20 14:01 01/27/20 02:57 Additional Labs: Accuchecks 01/27/20 01/27/20 01/27/20 10:48 08:31 02:41 POC Glucose 187 H 209 H 288 H Hospitalist ROS - Medication Medications: Active Medications Generic Name Dose Route Start Last Admin Trade Name Freq PRN Reason Stop Dose Admin Amlodipine Besylate 5 mg 01/27/20 09:00 01/27/20 09:08 Norvasc PO 5 mg DAILY EVANGELINA Administration Aspirin 81 mg 01/27/20 09:00 01/27/20 10:30 Ecotrin PO 81 mg DAILY EVANGELINA Administration Clonidine 0.4 mg 01/27/20 09:00 01/27/20 12:25 Catapres PO 0.4 mg QID EVANGELINA Administration Famotidine 20 mg 01/27/20 09:00 01/27/20 10:31 Pepcid SLOW IVP 20 mg QAM EVANGELINA Administration Heparin Sodium (Porcine) 5,000 units 01/27/20 09:00 01/27/20 10:31 Heparin SC 5,000 units TID EVANGELINA Administration Sodium Chloride 1,000 mls @ 200 mls/hr 01/27/20 12:00 06/16/20 09:30 Normal Saline 0.9% IV 01/27/20 21:59 1,000 mls Q5H EVANGELINA Administration Morphine Sulfate 2 mg 01/27/20 04:26 01/27/20 09:07 Morphine SLOW IVP 2 mg Q4H PRN Administration Severe Pain (7-10) Sodium Chloride 10 ml 01/27/20 09:00 01/27/20 10:38 Flush - Normal Saline IVF 10 ml Q12HR EVANGELINA Administration - Exam General Appearance: NAD, awake alert Eye: PERRL ENT: normocephalic atraumatic Neck: supple Heart: RRR Respiratory: normal chest expansion Neurological: no focal deficits Psychiatric: A&O x 3 Hosp A/P - Plan nausea - cough, abd discomfort, body ache -cxr neg., but ferritin level quite high --cl'x improession of COVID - screened - pending result. -start Ctx, zithro - can dc after neg test -- 1. Hyponatremia due to dehydration --aggressive hydration leukocytosis -trending down. 2. Acute renal failure - in setting of significant dehydration - continue with IVFs - avoid nephrotoxic agents 3. Electrolyte abnormality - in setting of nausea and vomiting - hypkoalemia; replaced 4. Nausea, vomiting, abdominal pain of unclear etiology - CT abdomen has been ordered; Chrohns unlikely in absence of diarrhea - chronic CBC oil use could be contributing to symptoms - very mild elevation of lipase likely trivial - keep NPO for now and control symptoms to advance diet - IV Zofran and IV Morphine PRN 5. Elevated troponin due to demand ischemia - elevated trop likely in setting of demand and renal failure 6. Elevated glucose levels in known diabetic ---13.1 Uncontro'd DM2 - admits to non compliance with medications - hold oral hypoglycemics - start ISS for now 7. Possible history of AF - hold Eliquis for now due to renal dysfunction - 8. History of HTN - continue with home medications - hold nephrotoxic agents DVT PPX: HepSQ for now; consider restarting Eliquis at renal dose FULL CODE
[2020-01-27] MEDS ORDERED: hydrALAZINE 20 MG/ML VIAL SLOW IVP PRN (14:47)
[2020-01-27 15:00] LABS: ALT (SGPT) 10 U/L (8-55); AST (SGOT) 14 U/L (5-34); Albumin 3.1 g/dL (3.5-5.0); Alkaline Phosphatase 81 U/L (40-110); Anion Gap 13 mmol/L (10-20); BUN (Urea Nitrogen) 98 mg/dL (8.4-25.7); Bilirubin, Total 0.3 mg/dL (0.2-1.2); Calc. Creatinine Clearance 57 mL/min (70-130); Calcium 7.9 mg/dL (7.8-10.44); Carbon Dioxide 26 mmol/L (22-29); Chloride 93 mmol/L (98-107); Estimated GFR-MDRD 40; Globulin 2.4 g/dL (2.4-3.5); Glucose 191 mg/dL (70-105); Potassium 3.2 mmol/L (3.5-5.1); Protein, Total 5.5 g/dL (6.0-8.3); Sodium 129 mmol/L (136-145)
[2020-01-27] MEDS ORDERED: Insulin Glargine 20 UNITS in Pre-Filled Syringe 1 EACH SC SCH (21:00)
[2020-01-28 05:34] LABS: #Eosinphils 0.1 thou/uL (0.0-0.7); #Monocytes 1.1 thou/uL (0.11-0.59); #Neutrophils 11.1 thou/uL (1.40-6.50); %Basophils 0.2 % (0.0-1.0); %Eosinophils 0.5 % (0.0-10.0); %Lymphocytes 13.7 % (21.0-51.0); %Monocytes 7.6 % (0.0-10.0); Hemoglobin 16.3 g/dL (14.0-18.0); Mean Corpuscular HGB CONC 32.6 g/dL (32.0-36.0); Mean Corpuscular Hemoglobin 29.7 pg (27.0-31.0); Mean Corpuscular Volume 91.2 fL (78.0-98.0); Mean Platelet Volume 11.8 fL (7.4-10.4); Platelet Count 142 thou/uL (130-400); RBC Distribution Width 11.7 % (11.5-14.5); Red Blood Cell (RBC) Count 5.48 mill/uL (4.70-6.10); White Blood Cell (WBC) Count 14.2 thou/uL (4.8-10.8)
[2020-01-28] MEDS: Famotidine/PF 20 mg/2ml Vial SLOW IVP SCH (08:10)
[2020-01-28] MEDS: cloNIDine 0.2 MG TAB PO SCH (08:10)
[2020-01-28] MEDS: Aspirin 81 mg Enteric Coated Tablet PO SCH (08:10)
[2020-01-28] MEDS: Amlodipine 5 MG TAB PO SCH (08:10)
[2020-01-28] MEDS: Heparin 5,000 UNITS/ML VIAL SC SCH (08:11)
[2020-01-28 09:24] VITALS: BP 137/87; TEMP 97.8
[2020-01-28 09:39] VITALS: BMI 26.2
--- NOTE | 2020-01-28 18:26 | DIS ---
DATE OF ADMISSION: 01/27/2020 DATE OF DISCHARGE: 01/28/2020 DISCHARGE DISPOSITION: The patient signed out against medical advice. PRIMARY DISCHARGE DIAGNOSES: Sepsis, intractable nausea and vomiting, possible cholecystitis, severe dehydration, acute kidney injury, hyponatremia, and diabetes mellitus type 2. PROCEDURES DONE DURING HOSPITALIZATION: Chest x-ray done showed no acute cardiopulmonary abnormality. CT of the abdomen and pelvis without contrast done showed findings of distended gallbladder with mild pericholecystic fat stranding. Ultrasound is recommended. There is no evidence of obstructive uropathy seen. Had a white count of 16 on the day of admission, discharge white count of 14, H and H of 16 and 50, platelet count 142, 78% neutrophils, and 13% lymphocytes. PT/INR/PTT within normal limits. BUN and creatinine of 98 and 1.7, serum bicarb 26, sodium 129, potassium 3.2 on the day of discharge. Albumin is 3.1. Ferritin 605. AST and ALT within normal limits, alk phos was 120, total bilirubin 0.4. Initial BUN and creatinine were 120 and 2.20. BRIEF COURSE DURING HOSPITALIZATION: The patient initially came on January 27, 2020, with complaints of abdominal pain, nausea, and vomiting. He has also had very little oral intake. The patient was found to be in acute kidney injury with intractable nausea, vomiting, sepsis, and to rule out COVID. The patient had hyponatremia with severe dehydration along with hypokalemia as well. He was being worked up. He was gently hydrated during his stay here. COVID-19 PCR was obtained and the results are not available at present. This morning, the patient went against medical advice. He did not want to stay here anymore. The patient knew he was at risk for multiple complications if he left despite which he signed against medical advice and is fully oriented prior to discharge. Please note, I have not seen the patient on the day of discharge as he signed out against advice prior to me seeing him. Job ID: [id number] MTDD
[2020-01-29 11:54] LABS: SARS-CoV-2 MS2 Positive; SARS-CoV-2 N Gene Negative; SARS-CoV-2 S Gene Negative; SARS-CoV-2 orf1ab Negative
--- NOTE | 2020-01-30 01:21 | PQF ---
[employer] Crystal Reports Winform Viewer CAROL GIFFORD VINAYA KUMAR MD [id number] CLINICAL DOCUMENTATION CLARIFICATION FORM: POST DISCHARGE Addendum to original discharge summary date: ____ Late entry note date: __ DATE: 01/30/20 ATTN:Joesph Oro Please exercise your independent, professional judgment in responding to the clarification form. Clinical indicators are provided on the bottom of this form for your review Can you please further clarify the diagnosis of the patient? Please check appropriate box(s): [ ] NSTEMI due to Demand Ischemia (AMI Type II) [ x ] Demand Ischemia without DE [ ] Other diagnosis please specify [ ] Unable to determine In addition, please specify: Present on Admission (POA): [ x ] Yes [ ] No [ ] Unable to determine CLINICAL INDICATORS - SIGNS / SYMPTOMS / LABS H and P pg.4- elevated troponin due to demand ischemia H and P pg.4- elevated trop likely in the setting of demand and renal failure H and P pg.1- Elevated troponin of 0.083 ED Provider pg.3- EKG ST segments normal, T wave inverted Laboratory- Troponin 0.083H, 0.096H, 0.105H, 0.108H Vital Signs 01/26: temp=98 Pulse=90 AL=679/106,166/100 Respi=20 Labs CK-MB: 01/26=3.5 RISKS: CLAY- H and P pg.2 HTN- H and P pg.2 DM pg.1 HLD- H and P pg.1 CKD3 ED Provider pg.3 Afib- H and P pg.4 High cholesterol ED Notes 01/26 TREATMENTS: EKG- ED Provider pg.3 Chest X ray 01/26 IV Fluids- MAR Aspirin 325 mg IV- MAR Aspirin 81mg PO- MAR Catapres 0.4mg PO- MAR Heparin 5000 units sc- MAR Morphine 2gm IV- MAR (This form is maintained as a part of the permanent medical record) 2014 [employer], [employer]. All Rights Reserved [email or web address]
--- NOTE | 2020-01-31 14:39 | EKG ---
Test Reason : Blood Pressure : / mmHG Vent. Rate : 080 BPM Atrial Rate : 080 BPM P-R Int : 158 ms QRS Dur : 108 ms QT Int : 422 ms P-R-T Axes : 064 041 -82 degrees QTc Int : 486 ms Poor data quality, interpretation may be adversely affected Sinus rhythm with occasional Premature ventricular complexes Possible Left atrial enlargement Possible Inferior infarct , age undetermined Abnormal ECG Confirmed by PHILIPP DEL CID ([id number]), non linear editor DAVID PEPE ([id number]) on 01/31/2020 2:39:30 PM Referred By: Confirmed By:PHILIPP DEL CID
== END 2020-01-28 11:05 | disposition left against medical advice (07) | DRG 872 ==
LOC: ERS 02:30 → OBSVTOIN 04:10 → ERHOLD 04:10 → 2NO 07:19 → 2SW 13:26
PROVIDERS: ADMIT Internal Medicine; ATTEND Internal Medicine
DX: A41.9 Sepsis, unspecified organism (principal); N17.9 Acute kidney failure, unspecified; E87.1 Hypo-osmolality and hyponatremia; I24.8 Other forms of acute ischemic heart disease; Z20.828 Contact with and (suspected) exposure to other viral communicable diseases; E86.0 Dehydration; E78.5 Hyperlipidemia, unspecified; E78.00 Pure hypercholesterolemia, unspecified; E11.22 Type 2 diabetes mellitus with diabetic chronic kidney disease; E11.65 Type 2 diabetes mellitus with hyperglycemia; N18.3 Chronic kidney disease, stage 3 (moderate); I12.9 Hypertensive chronic kidney disease with stage 1 through stage 4 chronic kidney disease, or unspecified chronic kidney disease; I48.91 Unspecified atrial fibrillation; F41.9 Anxiety disorder, unspecified; F32.9 Major depressive disorder, single episode, unspecified; K81.9 Cholecystitis, unspecified; Z88.1 Allergy status to other antibiotic agents; Z79.4 Long term (current) use of insulin; Z79.899 Other long term (current) drug therapy; Z53.29 Procedure and treatment not carried out because of patient's decision for other reasons
CPT/HCPCS: 36415; 36416; 71045; 74176; 80053; 82553; 82728; 83036; 83605; 83690; 83735; 84484; 85025; 85610; 85730; 87635; 93005; J0360; J1630; J1644; J1815; J1885; J2270; J3010; J7050; S0028; U0003